=== PATIENT | female | born 1935 | race African-American/Black ===

== ENCOUNTER 2016-09-15 01:03 | Emergency (ER) | payer MEDICARE, OTHER ==
[~2016-09-15] VITALS: Ht 162.6 cm; Wt 77.1 kg
[~2016-09-15 01:03] MED LIST: ALDACTONE25 MG ORAL; ALDACTONE25 MG PO; AMLODIPINE BESYL5 MG ORAL; ASPIRIN-LOW81 MG ORAL; ATENOLOL100 MG PO; ATORVASTATIN CA10 MG ORAL; BENICAR20 MG ORAL; BUDEPRION XL300 MG ORAL; BUPROPION HCL100 MG PO; CLOPIDOGREL75 MG ORAL; CYMBALTA20 MG ORAL; DERMOTIC BOTH EARS; DEXILANT60 MG ORAL; EDARBI40 MG PO; FERROUS SULFAT325 M2 ORAL; LEVOTHYROXINE25 MCG PO; LEVOTHYROXINE50 MCG ORAL; LIDODERM700 M1 TOPIC; LIPITOR20 MG PO; LUMIGAN2.5 ML BOTH EYES; NORTRIPTYLINE H25 MG PO; OMEPRAZOLE20 MG ORAL; PREMARIN VAG CR45 GM VAGIN; RESTASIS1 EACH BOTH EYES; TENORMIN25 MG ORAL; ZANTAC150 MG ORAL; ZEMPLAR1 MC1 ORAL; ZOFRAN4 MG ORAL; [UNRECOGNIZED DRUG - OTHER] PO; [UNRECOGNIZED DRUG - REMARK]
[2016-09-15 01:40] VITALS: BP 128/87
[2016-09-15 01:46] VITALS: BP 128/87
--- NOTE | 2016-09-15 03:26 | Emergency Room Report ---
History of Present Illness General Chief Complaint: Hypertension Source: Patient, Family Member Present Illness HPI 81 YO F with history of HTN on "3 medications" came to ED because "I dont feel right and thats when my BP is high." Patient endorses compliance with meds, doesnt remember names or dosages. Denies chest pain, headache, abd pain, SOB, back pain. States her BP machine is being sent from [place], where she just moved from. Wanted to come to ED to check BP. Has appt with Dr Barbosa later this morning. BP here is 123/78. Allergies: Coded Allergies: No Known Allergies (Verified , 04/23/15) Patient History Past Medical History: HTN, CVA/TIA Past Surgical History: none Pertinent Family History: none Social History: Denies: alcohol use, drug use, smoking Now: No Immunizations: UTD Reviewed Nursing Documentation: PMH: Agreed, PSxH: Agreed Nursing Documentation-PMH Hx Cardiac Problems: Yes Hx Hypertension: Yes Hx Pacemaker: No Hx Asthma: No Hx COPD: No Hx Diabetes: No Hx Cancer: No Hx Gastrointestinal Problems: Yes Hx Dialysis: No Hx Neurological Problems: Yes Hx Cerebrovascular Accident: Yes Hx Transient Ischemic Attacks: Yes - last episode 05/05/15 Hx Seizures: No Hx Vertigo: Yes Hx Dizziness: Yes Hx Syncope: Yes Hx Headaches: Yes Hx Weakness: Yes Hx Fatigue: Yes Review of Systems All Other Systems: negative except mentioned in HPI Physical Exam Vital Signs Date Time Temp Pulse Resp B/P Pulse Ox O2 Delivery O2 Flow Rate FiO2 09/15/16 01:19 97.5 95 16 128/87 97 Room Air Sp02 EP Interpretation: reviewed, normal General Appearance: normal inspection, well appearing, no apparent distress, alert, GCS 15, non-toxic Head: normocephalic, atraumatic Eyes: bilateral eye EOMI, bilateral eye PERRL ENT: normal ENT inspection, hearing grossly normal, normal voice Neck: normal inspection, full range of motion, supple, no bony tend Respiratory: normal inspection, lungs clear, normal breath sounds, no respiratory distress, no retraction, no wheezing Cardiovascular #1: regular rate, rhythm, no edema Gastrointestinal: normal inspection, normal bowel sounds, non tender, soft, no guarding, no hernia Genitourinary: no CVA tenderness Musculoskeletal: normal inspection, back normal, normal range of motion, Ean' s Sign negative Neurologic: normal inspection, alert, oriented x3, responsive, ingredient specialist III-XII nml as tested, motor strength/tone normal, speech normal Psychiatric: normal inspection, judgement/insight normal, mood/affect normal Skin: normal inspection, normal color, no rash Medical Decision Making Diagnostic Impression: Primary Impression: Hypertension Qualified Codes: I10 - Essential (primary) hypertension ER Course 81 YO F here for BP check. it's normal. No focal neuro deficits Asymptomatic No chest pain or headache or other symptoms of end-organ damage Reassured patient Advised going to PMD appt as scheduled later today Last Vital Signs Date Time Temp Pulse Resp B/P Pulse Ox O2 Delivery O2 Flow Rate FiO2 09/15/16 01:46 97.5 16 128/87 97 Room Air 09/15/16 01:40 95 Status: improved Disposition: HOME, SELF-CARE Condition: Improved Referrals: ARNULFO VIDALES (PCP) Patient Instructions: Hypertension Additional Instructions: - Please go to your appt with Dr Barbosa today at 10am - Tell him you came to ER last night for concern of high blood pressure - Your BP was 127/87 on discharge GLENNY LAROSE M.D. Sep 15, 2016 03:26
== END 2016-09-15 01:46 | disposition home or self-care (01) ==
LOC: EMR 01:35
DX: I10 Essential (primary) hypertension (principal); R42 Dizziness and giddiness; R53.1 Weakness; R53.83 Other fatigue; Z86.73 Personal history of transient ischemic attack (TIA), and cerebral infarction without residual deficits
CPT/HCPCS: 99282

== ENCOUNTER 2016-09-17 23:01 | Emergency (ER) | payer MEDICARE ==
[~2016-09-17] VITALS: Ht 157.5 cm; Wt 68.0 kg
[2016-09-17 23:30] VITALS: BP 155/82
[2016-09-18] MEDS ORDERED: Solu-MEDROL 125mg Inj IVP ONE (00:15)
[2016-09-18 00:29] LABS: BASOPHILS % (AUTO) 1.2 % (0.0-2.0); EOSINOPHILS % (AUTO) 0.3 % (0.0-3.0); LYMPHOCYTES % (AUTO) 25.7 % (20.0-45.0); MEAN CORPUSCULAR HEMOGLOBIN 31.3 PG (27.0-31.0); MEAN CORPUSCULAR HGB CONC 32.9 G/DL (32.0-36.0); MEAN CORPUSCULAR VOLUME 95 FL (80-99); MONOCYTES % (AUTO) 8.7 % (1.0-10.0); NEUTROPHILS % (AUTO) 64.1 % (45.0-75.0); PLATELET COUNT 277 K/UL (150-450); RED BLOOD COUNT 3.33 M/UL (4.20-5.40); RED CELL DISTRIBUTION WIDTH 13.7 % (11.6-14.8); WHITE BLOOD COUNT 6.8 K/UL (4.8-10.8)
[2016-09-18 00:42] LABS: ALANINE AMINOTRANSFERASE 16 U/L (3-33); ALBUMIN/GLOBULIN RATIO 1.6 (1.0-2.7); ANION GAP 20 (5-15); ASPARTATE AMINO TRANSFERASE 27 U/L (5-40); CALCIUM 10.4 mg/dL (8.6-10.2); CARBON DIOXIDE 20 mEQ/L (20-30); CHLORIDE 90 mEQ/L (98-107); CREATININE 1.6 mg/dL (0.5-0.9); HEMOLYSIS 100; POTASSIUM 4.7 mEQ/L (3.4-4.9); SODIUM 130 mEQ/L (135-145); TOTAL PROTEIN 6.7 g/dL (6.6-8.7); TROPONIN I < 0.30 ng/mL (<=0.30)
[2016-09-18] MEDS ORDERED: LORazepam Inj 2mg/ml 1ml IV ONE (01:30)
[2016-09-18 01:44] VITALS: BP 118/53
[2016-09-18] MEDS ORDERED: RESTORIL7.5 MG ORAL (02:09)
--- NOTE | 2016-09-18 02:09 | Emergency Room Report ---
History of Present Illness General Chief Complaint: Pain Source: Patient Present Illness HPI Is an 81-year-old female with history hypertension and arthritis. She recently moved from [place] to her here. She saw new PCP. Dr. Albert stopped her trazadone. Initially she told me that it was prednisone 50mg. she said that she 's hasn't been able to sleep for last 2 days. Now with denies body pain. Denies any nausea vomiting. Denies any chest pain. Denies any cough. Also increased swelling to the joints. Allergies: Coded Allergies: No Known Allergies (Verified , 04/23/15) Patient History Past Medical History: see triage record, old chart reviewed, HTN Past Surgical History: other Pertinent Family History: none Social History: Denies: smoking Now: No Immunizations: other Reviewed Nursing Documentation: PMH: Agreed, PSxH: Agreed Nursing Documentation-PMH Hx Cardiac Problems: Yes Hx Hypertension: Yes Hx Pacemaker: No Hx Asthma: No Hx COPD: No Hx Diabetes: No Hx Cancer: No Hx Gastrointestinal Problems: Yes Hx Dialysis: No Hx Neurological Problems: Yes Hx Cerebrovascular Accident: Yes Hx Transient Ischemic Attacks: Yes - last episode 05/05/15 Hx Seizures: No Hx Vertigo: Yes Hx Dizziness: Yes Hx Syncope: Yes Hx Headaches: Yes Hx Weakness: Yes Hx Fatigue: Yes Review of Systems Eye: Denies: blurred vision, eye pain ENT: Denies: ear pain, nose congestion, throat swelling Respiratory: Denies: cough, shortness of breath Cardiovascular: Denies: chest pain, palpitations Gastrointestinal: Denies: abdominal pain, diarrhea, nausea, vomiting Musculoskeletal: Denies: back pain, joint pain Skin: Denies: rash Neurological: Denies: headache, numbness Endocrine: Denies: increased thirst, increased urine Hematologic/Lymphatic: Denies: easy bruising All Other Systems: negative except mentioned in HPI Physical Exam Vital Signs Date Time Temp Pulse Resp B/P Pulse Ox O2 Delivery O2 Flow Rate FiO2 09/17/16 23:23 97.9 72 16 164/80 97 Room Air vitals with hypertension Sp02 EP Interpretation: reviewed, normal General Appearance: well appearing, no apparent distress, alert Head: normocephalic, atraumatic Eyes: bilateral eye EOMI, bilateral eye PERRL ENT: hearing grossly normal, normal pharynx Neck: full range of motion, supple, no meningismus Respiratory: chest non-tender, lungs clear, normal breath sounds Cardiovascular #1: regular rate, rhythm, no murmur Gastrointestinal: normal bowel sounds, non tender, no mass, no organomegaly, no bruit, non-distended Musculoskeletal: back normal, gait/station normal, normal range of motion Psychiatric: mood/affect normal Skin: warm/dry Medical Decision Making Diagnostic Impression: Primary Impression: Insomnia Qualified Codes: G47.00 - Insomnia, unspecified Additional Impression: Hypertension Qualified Codes: I10 - Essential (primary) hypertension ER Course Patient presents with aches and pain secondary to insomnia. She may have underlying depression. She has a hard time falling asleep. Wake up frequently. Also it happened during the day. No suicidal thought homicidal thought. She is currently on antidepressant for this. I see no evidence of infection. Notice of ACS, PE, dissection. We'll discharge home with reassurance. She felt better after small dose of Ativan. Lab Results Impression labs unremarkable Last Vital Signs Date Time Temp Pulse Resp B/P Pulse Ox O2 Delivery O2 Flow Rate FiO2 09/18/16 01:44 98.0 63 15 118/53 99 Room Air Status: improved Disposition: HOME, SELF-CARE Condition: Stable Scripts Temazepam* (RESTORIL*) 7.5 Mg Capsule 7.5 MG ORAL BEDTIME, #20 CAP 0 Refills Prov: MYRIAM JONES M.D. 09/18/16 Additional Instructions: Followup with your DrChristianne in 2-3 days. Return if symptom worsen. MYRIAM JONES M.D. Sep 18, 2016 02:09
[2016-09-18 02:17] VITALS: BP 135/63
[2016-09-18 03:00] LABS: ERYTHROCYTE SEDIMENTATION RATE 11 MM/HR (0-42)
[2016-09-19] MEDS ORDERED: TRAZODONE HCL50 MG ORAL (20:29)
[2016-09-19] MEDS ORDERED: METOPROLOL SUCC25 MG ORAL (20:29)
== END 2016-09-18 02:18 | disposition home or self-care (01) ==
LOC: EMR 23:35
DX: G47.00 Insomnia, unspecified (principal); I10 Essential (primary) hypertension; M19.90 Unspecified osteoarthritis, unspecified site; Z87.19 Personal history of other diseases of the digestive system; Z86.73 Personal history of transient ischemic attack (TIA), and cerebral infarction without residual deficits
CPT/HCPCS: 36415; 80053; 84484; 85025; 85651; 96374; 96375; 99284; J2930

== ENCOUNTER 2016-09-19 20:03 | Inpatient (IN) | payer MEDICARE ==
[~2016-09-19] VITALS: Ht 157.5 cm; Wt 76.2 kg
[~2016-09-19 20:03] MED LIST changes: +RESTORIL7.5 MG ORAL
[2016-09-19] MEDS ORDERED: METOPROLOL SUCC25 MG ORAL (20:29)
[2016-09-19] MEDS ORDERED: TRAZODONE HCL50 MG ORAL (20:29)
[2016-09-19 22:15] LABS: APPEARANCE,URINE CLEAR; KETONES,URINE NEGATIVE (NEGATIVE); LEUKOCYTE ESTERASE ,URINE NEGATIVE (NEGATIVE); NITRITE,URINE NEGATIVE (NEGATIVE); PH,URINE 6 (4.5-8.0); PROTEIN,URINE NEGATIVE (NEGATIVE); UROBILINOGEN,URINE NORMAL MG/DL (0.0-1.0)
[2016-09-19 22:42] VITALS: BP 163/81
[2016-09-19 22:54] LABS: TROPONIN I < 0.30 ng/mL (<=0.30)
[2016-09-19 22:58] LABS: ALANINE AMINOTRANSFERASE 20 U/L (3-33); ALBUMIN/GLOBULIN RATIO 1.8 (1.0-2.7); ANION GAP 18 (5-15); ASPARTATE AMINO TRANSFERASE 33 U/L (5-40); CALCIUM 10.1 mg/dL (8.6-10.2); CARBON DIOXIDE 20 mEQ/L (20-30); CHLORIDE 91 mEQ/L (98-107); CREATININE 1.7 mg/dL (0.5-0.9); HEMOLYSIS 48; LIPASE 21 U/L (< 60); POTASSIUM 4.4 mEQ/L (3.4-4.9); SODIUM 129 mEQ/L (135-145); TOTAL PROTEIN 6.2 g/dL (6.6-8.7)
[2016-09-19 23:10] LABS: BASOPHILS % (AUTO) 0.9 % (0.0-2.0); EOSINOPHILS % (AUTO) 0.2 % (0.0-3.0); LYMPHOCYTES % (AUTO) 23.2 % (20.0-45.0); MEAN CORPUSCULAR HEMOGLOBIN 31.1 PG (27.0-31.0); MEAN CORPUSCULAR HGB CONC 32.2 G/DL (32.0-36.0); MEAN CORPUSCULAR VOLUME 97 FL (80-99); MEAN PLATELET VOLUME 6.5 FL (6.5-10.1); MONOCYTES % (AUTO) 8.4 % (1.0-10.0); NEUTROPHILS % (AUTO) 67.2 % (45.0-75.0); PLATELET COUNT 263 K/UL (150-450); RED BLOOD COUNT 3.23 M/UL (4.20-5.40); RED CELL DISTRIBUTION WIDTH 13.5 % (11.6-14.8); WHITE BLOOD COUNT 8.2 K/UL (4.8-10.8)
[2016-09-19 23:21] LABS: FREE T3 2.8 pg/mL (2.3-4.2); THYROID STIMULATING HORMONE 0.738 uIU/mL (0.300-4.500)
[2016-09-19 23:22] LABS: PROTHROMBIN TIME 10.4 SEC (9.30-11.50)
[2016-09-20] VITALS: BP 150/74
--- NOTE | 2016-09-20 00:17 | Emergency Room Report ---
History of Present Illness General Chief Complaint: Abdominal Pain Source: Patient, Family Member Present Illness HPI This patient is accompanied by her children. The patient has been seen several times here at [facility] for the same symptoms. Patient has developed bodyaches and weakness that is progressively worse over the past 5 days. She states that her muscles hurt. She states she can barely walk. She complains of ongoing abdominal pain. She states she also has a headache. She denies vomiting but has had nausea. She states that she has normal bowel movements. She denies diarrhea. She has no other complaints. Allergies: Coded Allergies: No Known Allergies (Verified , 04/23/15) Patient History Past Medical History: see triage record, HTN, [place], CAD, GERD, CVA/TIA Social History: Denies: alcohol use, drug use, smoking Last Menstrual Period: NA Now: No : 4 Reviewed Nursing Documentation: PMH: Agreed, PSxH: Agreed Nursing Documentation-PMH Hx Cardiac Problems: Yes - [place], [place] Hx Hypertension: Yes Hx Pacemaker: No Hx Asthma: No Hx COPD: No Hx Diabetes: No Hx Cancer: No Hx Gastrointestinal Problems: Yes Hx Dialysis: No Hx Neurological Problems: Yes Hx Cerebrovascular Accident: Yes Hx Transient Ischemic Attacks: Yes - last episode 05/05/15 Hx Seizures: No Hx Vertigo: Yes Hx Dizziness: Yes Hx Syncope: Yes Hx Headaches: Yes Hx Weakness: Yes Hx Fatigue: Yes Review of Systems All Other Systems: negative except mentioned in HPI Physical Exam Vital Signs Date Time Temp Pulse Resp B/P Pulse Ox O2 Delivery O2 Flow Rate FiO2 09/19/16 20:20 98.4 60 18 141/69 98 Room Air Sp02 EP Interpretation: reviewed, normal General Appearance: no apparent distress, alert, GCS 15, non-toxic Head: normocephalic, atraumatic Eyes: bilateral eye PERRL, bilateral eye normal inspection ENT: hearing grossly normal, normal pharynx, no angioedema, normal voice Neck: full range of motion, supple/symm/no masses Respiratory: chest non-tender, lungs clear, normal breath sounds, speaking full sentences Cardiovascular #1: regular rate, rhythm, no edema Gastrointestinal: normal bowel sounds, non tender, soft, non-distended, no guarding, no rebound Rectal: deferred Musculoskeletal: back normal, normal range of motion, tender - over muscles of neck, back and legs. Compartments soft. Neurologic: alert, oriented x3, responsive, motor strength/tone normal, sensory intact, speech normal Psychiatric: judgement/insight normal, memory normal, mood/affect normal, no suicidal/homicidal ideation Skin: normal color, no rash, warm/dry, well hydrated Medical Decision Making Diagnostic Impression: Primary Impression: Weakness Additional Impressions: Body aches Abdominal pain Failure to thrive ER Course This elderly female presents with failure to thrive. She is allover body aches. Possibilities to include a viral syndrome/influenza. The patient's laboratory workup showed a mild hyponatremia and a slightly elevated CK. This would not explain the patient's symptoms. There is no evidence of infection. CT of the abdomen and pelvis is unremarkable. CT of the head is unremarkable. This patient has had rapid decompensation over the past 5 days. The patient is admitted for further evaluation and treatment. Labs Test 09/19/16 21:03 09/19/16 22:00 09/19/16 23:05 Sodium Level 129 mEQ/L (135-145) Potassium Level 4.4 mEQ/L (3.4-4.9) Chloride Level 91 mEQ/L (98-107) Carbon Dioxide Level 20 mEQ/L (20-30) Anion Gap 18 (5-15) Blood Urea Nitrogen 17 mg/dL (7-23) Creatinine 1.7 mg/dL (0.5-0.9) Estimat Glomerular Filtration Rate mL/min (>60) Glucose Level 99 mg/dL (74-106) Calcium Level 10.1 mg/dL (8.6-10.2) Total Bilirubin 0.4 mg/dL (0.0-1.2) Aspartate Amino Transf (AST/SGOT) 33 U/L (5-40) Alanine Aminotransferase (ALT/SGPT) 20 U/L (3-33) Alkaline Phosphatase 49 U/L (35-104) Total Creatine Kinase 258 U/L (26-140) Troponin I < 0.30 ng/mL (<=0.30) Total Protein 6.2 g/dL (6.6-8.7) Albumin 4.0 g/dL (3.5-5.2) Globulin 2.2 g/dL Albumin/Globulin Ratio 1.8 (1.0-2.7) Lipase 21 U/L (< 60) Thyroid Stimulating Hormone (TSH) 0.738 uIU/mL (0.300-4.500) Free Thyroxine 1.52 ng/dL (0.86-1.85) Free Triiodothyronine 2.8 pg/mL (2.3-4.2) Urine Color Pale yellow Urine Appearance Clear Urine pH 6 (4.5-8.0) Urine Specific [place] 1.010 (1.005-1.035) Urine Protein Negative (NEGATIVE) Urine Glucose (UA) Negative (NEGATIVE) Urine Ketones Negative (NEGATIVE) Urine Occult Blood Negative (NEGATIVE) Urine Nitrite Negative (NEGATIVE) Urine Bilirubin Negative (NEGATIVE) Urine Urobilinogen Normal MG/DL (0.0-1.0) Urine Leukocyte Esterase Negative (NEGATIVE) White Blood Count 8.2 K/UL (4.8-10.8) Red Blood Count 3.23 M/UL (4.20-5.40) Hemoglobin 10.0 G/DL (12.0-16.0) Hematocrit 31.2 % (37.0-47.0) Mean Corpuscular Volume 97 FL (80-99) Mean Corpuscular Hemoglobin 31.1 PG (27.0-31.0) Mean Corpuscular Hemoglobin Concent 32.2 G/DL (32.0-36.0) Red Cell Distribution Width 13.5 % (11.6-14.8) Platelet Count 263 K/UL (150-450) Mean Platelet Volume 6.5 FL (6.5-10.1) Neutrophils (%) (Auto) 67.2 % (45.0-75.0) Lymphocytes (%) (Auto) 23.2 % (20.0-45.0) Monocytes (%) (Auto) 8.4 % (1.0-10.0) Eosinophils (%) (Auto) 0.2 % (0.0-3.0) Basophils (%) (Auto) 0.9 % (0.0-2.0) Prothrombin Time 10.4 SEC (9.30-11.50) Prothromb Time International Ratio 1.0 (0.9-1.1) Activated Partial Thromboplast Time 24 SEC (23-33) Chest X-Ray Diagnostic Results EP Interpretation: Yes Findings: no consolidation, no effusion, no pneumothorax, no acute cardiopulmonary disease Number of Views: 1 CT/MRI/US Diagnostic Results CT/MRI/US Diagnostic Results : Imaging Test Ordered: CT head, CT abd/pelvis Impression No acute findings. See EMR/chart for official report. Last Vital Signs Date Time Temp Pulse Resp B/P Pulse Ox O2 Delivery O2 Flow Rate FiO2 09/19/16 23:41 97.8 61 18 163/81 98 Room Air Disposition: ADMITTED INPATIENT Condition: Serious Referrals: ARNULFO VIDALES (PCP) EMILY MILSE D.O. Sep 20, 2016 00:17
[2016-09-20] MEDS: D5NS 1,000 ML IV SCH ×2 (01:15→21:10)
[2016-09-20 03:52] VITALS: BP 140/59
[2016-09-20] MEDS: Irbesartan 150mg tablet ORAL SCH (08:20)
[2016-09-20] MEDS: Aspirin EC 81mg tab ORAL SCH (08:21)
[2016-09-20] MEDS: Heparin 5000 units/ml inj SUBQ SCH ×2 (08:22→20:15)
[2016-09-20 08:34] VITALS: BP 145/59
--- NOTE | 2016-09-20 09:30 | Diagnostic Imaging Report ---
Indication: Abdominal pain x1 month Technique: Spiral acquisitions obtained through the abdomen and pelvis. No oral contrast utilized, per emergency room physician request No IV contrast utilized, per referring physician request.. Multiplanar reconstructions were generated. Total dose length product 829 mGycm. CTDIvol(s) 18 mGy Comparison: 09/06/2011 contrast study Findings: The appendix is not clearly identified, but there are no findings to suggest acute appendicitis. No evidence of diverticulosis or diverticulitis. No small bowel distention. No free or loculated intraperitoneal air or fluid is evident. There is a fusiform infrarenal abdominal aortic aneurysm, measuring 31 mm maximal diameter. This is also reported previously. No evidence of leakage or rupture. There is also ectasia of the bilateral common iliac arteries, particularly the right. Likely contrast limits assessment of the solid organs. The gallbladder is surgically absent. The liver demonstrates scattered punctate calcifications. There is ectasia of the extrahepatic bile ducts, common bile duct measuring approximately 8 mm diameter. No downstream obstructive lesion demonstrated. The pancreas is unremarkable. Calcifications are again demonstrated within the spleen. The adrenals and kidneys are unremarkable. No mesenteric or retroperitoneal mass or adenopathy. No pelvic mass or adenopathy. The uterus is absent, presumably surgically. The included lung bases demonstrate minimal dependent atelectatic changes. The heart is enlarged. The bones demonstrate marked degenerative spondylosis changes. There are anterior wedge compression fracture deformities of T9 and T10. These were not demonstrated on the prior study Impression: No definite acute process 31 mm fusiform infrarenal abdominal aortic aneurysm, also reported previously, stable. No evidence of leakage or rupture Evidence of old granulomatous disease within the liver and spleen T9 and T10 compression fracture deformities. New since 09/06/2011, acuity otherwise indeterminate although suspect not acute. Consider MRI for further correlation if this is considered clinically relevant. Ectatic extrahepatic bile ducts, probably related to age and postcholecystectomy state. Downstream obstruction not completely excludable, however. Recommend correlation with liver function tests Cardiomegaly Other findings as noted, including degenerative spondylosis, evidence of prior hysterectomy, evidence of prior cholecystectomy, dependent pulmonary parenchymal atelectasis This agrees with the preliminary interpretation provided overnight by [facility]. The CT scanner at [facility] is accredited by the [employer] and the scans are performed using protocols designed to limit radiation exposure to as low as reasonably achievable to attain images of sufficient resolution adequate for diagnostic evaluation.
[2016-09-20] MEDS ORDERED: ALPRAZolam 0.5mg tab ORAL ONE (11:30)
[2016-09-20 12:22] VITALS: BP 147/70
--- NOTE | 2016-09-20 13:34 | Diagnostic Imaging Report ---
Indication: Chest pain Technique: One view of the chest Comparison: 04/23/2015 Findings: Lungs and pleural spaces are clear. Heart size is normal. Aorta is tortuous and calcified. There is no significant interim change. There are severe degenerative changes of both shoulders again noted Impression: No acute process
--- NOTE | 2016-09-20 13:35 | Diagnostic Imaging Report ---
Indication: PAIN Technique: spiral acquisitions obtained through the brain. Angled axial and coronal 5 x 5 mm slices were reconstructed. No IV contrast utilized. Radiation dose was minimized using automated exposure control Total dose length product 1300 mGycm. CTDIvol(s) 70 mGy Comparison: 04/23/2015 FINDINGS: No acute hemorrhage or edema. No mass effect or midline shift. There is age-related enlargement of the ventricles and extra axial CSF spaces. There is periventricular deep white matter ischemic change. There is encephalomalacia of the posterior right frontal lobe. Normal hampton-white differentiation. Visualized orbits are unremarkable. Visualized sinuses are unremarkable. Intact calvarium. Findings are unchanged IMPRESSION: Chronic and age-related changes. Negative for acute intracranial bleed or mass effect Old right high frontal infarct again demonstrated This agrees with the preliminary interpretation provided overnight by [facility]. The CT scanner at [facility] is accredited by the [employer] and the scans are performed using protocols designed to limit radiation exposure to as low as reasonably achievable to attain images of sufficient resolution adequate for diagnostic evaluation
--- NOTE | 2016-09-20 14:25 | GI Initial Consult Note ---
Soo Jones NChristiannePChristianne 09/20/16 1425: History of Present Illness General Date patient seen: Sep 20, 2016 Time patient seen: 12:00 Reason for Hospitalization: Abdominal Pain Referring physician: ARNULFO WHARTON Reason for Consultation: ABDOMINAL PAIN x 5 days Present Illness HPI This patient is accompanied by her children. The patient has been seen several times here at [facility] for the same symptoms. Patient has developed bodyaches and weakness that is progressively worse over the past 5 days. She states that her muscles hurt. She states she can barely walk. She complains of ongoing abdominal pain. She states she also has a headache. She denies vomiting but has had nausea. She states that she has normal bowel movements. She denies diarrhea. She has no other complaints. GI CONSULT: HPI as noted above. Pt seen on floor awake, A&Ox2 NAD. According to the patient, she suffers from anxiety and states her abdominal suddenly does not hurt anymore. ROS limited, patient presents with anemia of chronic disease. APCT, LFTs, UA unremarkable. Unknown history of any endoscopic procedures. Procedure: CT Abdomen Pelvis WO Contrast Indication: Abdominal pain x1 month Impression: No definite acute process 31 mm fusiform infrarenal abdominal aortic aneurysm, also reported previously, stable. No evidence of leakage or rupture Evidence of old granulomatous disease within the liver and spleen T9 and T10 compression fracture deformities. New since 09/06/2011, acuity otherwise indeterminate although suspect not acute. Consider MRI for further correlation if this is considered clinically relevant. Ectatic extrahepatic bile ducts, probably related to age and postcholecystectomy state. Downstream obstruction not completely excludable, however. Recommend correlation with liver function tests Cardiomegaly Other findings as noted, including degenerative spondylosis, evidence of prior hysterectomy, evidence of prior cholecystectomy, dependent pulmonary parenchymal atelectasis Home Meds Active Scripts Temazepam* (RESTORIL*) 7.5 Mg Capsule, 7.5 MG ORAL BEDTIME, #20 CAP 0 Refills Prov:MYRIAM JONES M.D. 09/18/16 Reported Medications Metoprolol Succinate* (METOPROLOL SUCCINATE*) 25 Mg Tab.er.24h, ORAL DAILY, TAB 09/19/16 Trazodone Hcl* (DESYREL*) 50 Mg Tablet, ORAL BEDTIME, TAB 09/19/16 Atorvastatin Calcium* (LIPITOR*) 10 Mg Tablet, 10 MG ORAL BEDTIME, TAB 06/22/15 Dexlansoprazole (Dexilant) 60 Mg Kaushal., 60 MG ORAL DAILY, CAP 04/24/15 Olmesartan Medoxomil (BENICAR) 20 Mg Tablet, 20 MG ORAL DAILY, TAB 04/24/15 Spironolactone (ALDACTONE) 25 Mg Tablet, 25 MG ORAL DAILY, TAB 04/24/15 Clopidogrel* (CLOPIDOGREL*) 75 Mg Tablet, 75 MG ORAL DAILY, TAB 04/24/15 Lidocaine (Lidoderm) 700 Mg Adh..patch, 1 PATCH TOPIC, #7 PATCH 0 Refills Patch(es) may remain in place for up to 12 hours in any 24-hour period. 04/24/15 Cyclosporine (RESTASIS) 1 Each Droperette, 1 DROP BOTH EYES EVERY 12 HOURS, #1 EA 0 Refills 04/24/15 Nortriptyline HCl (Nortriptyline HCl) 25 Mg Cap, 25 MG PO BEDTIME, CAP 04/24/15 Bimatoprost (LUMIGAN) 2.5 Ml Drops, 1 DROP BOTH EYES DAILY, #2.5 ML 0 Refills 04/24/15 Duloxetine (Cymbalta) 20 Mg Cap, 20 MG ORAL DAILY, CAP 04/24/15 Aspirin (Aspirin EC) 81 Mg Tabec, 81 MG ORAL DAILY, TAB 02/11/13 Levothyroxine Sodium* (LEVOTHYROXINE SODIUM*) 50 Mcg Tablet, 50 MCG ORAL DAILY Take in the morning on an empty stomach, at least 30 minutes before food. 02/11/13 Ondansetron (Zofran) 4 Mg Tab, 4 MG ORAL Q6HR Y for Nausea & Vomiting, TAB 05/07/12 Med list reviewed/reconciled: Yes Allergies: Coded Allergies: No Known Allergies (Verified , 04/23/15) Patient History Limited by: medical condition History Provided By: Medical Record PMH Narrative Past Medical History: see triage record, HTN, [place], CAD, GERD, CVA/TIA Social History: Denies: alcohol use, drug use, smoking Last Menstrual Period: NA Now: No : 4 Reviewed Nursing Documentation: PMH: Agreed, PSxH: Agreed Nursing Documentation-PMH Hx Cardiac Problems: Yes - STENT, [place] Hx Hypertension: Yes Hx Pacemaker: No Hx Asthma: No Hx COPD: No Hx Diabetes: No Hx Cancer: No Hx Gastrointestinal Problems: Yes Hx Dialysis: No Hx Neurological Problems: Yes Hx Cerebrovascular Accident: Yes Hx Transient Ischemic Attacks: Yes - last episode 05/05/15 Hx Seizures: No Hx Vertigo: Yes Hx Dizziness: Yes Hx Syncope: Yes Hx Headaches: Yes Hx Weakness: Yes Hx Fatigue: Yes Review of Systems All Other Systems: negative except mentioned in HPI Physical Exam Vital Signs Date Time Temp Pulse Resp B/P Pulse Ox O2 Delivery O2 Flow Rate FiO2 09/19/16 20:20 98.4 60 18 141/69 98 Room Air Sp02 EP Interpretation: reviewed Labs Laboratory Tests Test 09/19/16 21:03 09/19/16 22:00 09/19/16 23:05 Sodium Level 129 mEQ/L (135-145) L Potassium Level 4.4 mEQ/L (3.4-4.9) Chloride Level 91 mEQ/L (98-107) L Carbon Dioxide Level 20 mEQ/L (20-30) Anion Gap 18 (5-15) H Blood Urea Nitrogen 17 mg/dL (7-23) Creatinine 1.7 mg/dL (0.5-0.9) H Estimat Glomerular Filtration Rate mL/min (>60) Glucose Level 99 mg/dL (74-106) Calcium Level 10.1 mg/dL (8.6-10.2) Total Bilirubin 0.4 mg/dL (0.0-1.2) Aspartate Amino Transf (AST/SGOT) 33 U/L (5-40) Alanine Aminotransferase (ALT/SGPT) 20 U/L (3-33) Alkaline Phosphatase 49 U/L (35-104) Total Creatine Kinase 258 U/L (26-140) H Troponin I < 0.30 ng/mL (<=0.30) Total Protein 6.2 g/dL (6.6-8.7) L Albumin 4.0 g/dL (3.5-5.2) Globulin 2.2 g/dL Albumin/Globulin Ratio 1.8 (1.0-2.7) Lipase 21 U/L (< 60) Thyroid Stimulating Hormone (TSH) 0.738 uIU/mL (0.300-4.500) Free Thyroxine 1.52 ng/dL (0.86-1.85) Free Triiodothyronine 2.8 pg/mL (2.3-4.2) Urine Color Pale yellow Urine Appearance Clear Urine pH 6 (4.5-8.0) Urine Specific [place] 1.010 (1.005-1.035) Urine Protein Negative (NEGATIVE) Urine Glucose (UA) Negative (NEGATIVE) Urine Ketones Negative (NEGATIVE) Urine Occult Blood Negative (NEGATIVE) Urine Nitrite Negative (NEGATIVE) Urine Bilirubin Negative (NEGATIVE) Urine Urobilinogen Normal MG/DL (0.0-1.0) Urine Leukocyte Esterase Negative (NEGATIVE) White Blood Count 8.2 K/UL (4.8-10.8) Red Blood Count 3.23 M/UL (4.20-5.40) L Hemoglobin 10.0 G/DL (12.0-16.0) L Hematocrit 31.2 % (37.0-47.0) L Mean Corpuscular Volume 97 FL (80-99) Mean Corpuscular Hemoglobin 31.1 PG (27.0-31.0) H Mean Corpuscular Hemoglobin Concent 32.2 G/DL (32.0-36.0) Red Cell Distribution Width 13.5 % (11.6-14.8) Platelet Count 263 K/UL (150-450) Mean Platelet Volume 6.5 FL (6.5-10.1) Neutrophils (%) (Auto) 67.2 % (45.0-75.0) Lymphocytes (%) (Auto) 23.2 % (20.0-45.0) Monocytes (%) (Auto) 8.4 % (1.0-10.0) Eosinophils (%) (Auto) 0.2 % (0.0-3.0) Basophils (%) (Auto) 0.9 % (0.0-2.0) Prothrombin Time 10.4 SEC (9.30-11.50) Prothromb Time International Ratio 1.0 (0.9-1.1) Activated Partial Thromboplast Time 24 SEC (23-33) General Appearance: well appearing, no apparent distress, alert Head: normocephalic EENT: normal ENT inspection Neck: full range of motion, supple Respiratory: normal breath sounds, no respiratory distress Cardiovascular: normal rate Gastrointestinal: normal inspection, non tender, soft, normal bowel sounds Rectal: deferred Musculoskeletal: normal inspection Neurologic: normal inspection, alert Psychiatric: normal inspection, judgement/insight normal, memory normal Skin: normal inspection, normal color, no rash, warm/dry Lymphatic: normal inspection, no adenopathy Current Medications Current Medications Medications (Trade) Dose Ordered Sig/Laura Route PRN Reason Start Time Stop Time Status Last Admin Dose Admin Acetaminophen (Tylenol) 650 mg Q6H PRN ORAL Mild Pain/Temp > 100.5 09/20/16 11:15 10/20/16 11:14 Aspirin (Ecotrin) 81 mg DAILY ORAL 09/20/16 09:00 10/20/16 08:59 09/20/16 08:21 Clopidogrel Bisulfate (Plavix) 75 mg DAILY ORAL 09/20/16 09:00 10/20/16 08:59 09/20/16 08:21 Dextrose/Sodium Chloride (D5ns) 1,000 ml @ 50 mls/hr Q20H IV 09/20/16 01:15 10/20/16 01:14 09/20/16 01:15 Duloxetine HCl (Cymbalta) 20 mg DAILY ORAL 09/20/16 09:00 10/20/16 08:59 09/20/16 08:23 Heparin Sodium (Porcine) 5000 units 5,000 units EVERY 12 HOURS SUBQ 09/20/16 09:00 10/20/16 08:59 09/20/16 08:22 Irbesartan (Avapro) 150 mg DAILY ORAL 09/20/16 09:00 10/20/16 08:59 09/20/16 08:20 Levothyroxine Sodium (Synthroid) 50 mcg ACBREAKFAST ORAL 09/20/16 06:30 10/20/16 06:29 09/20/16 06:18 Metoprolol Succinate (Toprol XL) 25 mg BEDTIME ORAL 09/20/16 21:00 10/20/16 20:59 Ondansetron HCl (Zofran) 4 mg Q6H PRN ORAL Nausea & Vomiting 09/20/16 01:30 10/20/16 01:29 Pantoprazole (Protonix) 40 mg DAILY ORAL 09/20/16 09:00 10/20/16 08:59 09/20/16 08:20 GI: Plan Problems: (1) Anemia (2) Failure to thrive (3) Abdominal pain (4) Abdominal gas pain Plan APCT unremarkable chronic anemia 2/2 kidney disease will consider GI procedures symptomatic treatment anemia work up OB stool ordered monitor H&H, transfuse prn ppi pain mgmt fu labs Discussed with Dr. White. Thank you for referring this patient, we will follow. RAMIREZ WHITE 09/21/16 0920: History of Present Illness General Reason for Hospitalization: Abdominal Pain Present Illness Home Meds Active Scripts Temazepam* (RESTORIL*) 7.5 Mg Capsule, 7.5 MG ORAL BEDTIME, #20 CAP 0 Refills Prov:MYRIAM JONES M.D. 09/18/16 Reported Medications Metoprolol Succinate* (METOPROLOL SUCCINATE*) 25 Mg Tab.er.24h, ORAL DAILY, TAB 09/19/16 Trazodone Hcl* (DESYREL*) 50 Mg Tablet, ORAL BEDTIME, TAB 09/19/16 Atorvastatin Calcium* (LIPITOR*) 10 Mg Tablet, 10 MG ORAL BEDTIME, TAB 06/22/15 Dexlansoprazole (Dexilant) 60 Mg Cap., 60 MG ORAL DAILY, CAP 04/24/15 Olmesartan Medoxomil (BENICAR) 20 Mg Tablet, 20 MG ORAL DAILY, TAB 04/24/15 Spironolactone (ALDACTONE) 25 Mg Tablet, 25 MG ORAL DAILY, TAB 04/24/15 Clopidogrel* (CLOPIDOGREL*) 75 Mg Tablet, 75 MG ORAL DAILY, TAB 04/24/15 Lidocaine (Lidoderm) 700 Mg Adh..patch, 1 PATCH TOPIC, #7 PATCH 0 Refills Patch(es) may remain in place for up to 12 hours in any 24-hour period. 04/24/15 Cyclosporine (RESTASIS) 1 Each Droperette, 1 DROP BOTH EYES EVERY 12 HOURS, #1 EA 0 Refills 04/24/15 Nortriptyline HCl (Nortriptyline HCl) 25 Mg Cap, 25 MG PO BEDTIME, CAP 04/24/15 Bimatoprost (LUMIGAN) 2.5 Ml Drops, 1 DROP BOTH EYES DAILY, #2.5 ML 0 Refills 04/24/15 Duloxetine (Cymbalta) 20 Mg Cap, 20 MG ORAL DAILY, CAP 04/24/15 Aspirin (Aspirin EC) 81 Mg Tabec, 81 MG ORAL DAILY, TAB 02/11/13 Levothyroxine Sodium* (LEVOTHYROXINE SODIUM*) 50 Mcg Tablet, 50 MCG ORAL DAILY Take in the morning on an empty stomach, at least 30 minutes before food. 02/11/13 Ondansetron (Zofran) 4 Mg Tab, 4 MG ORAL Q6HR Y for Nausea & Vomiting, TAB 05/07/12 Allergies: Coded Allergies: No Known Allergies (Verified , 04/23/15) Patient History Social History Narrative The patient was seen and examined at bedside and all new and available data was reviewed in the patients chart. I agree with the above findings, impression and plan. (Patient seen earlier today. Signature stamp does not reflect patient encounter time.). -Henna Ziegler MDh Milton Bull Sep 20, 2016 14:25 RAMIREZ WHITE Sep 21, 2016 12:05
[2016-09-20 15:53] VITALS: BP 122/58
--- NOTE | 2016-09-20 17:19 | Consultation ---
Consult Note Consult Note NEUROLOGY CONSULTATION: Full note dictated #[id number] 81 y/o, RH, BF with PH of HTN, DL, CAD s/p stent, stroke with left paresis, and arthritis. Was in [place] a few months ago. While there she would have days where she would feel tired, have generalized body aches and feel unwell. She then moved back to [place] about a month ago and 3 weeks ago started to have the same symptoms. ON EXAM: Problems with orientation, recent/remote memory, VS function, HCF, language. Decreased shoulder movements due to pain. Mild left paresis. Globally diminished DTRs. IMPRESSION: Generalized body pain, malaise, feeling of being ill. REC: W/U for malaise, muscle pain and cognitive decline. Consider rheumatologic w/u. Keep active. Martell Mojica M.D., M.S.P.H. MARTELL MOJICA Sep 20, 2016 17:19
--- NOTE | 2016-09-20 18:41 | Cardiology Progress Note ---
Assessment/Plan Assessment/Plan toxic metablic encephalopathy abd pain nausea chronic chhough hyponatermia ? 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 hih dose of lipitor rgiven in [place] which i recently decreased will check sed rate adn crp will have gi evlaution pulm and nruo input psych to see dc aron pro (just started ) sara pxananx untl see by psych full note dicateted Objective Last 24 Hour Vital Signs Date Time Temp Pulse Resp B/P Pulse Ox O2 Delivery O2 Flow Rate FiO2 09/20/16 15:53 97.0 62 18 122/58 100 Room Air 09/20/16 12:22 97.4 54 18 147/70 100 Room Air 09/20/16 08:34 97.0 60 18 145/59 97 Room Air 09/20/16 08:20 140/59 09/20/16 03:52 97.3 65 18 140/59 96 Room Air 09/20/16 02:57 97.3 09/20/16 00:00 97.3 64 18 150/74 96 Room Air 09/19/16 23:41 97.8 61 18 163/81 98 Room Air 09/19/16 22:42 97.8 61 18 163/81 98 Room Air 09/19/16 20:20 98.4 60 18 141/69 98 Room Air Intake and Output 09/19/16 09/20/16 19:00 07:00 Intake Total 450 ml Balance 450 ml Intake Oral 200 ml IV Total 250 ml # Voids 3 Laboratory Tests Test 09/19/16 21:03 09/19/16 22:00 09/19/16 23:05 Sodium Level 129 mEQ/L (135-145) L Potassium Level 4.4 mEQ/L (3.4-4.9) Chloride Level 91 mEQ/L (98-107) L Carbon Dioxide Level 20 mEQ/L (20-30) Anion Gap 18 (5-15) H Blood Urea Nitrogen 17 mg/dL (7-23) Creatinine 1.7 mg/dL (0.5-0.9) H Estimat Glomerular Filtration Rate mL/min (>60) Glucose Level 99 mg/dL (74-106) Calcium Level 10.1 mg/dL (8.6-10.2) Total Bilirubin 0.4 mg/dL (0.0-1.2) Aspartate Amino Transf (AST/SGOT) 33 U/L (5-40) Alanine Aminotransferase (ALT/SGPT) 20 U/L (3-33) Alkaline Phosphatase 49 U/L (35-104) Total Creatine Kinase 258 U/L (26-140) H Troponin I < 0.30 ng/mL (<=0.30) Total Protein 6.2 g/dL (6.6-8.7) L Albumin 4.0 g/dL (3.5-5.2) Globulin 2.2 g/dL Albumin/Globulin Ratio 1.8 (1.0-2.7) Lipase 21 U/L (< 60) Thyroid Stimulating Hormone (TSH) 0.738 uIU/mL (0.300-4.500) Free Thyroxine 1.52 ng/dL (0.86-1.85) Free Triiodothyronine 2.8 pg/mL (2.3-4.2) Urine Color Pale yellow Urine Appearance Clear Urine pH 6 (4.5-8.0) Urine Specific [place] 1.010 (1.005-1.035) Urine Protein Negative (NEGATIVE) Urine Glucose (UA) Negative (NEGATIVE) Urine Ketones Negative (NEGATIVE) Urine Occult Blood Negative (NEGATIVE) Urine Nitrite Negative (NEGATIVE) Urine Bilirubin Negative (NEGATIVE) Urine Urobilinogen Normal MG/DL (0.0-1.0) Urine Leukocyte Esterase Negative (NEGATIVE) White Blood Count 8.2 K/UL (4.8-10.8) Red Blood Count 3.23 M/UL (4.20-5.40) L Hemoglobin 10.0 G/DL (12.0-16.0) L Hematocrit 31.2 % (37.0-47.0) L Mean Corpuscular Volume 97 FL (80-99) Mean Corpuscular Hemoglobin 31.1 PG (27.0-31.0) H Mean Corpuscular Hemoglobin Concent 32.2 G/DL (32.0-36.0) Red Cell Distribution Width 13.5 % (11.6-14.8) Platelet Count 263 K/UL (150-450) Mean Platelet Volume 6.5 FL (6.5-10.1) Neutrophils (%) (Auto) 67.2 % (45.0-75.0) Lymphocytes (%) (Auto) 23.2 % (20.0-45.0) Monocytes (%) (Auto) 8.4 % (1.0-10.0) Eosinophils (%) (Auto) 0.2 % (0.0-3.0) Basophils (%) (Auto) 0.9 % (0.0-2.0) Prothrombin Time 10.4 SEC (9.30-11.50) Prothromb Time International Ratio 1.0 (0.9-1.1) Activated Partial Thromboplast Time 24 SEC (23-33) Microbiology Date/Time Source Procedure Growth Status 09/19/16 23:18 Nasal Nares Influenza Types A,B Antigen (MARIA LUISA) - Final Complete ARNULFO VIDALES Sep 20, 2016 18:41
[2016-09-20 20:00] VITALS: BP 139/62
--- NOTE | 2016-09-20 22:09 | Consultation ---
DATE OF CONSULTATION: 09/20/2016 NEUROLOGY CONSULTATION CONSULTING PHYSICIAN: Markus Mojica M.D. REQUESTING PHYSICIAN: Olayinka Albert M.D. HISTORY: Ms. Gayatri Urbano is an 81-year-old, right-handed, black lady, who does have past history of hypertension, dyslipidemia, coronary artery disease - status post stent placement, a stroke a few years ago associated with left-sided weakness, and arthritis involving multiple joints especially both shoulders. She was living in [place] until a few months ago and while she was there, she would have days and weeks where she would feel tired, had generalized body aches and pains, and would feel unwell. She was worked up for the problem there and no specific etiology was discovered. She then moved back to [place] about a month ago and then 3 weeks ago, she started to have similar symptoms and as a result of that was hospitalized yesterday. At this point in time, she complains of a feeling of malaise, has body pain involving her entire body, has had headaches when she has the body pain, but she denies any specific weakness, numbness, problems with memory, or problems with cognitive function. PAST MEDICAL HISTORY: Significant for high blood pressure, dyslipidemia, coronary artery disease - status post stent placement, stroke with left paresis a few years ago, and arthritis. FAMILY HISTORY: Two of her sisters had breast cancer. One of her sisters had lung cancer. PERSONAL HISTORY: Home: She lives with her daughter and grandchildren. 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 Habits: She smoked for a few years numerous years ago. She denies the use of alcohol or illicit drugs. PRESENT MEDICATIONS: Include metoprolol, Tylenol, heparin for DVT prophylaxis, aspirin, Plavix, Cymbalta, Avapro, Protonix, Synthroid, and Zofran. PHYSICAL EXAMINATION: GENERAL: She is a well-developed, well-nourished, slightly obese, black lady lying in bed in no acute distress. VITAL SIGNS: Pulse 62 per minute, blood pressure 122/58 mmHg, respirations 18 per minute, and temperature 97 degrees Fahrenheit. HEAD: Normocephalic and atraumatic. EENT: Examination benign. NECK: No neck rigidity was observed. NEUROLOGICAL EXAMINATION: MENTAL STATUS EXAMINATION: She was alert and awake. She was oriented to person, place, and time except for the exact date. She was able to recall 3/3 words immediately, but could only remember 2/3 words in 1 minute and 3 minutes even on the second trial. She was able to remember presidents Trump and Obama, but could not remember presidents prior to that. Her mathematical skills were impaired. Her visuospatial function was also impaired. SPEECH: She had no dysarthria. LANGUAGE: She had anomia for low-frequency words. CRANIAL NERVE EXAMINATION: II: The visual yusuf were intact to confrontation testing. III, IV & : External ocular movements were full and the pupils 3 mm in diameter, equal, round, regular, and reactive to light. V: She had normal facial sensations and the temporales, masseters, and pterygoids functioned normally. VII: She had normal facial expressions and no facial asymmetry. VIII: She was able to hear well bilaterally and had no nystagmus. IX: The palate moved symmetrically on phonation. X: She had no hoarseness of voice. XI: The sternocleidomastoids and trapezii functioned normally. XII: The tongue was in the midline without any fasciculations or atrophy. MOTOR SYSTEM: The tone was normal in all four extremities. Examination of muscle mass revealed no focal wasting. Examination of power revealed grade 5/5 power in all muscle groups tested except for both shoulders where the motion was limited by pain. She also had grade 5-/5 power in the left finger extensors and iliopsoas. SENSORY EXAMINATION: She had intact sensations to pinprick, light touch, and graphesthesia. COORDINATION: She performed well on [id number] and [id number] testing. REFLEXES: Trace+ and bilaterally symmetrical at the biceps, triceps, brachioradialis, and knees. 0 at both ankles. The plantar responses were flexor bilaterally. STANCE: She stood up with support. GAIT: She walked with support with mildly left paretic gait. DIAGNOSTIC IMPRESSION: 1. Ms. Gayatri Urbano is an 81-year-old, right-handed, black lady, who does have a past history of hypertension, dyslipidemia, hypothyroidism, coronary artery disease - status post percutaneous intervention and stent placement, stroke associated with left hemiparesis, and arthritis involving multiple joints, who a few months ago started to have periods where she felt tired but had generalized body aches and would feel unwell. This was worked up when she was in [place] with no definite diagnosis. She then moved back to [place] and felt well for some time, but then 3 weeks ago, she started to have the same symptoms. 2. On neurological examination, at this time, she does have mild problems with orientation, recent and remote memory, visuospatial function, higher cognitive function and language. She also has decreased shoulder movements due to pain and arthritis involving the joints, a mild left paresis involving the face and upper and lower extremities, and globally diminished deep tendon reflexes. She walks with mildly left paretic gait. 3. Laboratory data obtained thus far revealed that she is anemic with hemoglobin of 10.0. The chemistry panel reveals a creatinine elevated to 1.7. The CK is elevated to 258. Her total protein is down at 6.2. Her TSH, T3, and T4 are within normal range. Her urinalysis is benign. 4. At this point in time, it is unclear as to what is causing the patient's generalized body aches and pains, malaise, and feeling of being ill. It is unclear if the problem that she has represents a rheumatological problem or myopathic problem. She also is demonstrating signs of cognitive dysfunction. RECOMMENDATIONS: 1. Agree with management thus far. 2. The patient should be worked up thoroughly for treatable causes of malaise, muscle pain, and cognitive decline. In addition to the laboratory tests already done, a B12 level, folate level, vitamin D level, RPR, glycohemoglobin, and Westergren sedimentation rate should be obtained. 3. It may be worth getting a rheumatological evaluation to determine if she has connective tissue disorder that could be causing her symptoms. 4. The patient was encouraged to stay as active as possible. 5. Depending on the results of the above-mentioned tests, further recommendations will be given. Thank you for entrusting me with the care of Ms. Urbano. I shall follow her with you. Markus Mojica M.D., M.S.P.H. DR: Phil JOB#: [id number] MTDD
--- NOTE | 2016-09-20 22:39 | History and Physical Report ---
DATE OF ADMISSION: 09/19/2016 CARDIOLOGY CONSULTATION REASON FOR ADMISSION: Altered mentation and generalized weakness. HISTORY OF PRESENT ILLNESS: This is an elderly female, who is known to me prior evaluation hospitalization and she had moved to [place] for number of months and she is short of back in my office approximately 2 to 3 weeks ago and she presents because of symptoms that have been difficult to apparently diagnose. She had several hospitalizations in [place] that they could not figure out what is the cause of her symptoms and she has since been out here over the past few weeks, she has had several emergency room visits and office visits in a short period of time because of her symptoms. Most recently, I saw her in the office on 09/18/2016 and we have made some adjustments in her medications and I add some Xanax to see if the anxiety and treatment would be helpful. Nevertheless, she presents with generalized attacks that she calls for about 20 to 30 minutes. She feels very exhausted, weak, tired and unable to do much and they resolve and they occur several times a day and she had significant neck pains yesterday and that caused her to come to the emergency room in addition to the abdominal pain and nausea due to these attacks. She finally presented to the emergency room because this was a number of ER visits and other evaluations and the patient is now being admitted for those issues. PAST MEDICAL HISTORY: Positive for history of coronary artery disease. She has had a history of hypertension, chronic renal insufficiency, peripheral vascular disease, hyperlipidemia, neuropathy, B12 deficiency, cholelithiasis, degenerate joint disease, osteoporosis, glaucoma, anxiety, gastrointestinal bleed in 2008, coronary disease with history of left anterior descending artery stent with 30% to 40% left main, 0% to 40% circumflex and 40% RCA in [facility] and she has had laparoscopic cholecystectomy, bilateral salpingo-oophorectomy and she also has abdominal aortic aneurysm of approximately 3.1 cm and history of fibromyalgia syndrome as well as systemic hypertension, and hyperlipidemia as well. ALLERGIES: She has no known drug allergies. SOCIAL HISTORY: She is , retired from the [employer]. The patient has occasional cigarettes in the past, none in many years. Alcohol socially in the past as well. REVIEW OF SYSTEMS: Gastrointestinal: She has had episodes of nausea during these attacks. No vomiting. No diarrhea. No bloody stools. Genitourinary: Negative. Pulmonary: Positive for chronic cough. Constitutional: No fevers or chills but she feels extremely fatigued and tired and weak. Neurological: She had had generalized weakness to the point that she is unable to walk at times. PHYSICAL EXAMINATION: GENERAL: Shows to be an elderly female in no apparent respiratory distress at the present time. NECK: Supple. No jugular venous distention. No abdominojugular reflux noted. LUNGS: Clear to auscultation and percussion. CARDIAC: S1 is normal. S2 is normal. Regular rate and rhythm. No heaves, thrills, or gallops noted. ABDOMEN: Soft and nontender. Positive bowel sounds. EXTREMITIES: No clubbing, cyanosis, or edema. LABORATORY AND DIAGNOSTIC DATA: The patient has had a CT scan performed last night. The CT scan of abdomen and pelvis shows . ASSESSMENT: 1. Toxic metabolic encephalopathy. 2. Generalized weakness. 3. History of fibromyalgia. 4. Abdominal pain with intermittent episodes of nausea. 5. Hypertension. 6. Probable anxiety/depression. 7. History of coronary artery disease. Olayinka Albert M.D. DR: ALEIDA JOB#: [id number] CC:
[2016-09-21] VITALS: BP 156/72
[2016-09-21] MEDS: ALPRAZolam 0.5mg tab ORAL SCH ×2 (00:38→20:03)
[2016-09-21 04:00] VITALS: BP 158/92
[2016-09-21 06:28] LABS: BASOPHILS % (AUTO) 1.3 % (0.0-2.0); EOSINOPHILS % (AUTO) 0.7 % (0.0-3.0); MEAN CORPUSCULAR HEMOGLOBIN 32.5 PG (27.0-31.0); MEAN CORPUSCULAR HGB CONC 33.3 G/DL (32.0-36.0); MEAN CORPUSCULAR VOLUME 98 FL (80-99); MEAN PLATELET VOLUME 6.5 FL (6.5-10.1); MONOCYTES % (AUTO) 9.8 % (1.0-10.0); NEUTROPHILS % (AUTO) 61.2 % (45.0-75.0); PLATELET COUNT 274 K/UL (150-450); RED BLOOD COUNT 3.13 M/UL (4.20-5.40); RED CELL DISTRIBUTION WIDTH 13.5 % (11.6-14.8); WHITE BLOOD COUNT 6.4 K/UL (4.8-10.8)
[2016-09-21 06:56] LABS: HEMOGLOBIN A1C 5.9 % (< 6.0)
[2016-09-21 07:24] LABS: ANION GAP 16 (5-15); CALCIUM 9.7 mg/dL (8.6-10.2); CARBON DIOXIDE 23 mEQ/L (20-30); CHLORIDE 95 mEQ/L (98-107); CREATININE 1.4 mg/dL (0.5-0.9); HEMOLYSIS 3; MAGNESIUM 1.6 mg/dL (1.7-2.5); PHOSPHORUS 2.9 mg/dL (2.5-4.8); POTASSIUM 3.4 mEQ/L (3.4-4.9); SODIUM 134 mEQ/L (135-145)
[2016-09-21 08:17] VITALS: BP 133/60
[2016-09-21] MEDS: Aspirin EC 81mg tab ORAL SCH (08:53)
[2016-09-21] MEDS: Irbesartan 150mg tablet ORAL SCH (08:53)
[2016-09-21] MEDS: Heparin 5000 units/ml inj SUBQ SCH ×2 (09:08→20:06)
[2016-09-21] MEDS ORDERED: D5NS 1000ml IV ONE (10:56)
--- NOTE | 2016-09-21 11:21 | GI Progress Note ---
Assessment/Plan Status: stable Status Narrative Discussed with Dr. Champion. Assessment/Plan APCT unremarkable chronic anemia 2/2 kidney disease will consider GI procedures symptomatic treatment OB stool uncollected monitor H&H, transfuse prn ppi pain mgmt fu labs The patient was seen and examined at bedside and all new and available data was reviewed in the patients chart. I agree with the above findings, impression and plan. (Patient seen earlier today. Signature stamp does not reflect patient encounter time.). -Vishal Champion MD Objective Last 24 Hour Vital Signs Date Time Temp Pulse Resp B/P Pulse Ox O2 Delivery O2 Flow Rate FiO2 09/21/16 08:53 133/60 09/21/16 08:17 97.3 79 20 133/60 98 Room Air 09/21/16 04:00 76 70 93 09/21/16 04:00 97.7 76 20 158/92 98 Room Air 09/21/16 00:00 97.5 67 20 156/72 97 Room Air 09/20/16 20:13 62 122/58 09/20/16 20:00 97.7 65 20 139/62 96 Room Air 09/20/16 15:53 97.0 62 18 122/58 100 Room Air 09/20/16 12:22 97.4 54 18 147/70 100 Room Air Intake and Output 09/20/16 09/21/16 19:00 07:00 Intake Total 1080 ml 700 ml Balance 1080 ml 700 ml Intake Oral 480 ml 250 ml IV Total 600 ml 450 ml # Voids 4 5 Laboratory Tests Test 09/21/16 05:00 White Blood Count 6.4 K/UL (4.8-10.8) Red Blood Count 3.13 M/UL (4.20-5.40) L Hemoglobin 10.2 G/DL (12.0-16.0) L Hematocrit 30.6 % (37.0-47.0) L Mean Corpuscular Volume 98 FL (80-99) Mean Corpuscular Hemoglobin 32.5 PG (27.0-31.0) H Mean Corpuscular Hemoglobin Concent 33.3 G/DL (32.0-36.0) Red Cell Distribution Width 13.5 % (11.6-14.8) Platelet Count 274 K/UL (150-450) Mean Platelet Volume 6.5 FL (6.5-10.1) Neutrophils (%) (Auto) 61.2 % (45.0-75.0) Lymphocytes (%) (Auto) 27.0 % (20.0-45.0) Monocytes (%) (Auto) 9.8 % (1.0-10.0) Eosinophils (%) (Auto) 0.7 % (0.0-3.0) Basophils (%) (Auto) 1.3 % (0.0-2.0) Erythrocyte Sedimentation Rate 2 MM/HR (0-42) Sodium Level 134 mEQ/L (135-145) L Potassium Level 3.4 mEQ/L (3.4-4.9) Chloride Level 95 mEQ/L (98-107) L Carbon Dioxide Level 23 mEQ/L (20-30) Anion Gap 16 (5-15) H Blood Urea Nitrogen 13 mg/dL (7-23) Creatinine 1.4 mg/dL (0.5-0.9) H Estimat Glomerular Filtration Rate mL/min (>60) Glucose Level 138 mg/dL (74-106) H Hemoglobin A1c 5.9 % (< 6.0) Calcium Level 9.7 mg/dL (8.6-10.2) Phosphorus Level 2.9 mg/dL (2.5-4.8) Magnesium Level 1.6 mg/dL (1.7-2.5) L Iron Level 59 ug/dL (37-145) Total Iron Binding Capacity 218 ug/dL (250-400) L Percent Iron Saturation 27 % (15-50) Unsaturated Iron Binding 159 ug/dL (112-346) C-Reactive Protein, Quantitative < 0.3 mg/dL (< 0.5) Total Protein (PEP) Pending Albumin (PEP) Pending Globulin (PEP) Pending Albumin/Globulin Ratio Pending Xplbg-7-Kjekrusoj Pending Fkpzv-4-Aiywmaxrc Pending Beta Globulins Pending Beta Gamma Globulin Pending PEP Abnormal Protein Bands Pending Protein Electrophoresis Interpret Pending Lipase 33 U/L (< 60) Aldolase Pending Carcinoembryonic Antigen 4.6 ng/mL H CA 19-9 Antigen 16.30 U/mL (< 37) Vitamin B12 Level 612 pg/mL (211-946) Vitamin D 25-Hydroxy Pending 25-Hydroxy Vitamin D2 Pending 25-Hydroxy Vitamin D3 Pending Folate Pending Rapid Plasma Reagin Pending Height (Feet): 5 Height (Inches): 3.00 Weight (Pounds): 169 General Appearance: no apparent distress, alert Cardiovascular: normal rate Abdominal Exam: normal bowel sounds, non tender, soft Soo Doyle N.Yuliya Sep 21, 2016 11:21 VISHAL CHAMPION Sep 21, 2016 12:06
[2016-09-21 12:02] VITALS: BP 130/79
[2016-09-21] MEDS ORDERED: Magnesium Citrate Liq Btl ORAL ONE (15:15)
[2016-09-21 16:00] VITALS: BP 140/75
[2016-09-21] MEDS: D5NS 1,000 ML IV SCH (17:15)
[2016-09-21] MEDS: Magnesium Oxide 400mg tab ORAL SCH (17:39)
[2016-09-21] MEDS ORDERED: Milk of Magnesia 30ml Ud ORAL PRN (17:45)
--- NOTE | 2016-09-21 19:38 | Cardiology Progress Note ---
Assessment/Plan Assessment/Plan toxic metablic encephalopathy abd pain nausea chronic chhough hyponatermia ? 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 high dose of lipitor given in [place] which i recently decreased will check sed rate adn crp will have gi evaluation pulm, neuro input psych to see dc lexapro (just started ) keep xananx until see by psych full note dicateted Objective Last 24 Hour Vital Signs Date Time Temp Pulse Resp B/P Pulse Ox O2 Delivery O2 Flow Rate FiO2 09/21/16 16:00 97.2 89 20 140/75 97 09/21/16 12:02 97.0 83 18 130/79 98 Room Air 09/21/16 09:30 79 84 77 09/21/16 08:53 133/60 09/21/16 08:17 97.3 79 20 133/60 98 Room Air 09/21/16 04:00 76 70 93 09/21/16 04:00 97.7 76 20 158/92 98 Room Air 09/21/16 00:00 97.5 67 20 156/72 97 Room Air 09/20/16 20:13 62 122/58 09/20/16 20:00 97.7 65 20 139/62 96 Room Air Intake and Output 09/20/16 09/21/16 19:00 07:00 Intake Total 1080 ml 750 ml Balance 1080 ml 750 ml Intake Oral 480 ml 250 ml IV Total 600 ml 500 ml # Voids 4 5 Laboratory Tests Test 09/21/16 05:00 White Blood Count 6.4 K/UL (4.8-10.8) Red Blood Count 3.13 M/UL (4.20-5.40) L Hemoglobin 10.2 G/DL (12.0-16.0) L Hematocrit 30.6 % (37.0-47.0) L Mean Corpuscular Volume 98 FL (80-99) Mean Corpuscular Hemoglobin 32.5 PG (27.0-31.0) H Mean Corpuscular Hemoglobin Concent 33.3 G/DL (32.0-36.0) Red Cell Distribution Width 13.5 % (11.6-14.8) Platelet Count 274 K/UL (150-450) Mean Platelet Volume 6.5 FL (6.5-10.1) Neutrophils (%) (Auto) 61.2 % (45.0-75.0) Lymphocytes (%) (Auto) 27.0 % (20.0-45.0) Monocytes (%) (Auto) 9.8 % (1.0-10.0) Eosinophils (%) (Auto) 0.7 % (0.0-3.0) Basophils (%) (Auto) 1.3 % (0.0-2.0) Erythrocyte Sedimentation Rate 2 MM/HR (0-42) Sodium Level 134 mEQ/L (135-145) L Potassium Level 3.4 mEQ/L (3.4-4.9) Chloride Level 95 mEQ/L (98-107) L Carbon Dioxide Level 23 mEQ/L (20-30) Anion Gap 16 (5-15) H Blood Urea Nitrogen 13 mg/dL (7-23) Creatinine 1.4 mg/dL (0.5-0.9) H Estimat Glomerular Filtration Rate mL/min (>60) Glucose Level 138 mg/dL (74-106) H Hemoglobin A1c 5.9 % (< 6.0) Calcium Level 9.7 mg/dL (8.6-10.2) Phosphorus Level 2.9 mg/dL (2.5-4.8) Magnesium Level 1.6 mg/dL (1.7-2.5) L Iron Level 59 ug/dL (37-145) Total Iron Binding Capacity 218 ug/dL (250-400) L Percent Iron Saturation 27 % (15-50) Unsaturated Iron Binding 159 ug/dL (112-346) C-Reactive Protein, Quantitative < 0.3 mg/dL (< 0.5) Total Protein (PEP) Pending Albumin (PEP) Pending Globulin (PEP) Pending Albumin/Globulin Ratio Pending Opbkb-4-Woeeojqdl Pending Tmtcg-5-Dwlqugvya Pending Beta Globulins Pending Beta Gamma Globulin Pending PEP Abnormal Protein Bands Pending Protein Electrophoresis Interpret Pending Lipase 33 U/L (< 60) Aldolase Pending Carcinoembryonic Antigen 4.6 ng/mL H CA 19-9 Antigen 16.30 U/mL (< 37) Vitamin B12 Level 612 pg/mL (211-946) Vitamin D 25-Hydroxy Pending 25-Hydroxy Vitamin D2 Pending 25-Hydroxy Vitamin D3 Pending Folate Pending Rapid Plasma Reagin Pending Microbiology Date/Time Source Procedure Growth Status 09/19/16 23:18 Nasal Nares Influenza Types A,B Antigen (MARIA LUISA) - Final Complete ARNULFO VIDALES Sep 21, 2016 19:38
[2016-09-21] MEDS ORDERED: Fleet's Enema 133ml RECTAL ONE (19:45)
[2016-09-21 20:00] VITALS: BP 167/86
[2016-09-21] MEDS ORDERED: Fleet's Enema 133ml RECTAL PRN (20:00)
[2016-09-21] MEDS: TraZODone 50mg tab ORAL PRN (22:06)
--- NOTE | 2016-09-21 22:44 | Neurology Progress Note ---
Interim History Interim History Interim History Ms. Urbano feels a little better. The mind is clearer. The fatigue is minimally better. The generalized body pain is also better. She was able to walk better today with her grandson. She denies any new neurologic symptoms. Review of Systems Neuro Review of Systems Benign. Objective Physical Exam Last Vital Signs Date Time Temp Pulse Resp B/P Pulse Ox O2 Delivery O2 Flow Rate FiO2 09/21/16 20:03 89 140/75 09/21/16 20:00 98.4 22 96 Room Air Laboratory Tests Test 09/21/16 05:00 White Blood Count 6.4 K/UL (4.8-10.8) Red Blood Count 3.13 M/UL (4.20-5.40) L Hemoglobin 10.2 G/DL (12.0-16.0) L Hematocrit 30.6 % (37.0-47.0) L Mean Corpuscular Volume 98 FL (80-99) Mean Corpuscular Hemoglobin 32.5 PG (27.0-31.0) H Mean Corpuscular Hemoglobin Concent 33.3 G/DL (32.0-36.0) Red Cell Distribution Width 13.5 % (11.6-14.8) Platelet Count 274 K/UL (150-450) Mean Platelet Volume 6.5 FL (6.5-10.1) Neutrophils (%) (Auto) 61.2 % (45.0-75.0) Lymphocytes (%) (Auto) 27.0 % (20.0-45.0) Monocytes (%) (Auto) 9.8 % (1.0-10.0) Eosinophils (%) (Auto) 0.7 % (0.0-3.0) Basophils (%) (Auto) 1.3 % (0.0-2.0) Erythrocyte Sedimentation Rate 2 MM/HR (0-42) Sodium Level 134 mEQ/L (135-145) L Potassium Level 3.4 mEQ/L (3.4-4.9) Chloride Level 95 mEQ/L (98-107) L Carbon Dioxide Level 23 mEQ/L (20-30) Anion Gap 16 (5-15) H Blood Urea Nitrogen 13 mg/dL (7-23) Creatinine 1.4 mg/dL (0.5-0.9) H Estimat Glomerular Filtration Rate mL/min (>60) Glucose Level 138 mg/dL (74-106) H Hemoglobin A1c 5.9 % (< 6.0) Calcium Level 9.7 mg/dL (8.6-10.2) Phosphorus Level 2.9 mg/dL (2.5-4.8) Magnesium Level 1.6 mg/dL (1.7-2.5) L Iron Level 59 ug/dL (37-145) Total Iron Binding Capacity 218 ug/dL (250-400) L Percent Iron Saturation 27 % (15-50) Unsaturated Iron Binding 159 ug/dL (112-346) C-Reactive Protein, Quantitative < 0.3 mg/dL (< 0.5) Total Protein (PEP) Pending Albumin (PEP) Pending Globulin (PEP) Pending Albumin/Globulin Ratio Pending Wavql-2-Lwxjdfdyo Pending Hrgob-0-Ggierlsse Pending Beta Globulins Pending Beta Gamma Globulin Pending PEP Abnormal Protein Bands Pending Protein Electrophoresis Interpret Pending Lipase 33 U/L (< 60) Aldolase Pending Carcinoembryonic Antigen 4.6 ng/mL H CA 19-9 Antigen 16.30 U/mL (< 37) Vitamin B12 Level 612 pg/mL (211-946) Vitamin D 25-Hydroxy Pending 25-Hydroxy Vitamin D2 Pending 25-Hydroxy Vitamin D3 Pending Folate Pending Rapid Plasma Reagin Pending Neurologic Exam Objective PHYSICAL EXAMINATION: GENERAL: She is a well-developed, well-nourished, slightly obese, black lady lying in bed in no acute distress. HEAD: Normocephalic and atraumatic. EENT: Examination benign. NECK: No neck rigidity was observed. NEUROLOGICAL EXAMINATION: MENTAL STATUS EXAMINATION: She was alert and awake. She was oriented to person, place, and time except for the exact date. She was able to recall 3/3 words immediately, but could only remember 2/3 words in 1 minute and 3 minutes even on the second trial. She was able to remember presidents Trump and Obama, but could not remember presidents prior to that. Her mathematical skills were impaired. Her visuospatial function was also impaired. SPEECH: She had no dysarthria. LANGUAGE: She had anomia for low-frequency words. CRANIAL NERVE EXAMINATION: II: The visual yusuf were intact to confrontation testing. III, IV & : External ocular movements were full and the pupils 3 mm in diameter, equal, round, regular, and reactive to light. V: She had normal facial sensations and the temporales, masseters, and pterygoids functioned normally. VII: She had normal facial expressions and no facial asymmetry. VIII: She was able to hear well bilaterally and had no nystagmus. IX: The palate moved symmetrically on phonation. X: She had no hoarseness of voice. XI: The sternocleidomastoids and trapezii functioned normally. XII: The tongue was in the midline without any fasciculations or atrophy. MOTOR SYSTEM: The tone was normal in all four extremities. Examination of muscle mass revealed no focal wasting. Examination of power revealed grade 5/5 power in all muscle groups tested except for both shoulders where the motion was limited by pain. She also had grade 5-/5 power in the left finger extensors and iliopsoas. SENSORY EXAMINATION: She had intact sensations to pinprick, light touch, and graphesthesia. COORDINATION: She performed well on [id number] and [id number] testing. REFLEXES: Trace+ and bilaterally symmetrical at the biceps, triceps, brachioradialis, and knees. 0 at both ankles. The plantar responses were flexor bilaterally. STANCE: She stood up with support. GAIT: She walked with support with mildly left paretic gait. Impression/Recommendations Diagnostic Impression 1. Ms. Gayatri Urbano is an 81-year-old, right-handed, black lady, who does have a past history of hypertension, dyslipidemia, hypothyroidism, coronary artery disease - status post percutaneous intervention and stent placement, stroke associated with left hemiparesis, and arthritis involving multiple joints, who a few months ago started to have periods where she felt tired but had generalized body aches and would feel unwell. This was worked up when she was in [place] with no definite diagnosis. She then moved back to [place] and felt well for some time, but then 3 weeks ago, she started to have the same symptoms. 2. She feels better today with less malaise and less body pain. 3. On neurological examination, at this time, she does have mild problems with orientation, recent and remote memory, visuospatial function, higher cognitive function and language. She also has decreased shoulder movements due to pain and arthritis involving the joints, a mild left paresis involving the face and upper and lower extremities, and globally diminished deep tendon reflexes. She walks with mildly left paretic gait. 4. Laboratory data on my initial evaluation revealed that she was anemic with hemoglobin of 10.0. The chemistry panel revealed a creatinine elevated to 1.7. The CK was elevated to 258. Her total protein was down at 6.2. Her TSH, T3, and T4 were within normal range. Her urinalysis was benign. 5 At this point in time, it is unclear as to what is causing the patient's generalized body aches and pains, malaise, and feeling of being ill. It is unclear if the problem that she has represents a rheumatological problem or myopathic problem. She also is demonstrating signs of cognitive dysfunction. Recommendations 1. Continue present management. 2. Await complete work up for treatable causes of malaise, muscle pain, and cognitive decline. 3. It may be worth getting a rheumatological evaluation to determine if she has connective tissue disorder that could be causing her symptoms. 4. The patient was encouraged to stay as active as possible. Martell Mojica M.D., M.S.P.MARTELL PHOENIX Sep 21, 2016 22:44
--- NOTE | 2016-09-21 22:50 | Consultation ---
History of Present Illness General Date patient seen: Sep 21, 2016 Chief Complaint: Dyspnea Referring physician: ARNULFO WHARTON Reason for Consultation: Dyspnea Present Illness HPI 81 yo female with pmhx HTN, MA, CAD, GERD, CVA/TIA presenting to [facility] with c/o difficulty breathing and generalized weakness. Patient is unable to give any history but she is accomanied by family, the patient also appears very debilitated by a myraid of chronic illness. The patient is being given supplemental O2 and breathing treatments. Preliminary CXR is negative for aucte infiltrate or effusion, but the patient is noted being extremely hypovolemic and infiltrates may not be readily apparent in this context. Allergies: Coded Allergies: No Known Allergies (Verified , 04/23/15) Medication History Scheduled Aspirin (Aspirin EC), 81 MG ORAL DAILY, (Reported) Atorvastatin Calcium* (Lipitor*), 10 MG ORAL BEDTIME, (Reported) Bimatoprost (Lumigan), 1 DROP BOTH EYES DAILY, (Reported) Clopidogrel* (Clopidogrel*), 75 MG ORAL DAILY, (Reported) Cyclosporine (Restasis), 1 DROP BOTH EYES EVERY 12 HOURS, (Reported) Dexlansoprazole (Dexilant), 60 MG ORAL DAILY, (Reported) Duloxetine (Cymbalta), 20 MG ORAL DAILY, (Reported) Levothyroxine Sodium* (Levothyroxine Sodium*), 50 MCG ORAL DAILY, (Reported) Memantine Hcl* (Namenda*), 5 MG ORAL BID Metoprolol Succinate* (Metoprolol Succinate*), Unknown Dose ORAL DAILY, ( Reported) Nortriptyline HCl (Nortriptyline HCl), 25 MG PO BEDTIME, (Reported) Olmesartan Medoxomil (Benicar), 20 MG ORAL DAILY, (Reported) Sertraline Hcl* (Zoloft*), 50 MG ORAL DAILY Spironolactone (Aldactone), 25 MG ORAL DAILY, (Reported) Temazepam* (Restoril*), 7.5 MG ORAL BEDTIME Trazodone Hcl* (Desyrel*), Unknown Dose ORAL BEDTIME, (Reported) Scheduled PRN Alprazolam* (Xanax*), 0.5 MG ORAL BEDTIME PRN Ondansetron (Zofran), 4 MG ORAL Q6HR PRN for Nausea & Vomiting, (Reported) Miscellaneous Medications Lidocaine (Lidoderm), 1 PATCH TOPIC, (Reported) Patient History Healthcare decision maker Resuscitation status Full Code Advanced Directive on File No Past Medical/Surgical History Past Medical/Surgical History: (1) Arterial ischemic stroke, MCA (middle cerebral artery), right, acute (2) Hypertension (3) Abdominal gas pain (4) Hypertension (5) Anemia (6) CVA (cerebral infarction) (7) Pedal edema (8) Hypertension Review of Systems Constitutional: Reports: fever, malaise, weakness Respiratory: Reports: cough, shortness of breath, sputum, wheezing Physical Exam General Appearance: no apparent distress Lines, tubes and drains: peripheral HEENT: normocephalic, atraumatic, PERRL Neck: non-tender, normal alignment, supple, normal inspection Respiratory/Chest: chest wall non-tender, lungs clear, normal breath sounds Breasts: no masses Cardiovascular/Chest: normal peripheral pulses, normal rate, regular rhythm, no JVD Abdomen: normal bowel sounds, non tender, soft, no organomegaly Genitourinary/Rectal: normal genital exam, normal rectal exam Extremities: normal range of motion, non-tender, normal inspection Skin Exam: normal pigmentation Neurologic: responsive, abnormal CN, motor weakness, disoriented, aphasia Last 24 Hour Vital Signs Date Time Temp Pulse Resp B/P Pulse Ox O2 Delivery O2 Flow Rate FiO2 09/21/16 20:03 89 140/75 09/21/16 20:00 98.4 76 22 167/86 96 Room Air 09/21/16 17:00 79 80 77 09/21/16 16:00 97.2 89 20 140/75 97 09/21/16 12:02 97.0 83 18 130/79 98 Room Air 09/21/16 09:30 79 84 77 09/21/16 08:53 133/60 09/21/16 08:17 97.3 79 20 133/60 98 Room Air 09/21/16 04:00 76 70 93 09/21/16 04:00 97.7 76 20 158/92 98 Room Air 09/21/16 00:00 97.5 67 20 156/72 97 Room Air Intake and Output 09/20/16 09/21/16 19:00 07:00 Intake Total 1080 ml 750 ml Balance 1080 ml 750 ml Intake Oral 480 ml 250 ml IV Total 600 ml 500 ml # Voids 4 5 Laboratory Tests Test 09/21/16 05:00 White Blood Count 6.4 K/UL (4.8-10.8) Red Blood Count 3.13 M/UL (4.20-5.40) L Hemoglobin 10.2 G/DL (12.0-16.0) L Hematocrit 30.6 % (37.0-47.0) L Mean Corpuscular Volume 98 FL (80-99) Mean Corpuscular Hemoglobin 32.5 PG (27.0-31.0) H Mean Corpuscular Hemoglobin Concent 33.3 G/DL (32.0-36.0) Red Cell Distribution Width 13.5 % (11.6-14.8) Platelet Count 274 K/UL (150-450) Mean Platelet Volume 6.5 FL (6.5-10.1) Neutrophils (%) (Auto) 61.2 % (45.0-75.0) Lymphocytes (%) (Auto) 27.0 % (20.0-45.0) Monocytes (%) (Auto) 9.8 % (1.0-10.0) Eosinophils (%) (Auto) 0.7 % (0.0-3.0) Basophils (%) (Auto) 1.3 % (0.0-2.0) Erythrocyte Sedimentation Rate 2 MM/HR (0-42) Sodium Level 134 mEQ/L (135-145) L Potassium Level 3.4 mEQ/L (3.4-4.9) Chloride Level 95 mEQ/L (98-107) L Carbon Dioxide Level 23 mEQ/L (20-30) Anion Gap 16 (5-15) H Blood Urea Nitrogen 13 mg/dL (7-23) Creatinine 1.4 mg/dL (0.5-0.9) H Estimat Glomerular Filtration Rate mL/min (>60) Glucose Level 138 mg/dL (74-106) H Hemoglobin A1c 5.9 % (< 6.0) Calcium Level 9.7 mg/dL (8.6-10.2) Phosphorus Level 2.9 mg/dL (2.5-4.8) Magnesium Level 1.6 mg/dL (1.7-2.5) L Iron Level 59 ug/dL (37-145) Total Iron Binding Capacity 218 ug/dL (250-400) L Percent Iron Saturation 27 % (15-50) Unsaturated Iron Binding 159 ug/dL (112-346) C-Reactive Protein, Quantitative < 0.3 mg/dL (< 0.5) Total Protein (PEP) Pending Albumin (PEP) Pending Globulin (PEP) Pending Albumin/Globulin Ratio Pending [id number] Pending [id number] Pending Beta Globulins Pending Beta Gamma Globulin Pending PEP Abnormal Protein Bands Pending Protein Electrophoresis Interpret Pending Lipase 33 U/L (< 60) Aldolase Pending Carcinoembryonic Antigen 4.6 ng/mL H CA 19-9 Antigen 16.30 U/mL (< 37) Vitamin B12 Level 612 pg/mL (211-946) Vitamin D 25-Hydroxy Pending 25-Hydroxy Vitamin D2 Pending 25-Hydroxy Vitamin D3 Pending Folate Pending Rapid Plasma Reagin Pending Height (Feet): 5 Height (Inches): 3.00 Weight (Pounds): 169 Medications Current Medications Medications (Trade) Dose Ordered Sig/Laura Route PRN Reason Start Time Stop Time Status Last Admin Dose Admin Acetaminophen (Tylenol) 650 mg Q6H PRN ORAL Mild Pain/Temp > 100.5 09/20/16 11:15 10/20/16 11:14 09/20/16 21:10 Alprazolam (Xanax) 0.5 mg BEDTIME ORAL 09/21/16 00:15 09/28/16 00:14 09/21/16 20:03 Aspirin (Ecotrin) 81 mg DAILY ORAL 09/20/16 09:00 10/20/16 08:59 09/21/16 08:53 Clopidogrel Bisulfate (Plavix) 75 mg DAILY ORAL 09/20/16 09:00 10/20/16 08:59 09/21/16 08:53 Dextrose/Sodium Chloride (D5ns) 1,000 ml @ 50 mls/hr Q20H IV 09/20/16 01:15 10/20/16 01:14 09/20/16 21:10 Diphenhydramine HCl (Benadryl) 25 mg Q6H PRN ORAL Itching 09/21/16 17:45 10/21/16 17:44 Heparin Sodium (Porcine) 5000 units 5,000 units EVERY 12 HOURS SUBQ 09/20/16 09:00 10/20/16 08:59 09/21/16 20:06 Irbesartan (Avapro) 150 mg DAILY ORAL 09/20/16 09:00 10/20/16 08:59 09/21/16 08:53 Levothyroxine Sodium (Synthroid) 50 mcg ACBREAKFAST ORAL 09/20/16 06:30 10/20/16 06:29 09/21/16 05:53 Magnesium Hydroxide (Mom) 30 ml TIDPRN PRN ORAL Constipation 09/21/16 17:45 10/21/16 17:44 09/21/16 17:39 Magnesium Oxide (Mag-Ox 400mg) 400 mg BID ORAL 09/21/16 18:00 09/24/16 17:59 09/21/16 17:39 Metoprolol Succinate (Toprol XL) 25 mg BEDTIME ORAL 09/20/16 21:00 10/20/16 20:59 09/21/16 20:03 Ondansetron HCl (Zofran) 4 mg Q6H PRN ORAL Nausea & Vomiting 09/20/16 01:30 10/20/16 01:29 09/21/16 13:44 Pantoprazole (Protonix) 40 mg DAILY ORAL 09/20/16 09:00 10/20/16 08:59 09/21/16 08:53 Sodium Phosphate (Fleet's Sodium Phosl Enema) 133 ml DAILY PRN RECTAL Constipation 09/21/16 20:00 10/21/16 19:59 09/21/16 21:44 Trazodone HCl (Desyrel) 50 mg BEDTIME PRN ORAL insomnia 09/21/16 19:45 10/21/16 19:44 Assessment/Plan Problem List: (1) Anemia ICD Codes: D64.9 - Anemia, unspecified SNOMED: 933998441 Qualifiers: Qualified Codes: D50.9 - Iron deficiency anemia, unspecified (2) Abdominal pain ICD Codes: R10.9 - Unspecified abdominal pain SNOMED: 79386072 Qualifiers: Qualified Codes: R10.84 - Generalized abdominal pain (3) CVA (cerebral infarction) ICD Codes: I63.9 - Cerebral infarction, unspecified SNOMED: 829278026 (4) Hypertension ICD Codes: I10 - Essential (primary) hypertension SNOMED: 30298873 Qualifiers: Qualified Codes: I10 - Essential (primary) hypertension (5) Pedal edema (6) Failure to thrive SNOMED: 78717347 (7) Weakness ICD Codes: R53.1 - Weakness SNOMED: 70615128 Status: stable, progressing Assessment/Plan Empiric Antbx Antitussives Breathing Tx as needed for SOB Aspiration precautions O2 supplemental titrate FIO2 up maintain O2 above 92% Sputum [employer] Repeat CXR if symptoms worsen NANO WU Sep 21, 2016 22:50
[2016-09-22] VITALS: BP 135/64
[2016-09-22 03:21] LABS: APPEARANCE,URINE CLEAR; KETONES,URINE NEGATIVE (NEGATIVE); LEUKOCYTE ESTERASE ,URINE NEGATIVE (NEGATIVE); NITRITE,URINE NEGATIVE (NEGATIVE); PH,URINE 7 (4.5-8.0); PROTEIN,URINE NEGATIVE (NEGATIVE); UROBILINOGEN,URINE NORMAL MG/DL (0.0-1.0)
[2016-09-22 03:42] VITALS: BP 154/77
[2016-09-22 04:17] LABS: BACTERIA,URINE OCCASIONAL /HPF; RBC,URINE 0-2 /HPF (0 - 2); SQUAMOUS EPITHELIAL CELL,UR OCCASIONAL /LPF (NONE/OCC); WBC,URINE 0-2 /HPF (0 - 2)
[2016-09-22] MEDS: D5NS 1,000 ML IV SCH (04:30)
[2016-09-22 06:48] LABS: MEAN CORPUSCULAR HEMOGLOBIN 30.5 PG (27.0-31.0); MEAN CORPUSCULAR HGB CONC 32.2 G/DL (32.0-36.0); MEAN CORPUSCULAR VOLUME 95 FL (80-99); MEAN PLATELET VOLUME 6.7 FL (6.5-10.1); PLATELET COUNT 294 K/UL (150-450); RED BLOOD COUNT 3.27 M/UL (4.20-5.40); RED CELL DISTRIBUTION WIDTH 13.5 % (11.6-14.8); WHITE BLOOD COUNT 6.2 K/UL (4.8-10.8)
[2016-09-22 07:08] LABS: PROTHROMBIN TIME 10.1 SEC (9.30-11.50)
[2016-09-22 07:24] LABS: ALANINE AMINOTRANSFERASE 18 U/L (3-33); ALBUMIN/GLOBULIN RATIO 1.7 (1.0-2.7); ANION GAP 14 (5-15); ASPARTATE AMINO TRANSFERASE 20 U/L (5-40); CALCIUM 9.5 mg/dL (8.6-10.2); CARBON DIOXIDE 27 mEQ/L (20-30); CHLORIDE 96 mEQ/L (98-107); CREATININE 1.3 mg/dL (0.5-0.9); HEMOLYSIS 7; MAGNESIUM 2.2 mg/dL (1.7-2.5); POTASSIUM 3.9 mEQ/L (3.4-4.9); SODIUM 137 mEQ/L (135-145); TOTAL PROTEIN 5.8 g/dL (6.6-8.7)
[2016-09-22 07:25] LABS: FREE T3 2.5 pg/mL (2.3-4.2); LACTATE DEHYDROGENASE 251 U/L (135-230); THYROID STIMULATING HORMONE 0.674 uIU/mL (0.300-4.500); URIC ACID 6.1 mg/dL (3.0-7.5)
[2016-09-22 08:13] VITALS: BP 143/56
[2016-09-22] MEDS: Aspirin EC 81mg tab ORAL SCH (08:31)
[2016-09-22] MEDS: Irbesartan 150mg tablet ORAL SCH (08:31)
[2016-09-22] MEDS: Heparin 5000 units/ml inj SUBQ SCH ×2 (08:32→20:19)
[2016-09-22] MEDS: Magnesium Oxide 400mg tab ORAL SCH ×2 (08:34→17:42)
[2016-09-22 09:09] LABS: BAND NEUTROPHILS % (MANUAL) 0 % (0-8); BASOPHILS % (MANUAL) 0 % (0-2); EOSINOPHILS % (MANUAL) 0 % (0-3); HYPOCHROMASIA 1+; LYMPHOCYTES % (MANUAL) 29 % (20-45); NEUTROPHILS % (MANUAL) 67 % (45-75); PLATELET ESTIMATE ADEQUATE; PLATELET MORPHOLOGY NORMAL; TOTAL CELLS COUNTED 100
[2016-09-22 09:19] LABS: PATH BLOOD SMEAR/OMC SENT TO PATHOLOGIST
--- NOTE | 2016-09-22 10:51 | Pulmonology Progress Note ---
Assessment/Plan Assessment/Plan ASSESSMENT generalized weakness dehydration chronic cough abdominal pain anemia of chronic disease hyponatremia -resolved ATN on CRI - improved hypothyroidism fibromyalgia ? myopathy PLAN OF CARE MS floor gentle IVF creat down to 1.3 renal US pending likely ATN 2 to dehydration Na up to normal, likely depletional CXR negative for any acute cardiopulmonary disease no wheezing, no hemoptysis O2 HHN prn antitussive prn try Tessalon pearls confine ASA, Plavix BP management with ARB and BB neuro follows CT head no acute intracranial pathology but evidence of old R frontal CVA DVT, GI prophylaxis GI follows pain management CT A/P noted elevated CEA , normal Ca 19-9 , stable LFT, lipase consider GI procedure - per GI discretion monitor HH, transfuse prn stool OB pending, adermia workup with stable iron, B 12 and folate SPEP pending thyroid panel stable, continue current dose of levothyroxine PT/OT case discussed and evaluated by supervising physician Subjective Allergies: Coded Allergies: No Known Allergies (Verified , 04/23/15) Subjective anemic, no SOB, no chest pain + cough, dry, non productive, no wheezing, no hemoptysis on RA sat stable, no signs of respiratory distress Objective Last 24 Hour Vital Signs Date Time Temp Pulse Resp B/P Pulse Ox O2 Delivery O2 Flow Rate FiO2 09/22/16 08:31 143/56 09/22/16 08:13 97.5 63 20 143/56 99 Room Air 09/22/16 03:42 98.0 73 18 154/77 96 Room Air 09/22/16 01:00 74 70 76 09/22/16 00:00 98.1 74 18 135/64 98 Room Air 09/21/16 20:03 89 140/75 09/21/16 20:00 98.4 76 22 167/86 96 Room Air 09/21/16 17:00 79 80 77 09/21/16 16:00 97.2 89 20 140/75 97 09/21/16 12:02 97.0 83 18 130/79 98 Room Air Intake and Output 09/21/16 09/22/16 19:00 07:00 Intake Total 442 ml 1230 ml Output Total 600 ml Balance 442 ml 630 ml Intake Oral 242 ml 780 ml IV Total 200 ml 450 ml Output Urine Total 600 ml # Voids 1 8 General Appearance: no acute distress, other - awake, alert, oriented AA female in NAD HEENT: normocephalic, atraumatic, anicteric, mucous membranes moist Respiratory/Chest: lungs clear, no respiratory distress, no accessory muscle use Cardiovascular: normal peripheral pulses, normal rate, regular rhythm, no JVD Abdomen: normal bowel sounds, soft, non tender, non distended Genitourinary: normal external genitalia Extremities: no edema, pedal pulses normal Neurologic/Psychiatric: alert, responsive Musculoskeletal: atrophy - BLE Microbiology Date/Time Source Procedure Growth Status 09/19/16 23:18 Nasal Nares Influenza Types A,B Antigen (MARIA LUISA) - Final Complete Laboratory Tests 09/21/16 22:00: Stool Occult Blood Negative 09/22/16 02:45: Urine Color Yellow, Urine Appearance Clear, Urine pH 7, Urine Specific [place] 1.005, Urine Protein Negative, Urine Glucose (UA) Negative, Urine Ketones Negative, Urine Occult Blood Negative, Urine Nitrite Negative, Urine Bilirubin Negative, Urine Urobilinogen Normal, Urine Leukocyte Esterase Negative, Urine RBC 0-2, Urine WBC 0-2, Urine Squamous Epithelial Cells Occasional, Urine Bacteria Occasional, Urine Eosinophils None seen, Urine Osmolality [Pending], Urine Random Sodium 116, Urine Random Chloride 105, Urine Potassium Timed 11 09/22/16 05:40: White Blood Count 6.2, Red Blood Count 3.27L, Hemoglobin 10.0L, Hematocrit 30.9L , Mean Corpuscular Volume 95, Mean Corpuscular Hemoglobin 30.5, Mean Corpuscular Hemoglobin Concent 32.2, Red Cell Distribution Width 13.5, Platelet Count 294, Mean Platelet Volume 6.7, Neutrophils (%) (Auto) , Lymphocytes (%) ( Auto) , Monocytes (%) (Auto) , Eosinophils (%) (Auto) , Basophils (%) (Auto) , Differential Total Cells Counted 100, Neutrophils % (Manual) 67, Lymphocytes % ( Manual) 29, Monocytes % (Manual) 4, Eosinophils % (Manual) 0, Basophils % ( Manual) 0, Band Neutrophils 0, Platelet Estimate Adequate, Platelet Morphology Normal, Hypochromasia 1+, Erythrocyte Sedimentation Rate 10, Reticulocyte Count [Pending], Prothrombin Time 10.1, Prothromb Time International Ratio 1.0, Activated Partial Thromboplast Time 28, Sodium Level 137, Potassium Level 3.9, Chloride Level 96L, Carbon Dioxide Level 27, Anion Gap 14, Blood Urea Nitrogen 11, Creatinine 1.3H, Estimat Glomerular Filtration Rate , Glucose Level 115H, Plasma/Serum Osmolality [Pending], Uric Acid 6.1, Calcium Level 9.5, Magnesium Level 2.2, Total Bilirubin 0.5, Aspartate Amino Transf (AST/SGOT) 20, Alanine Aminotransferase (ALT/SGPT) 18, Alkaline Phosphatase 50, Lactate Dehydrogenase 251H, Total Creatine Kinase 90, Total Protein 5.8L, Albumin 3.7, Globulin 2.1, Albumin/Globulin Ratio 1.7, Thyroid Stimulating Hormone (TSH) 0.674, Free Thyroxine 1.52, Free Triiodothyronine 2.5, Cortisol [Pending] Current Medications Medications (Trade) Dose Ordered Sig/Laura Route PRN Reason Start Time Stop Time Status Last Admin Dose Admin Acetaminophen (Tylenol) 650 mg Q6H PRN ORAL Mild Pain/Temp > 100.5 09/20/16 11:15 10/20/16 11:14 09/20/16 21:10 Alprazolam (Xanax) 0.5 mg BEDTIME ORAL 09/21/16 00:15 09/28/16 00:14 09/21/16 20:03 Aspirin (Ecotrin) 81 mg DAILY ORAL 09/20/16 09:00 10/20/16 08:59 09/22/16 08:31 Clopidogrel Bisulfate (Plavix) 75 mg DAILY ORAL 09/20/16 09:00 10/20/16 08:59 09/22/16 08:30 Dextrose/Sodium Chloride (D5ns) 1,000 ml @ 50 mls/hr Q20H IV 09/20/16 01:15 10/20/16 01:14 09/22/16 04:30 Diphenhydramine HCl (Benadryl) 25 mg Q6H PRN ORAL Itching 09/21/16 17:45 10/21/16 17:44 Heparin Sodium (Porcine) 5000 units 5,000 units EVERY 12 HOURS SUBQ 09/20/16 09:00 10/20/16 08:59 09/22/16 08:32 Irbesartan (Avapro) 150 mg DAILY ORAL 09/20/16 09:00 10/20/16 08:59 09/22/16 08:31 Levothyroxine Sodium (Synthroid) 50 mcg ACBREAKFAST ORAL 09/20/16 06:30 10/20/16 06:29 09/22/16 05:46 Magnesium Hydroxide (Mom) 30 ml TIDPRN PRN ORAL Constipation 09/21/16 17:45 10/21/16 17:44 09/21/16 17:39 Magnesium Oxide (Mag-Ox 400mg) 400 mg BID ORAL 09/21/16 18:00 09/24/16 17:59 09/22/16 08:34 Memantine (Namenda) 5 mg BID ORAL 09/22/16 18:00 10/22/16 17:59 Metoprolol Succinate (Toprol XL) 25 mg BEDTIME ORAL 09/20/16 21:00 10/20/16 20:59 09/21/16 20:03 Ondansetron HCl (Zofran) 4 mg Q6H PRN ORAL Nausea & Vomiting 09/20/16 01:30 10/20/16 01:29 09/21/16 13:44 Pantoprazole (Protonix) 40 mg DAILY ORAL 09/20/16 09:00 10/20/16 08:59 09/22/16 08:31 Sertraline HCl (Zoloft) 50 mg DAILY ORAL 09/23/16 09:00 10/23/16 08:59 Sodium Phosphate (Fleet's Sodium Phosl Enema) 133 ml DAILY PRN RECTAL Constipation 09/21/16 20:00 10/21/16 19:59 09/21/16 21:44 Trazodone HCl (Desyrel) 50 mg BEDTIME PRN ORAL insomnia 09/21/16 19:45 10/21/16 19:44 Ben Elenanaun)Patricia NP Sep 22, 2016 10:51
[2016-09-22 11:03] LABS: RETICULOCYTE COUNT 0.9 % (0.0-2.0)
--- NOTE | 2016-09-22 11:04 | GI Progress Note ---
Assessment/Plan Problems: (1) Failure to thrive SNOMED: 20681006 (2) Anemia ICD Codes: D64.9 - Anemia, unspecified SNOMED: 828962387 (3) Abdominal pain ICD Codes: R10.9 - Unspecified abdominal pain SNOMED: 30289648 (4) Weakness ICD Codes: R53.1 - Weakness SNOMED: 35819062 Status: stable, unchanged Status Narrative Discussed with Dr. Champion. Assessment/Plan ok DC per GI standpoint APCT unremarkable chronic anemia 2/2 kidney disease outpatient GI procedures OB stool negative symptomatic treatment OB stool uncollected stable H&H, transfuse prn ppi pain mgmt PT eval fu labs The patient was seen and examined at bedside and all new and available data was reviewed in the patients chart. I agree with the above findings, impression and plan. (Patient seen earlier today. Signature stamp does not reflect patient encounter time.). -Vishal Champion MD Subjective Gastrointestinal/Abdominal: Reports: no symptoms Subjective generalized weakness Objective Last 24 Hour Vital Signs Date Time Temp Pulse Resp B/P Pulse Ox O2 Delivery O2 Flow Rate FiO2 09/22/16 08:31 143/56 09/22/16 08:13 97.5 63 20 143/56 99 Room Air 09/22/16 03:42 98.0 73 18 154/77 96 Room Air 09/22/16 01:00 74 70 76 09/22/16 00:00 98.1 74 18 135/64 98 Room Air 09/21/16 20:03 89 140/75 09/21/16 20:00 98.4 76 22 167/86 96 Room Air 09/21/16 17:00 79 80 77 09/21/16 16:00 97.2 89 20 140/75 97 09/21/16 12:02 97.0 83 18 130/79 98 Room Air Intake and Output 09/21/16 09/22/16 19:00 07:00 Intake Total 442 ml 1230 ml Output Total 600 ml Balance 442 ml 630 ml Intake Oral 242 ml 780 ml IV Total 200 ml 450 ml Output Urine Total 600 ml # Voids 1 8 Laboratory Tests Test 09/21/16 22:00 09/22/16 02:45 09/22/16 05:40 Stool Occult Blood Negative (NEGATIVE) Urine Color Yellow Urine Appearance Clear Urine pH 7 (4.5-8.0) Urine Specific [place] 1.005 (1.005-1.035) Urine Protein Negative (NEGATIVE) Urine Glucose (UA) Negative (NEGATIVE) Urine Ketones Negative (NEGATIVE) Urine Occult Blood Negative (NEGATIVE) Urine Nitrite Negative (NEGATIVE) Urine Bilirubin Negative (NEGATIVE) Urine Urobilinogen Normal MG/DL (0.0-1.0) Urine Leukocyte Esterase Negative (NEGATIVE) Urine RBC 0-2 /HPF (0 - 2) Urine WBC 0-2 /HPF (0 - 2) Urine Squamous Epithelial Cells Occasional /LPF Urine Bacteria Occasional /HPF (NONE) Urine Eosinophils None seen Urine Osmolality Pending Urine Random Sodium 116 mmol/L Urine Random Chloride 105 mmol/L Urine Potassium Timed 11 mmol/L White Blood Count 6.2 K/UL (4.8-10.8) Red Blood Count 3.27 M/UL (4.20-5.40) L Hemoglobin 10.0 G/DL (12.0-16.0) L Hematocrit 30.9 % (37.0-47.0) L Mean Corpuscular Volume 95 FL (80-99) Mean Corpuscular Hemoglobin 30.5 PG (27.0-31.0) Mean Corpuscular Hemoglobin Concent 32.2 G/DL (32.0-36.0) Red Cell Distribution Width 13.5 % (11.6-14.8) Platelet Count 294 K/UL (150-450) Mean Platelet Volume 6.7 FL (6.5-10.1) Neutrophils (%) (Auto) % (45.0-75.0) Lymphocytes (%) (Auto) % (20.0-45.0) Monocytes (%) (Auto) % (1.0-10.0) Eosinophils (%) (Auto) % (0.0-3.0) Basophils (%) (Auto) % (0.0-2.0) Differential Total Cells Counted 100 Neutrophils % (Manual) 67 % (45-75) Lymphocytes % (Manual) 29 % (20-45) Monocytes % (Manual) 4 % (1-10) Eosinophils % (Manual) 0 % (0-3) Basophils % (Manual) 0 % (0-2) Band Neutrophils 0 % (0-8) Platelet Estimate Adequate Platelet Morphology Normal Hypochromasia 1+ Erythrocyte Sedimentation Rate 10 MM/HR (0-42) Reticulocyte Count Pending Prothrombin Time 10.1 SEC (9.30-11.50) Prothromb Time International Ratio 1.0 (0.9-1.1) Activated Partial Thromboplast Time 28 SEC (23-33) Sodium Level 137 mEQ/L (135-145) Potassium Level 3.9 mEQ/L (3.4-4.9) Chloride Level 96 mEQ/L (98-107) L Carbon Dioxide Level 27 mEQ/L (20-30) Anion Gap 14 (5-15) Blood Urea Nitrogen 11 mg/dL (7-23) Creatinine 1.3 mg/dL (0.5-0.9) H Estimat Glomerular Filtration Rate mL/min (>60) Glucose Level 115 mg/dL (74-106) H Plasma/Serum Osmolality Pending Uric Acid 6.1 mg/dL (3.0-7.5) Calcium Level 9.5 mg/dL (8.6-10.2) Magnesium Level 2.2 mg/dL (1.7-2.5) Total Bilirubin 0.5 mg/dL (0.0-1.2) Aspartate Amino Transf (AST/SGOT) 20 U/L (5-40) Alanine Aminotransferase (ALT/SGPT) 18 U/L (3-33) Alkaline Phosphatase 50 U/L (35-104) Lactate Dehydrogenase 251 U/L (135-230) H Total Creatine Kinase 90 U/L (26-140) Total Protein 5.8 g/dL (6.6-8.7) L Albumin 3.7 g/dL (3.5-5.2) Globulin 2.1 g/dL Albumin/Globulin Ratio 1.7 (1.0-2.7) Thyroid Stimulating Hormone (TSH) 0.674 uIU/mL (0.300-4.500) Free Thyroxine 1.52 ng/dL (0.86-1.85) Free Triiodothyronine 2.5 pg/mL (2.3-4.2) Cortisol Pending Height (Feet): 5 Height (Inches): 3.00 Weight (Pounds): 169 General Appearance: no apparent distress, alert, overweight Cardiovascular: normal rate Respiratory/Chest: normal breath sounds, no respiratory distress Abdominal Exam: normal bowel sounds, non tender, soft Extremities: normal range of motion Soo Doyle N.P. Sep 22, 2016 11:04 VISHAL CHAMPION Sep 22, 2016 13:04
[2016-09-22 12:00] VITALS: BP 151/74
[2016-09-22] MEDS: Benzonatate 100mg Perles ORAL SCH ×2 (13:48→17:42)
[2016-09-22 14:18] LABS: ABNORMAL PROTEIN BAND 1 Not Observed g/dL (Not Observed); ALBUMIN 3.8 g/dL (2.9-4.4); ALPHA-1 GLOBULIN 0.2 g/dL (0.0-0.4); ALPHA-2 GLOBULIN 0.5 g/dL (0.4-1.0); BETA GLOBULIN 0.7 g/dL (0.7-1.3); GAMMA GLOBULIN 0.5 g/dL (0.4-1.8); GLOBULIN, TOTAL 1.9 g/dL (2.2-3.9); TOTAL PROTEIN 5.7 g/dL (6.0-8.5)
--- NOTE | 2016-09-22 14:50 | Neurology Progress Note ---
Interim History Interim History Interim History Ms. Urbano feels better. She is sitting up in a chair. The mind is clearer. The fatigue is better. The generalized body pain is also better. She was able to walk better today with the PT. She denies any new neurologic symptoms. Review of Systems Neuro Review of Systems Benign. Objective Physical Exam Last Vital Signs Date Time Temp Pulse Resp B/P Pulse Ox O2 Delivery O2 Flow Rate FiO2 09/22/16 12:05 97.5 09/22/16 12:00 63 22 151/74 99 Room Air Laboratory Tests Test 09/21/16 22:00 09/22/16 02:45 09/22/16 05:40 Stool Occult Blood Negative (NEGATIVE) Urine Color Yellow Urine Appearance Clear Urine pH 7 (4.5-8.0) Urine Specific [place] 1.005 (1.005-1.035) Urine Protein Negative (NEGATIVE) Urine Glucose (UA) Negative (NEGATIVE) Urine Ketones Negative (NEGATIVE) Urine Occult Blood Negative (NEGATIVE) Urine Nitrite Negative (NEGATIVE) Urine Bilirubin Negative (NEGATIVE) Urine Urobilinogen Normal MG/DL (0.0-1.0) Urine Leukocyte Esterase Negative (NEGATIVE) Urine RBC 0-2 /HPF (0 - 2) Urine WBC 0-2 /HPF (0 - 2) Urine Squamous Epithelial Cells Occasional /LPF Urine Bacteria Occasional /HPF (NONE) Urine Eosinophils None seen Urine Osmolality Pending Urine Random Sodium 116 mmol/L Urine Random Chloride 105 mmol/L Urine Potassium Timed 11 mmol/L White Blood Count 6.2 K/UL (4.8-10.8) Red Blood Count 3.27 M/UL (4.20-5.40) L Hemoglobin 10.0 G/DL (12.0-16.0) L Hematocrit 30.9 % (37.0-47.0) L Mean Corpuscular Volume 95 FL (80-99) Mean Corpuscular Hemoglobin 30.5 PG (27.0-31.0) Mean Corpuscular Hemoglobin Concent 32.2 G/DL (32.0-36.0) Red Cell Distribution Width 13.5 % (11.6-14.8) Platelet Count 294 K/UL (150-450) Mean Platelet Volume 6.7 FL (6.5-10.1) Neutrophils (%) (Auto) % (45.0-75.0) Lymphocytes (%) (Auto) % (20.0-45.0) Monocytes (%) (Auto) % (1.0-10.0) Eosinophils (%) (Auto) % (0.0-3.0) Basophils (%) (Auto) % (0.0-2.0) Differential Total Cells Counted 100 Neutrophils % (Manual) 67 % (45-75) Lymphocytes % (Manual) 29 % (20-45) Monocytes % (Manual) 4 % (1-10) Eosinophils % (Manual) 0 % (0-3) Basophils % (Manual) 0 % (0-2) Band Neutrophils 0 % (0-8) Platelet Estimate Adequate Platelet Morphology Normal Hypochromasia 1+ Erythrocyte Sedimentation Rate 10 MM/HR (0-42) Reticulocyte Count 0.9 % (0.0-2.0) Prothrombin Time 10.1 SEC (9.30-11.50) Prothromb Time International Ratio 1.0 (0.9-1.1) Activated Partial Thromboplast Time 28 SEC (23-33) Sodium Level 137 mEQ/L (135-145) Potassium Level 3.9 mEQ/L (3.4-4.9) Chloride Level 96 mEQ/L (98-107) L Carbon Dioxide Level 27 mEQ/L (20-30) Anion Gap 14 (5-15) Blood Urea Nitrogen 11 mg/dL (7-23) Creatinine 1.3 mg/dL (0.5-0.9) H Estimat Glomerular Filtration Rate mL/min (>60) Glucose Level 115 mg/dL (74-106) H Plasma/Serum Osmolality Pending Uric Acid 6.1 mg/dL (3.0-7.5) Calcium Level 9.5 mg/dL (8.6-10.2) Magnesium Level 2.2 mg/dL (1.7-2.5) Total Bilirubin 0.5 mg/dL (0.0-1.2) Aspartate Amino Transf (AST/SGOT) 20 U/L (5-40) Alanine Aminotransferase (ALT/SGPT) 18 U/L (3-33) Alkaline Phosphatase 50 U/L (35-104) Lactate Dehydrogenase 251 U/L (135-230) H Total Creatine Kinase 90 U/L (26-140) Total Protein 5.8 g/dL (6.6-8.7) L Albumin 3.7 g/dL (3.5-5.2) Globulin 2.1 g/dL Albumin/Globulin Ratio 1.7 (1.0-2.7) Thyroid Stimulating Hormone (TSH) 0.674 uIU/mL (0.300-4.500) Free Thyroxine 1.52 ng/dL (0.86-1.85) Free Triiodothyronine 2.5 pg/mL (2.3-4.2) Cortisol Pending Neurologic Exam Objective PHYSICAL EXAMINATION: GENERAL: She is a well-developed, well-nourished, slightly obese, black lady, sitting up in a chair, in no acute distress. HEAD: Normocephalic and atraumatic. EENT: Examination benign. NECK: No neck rigidity was observed. NEUROLOGICAL EXAMINATION: MENTAL STATUS EXAMINATION: She was alert and awake. She was oriented to person, place, and time except for the exact date. She was able to recall 3/3 words immediately, but could only remember 2/3 words in 1 minute and 3 minutes.. She was able to remember presidents Trump and Obama, but could not remember presidents prior to that. Her mathematical skills were impaired. Her visuospatial function was also impaired. SPEECH: She had no dysarthria. LANGUAGE: She had anomia for low-frequency words. CRANIAL NERVE EXAMINATION: II: The visual yusuf were intact to confrontation testing. III, IV & : External ocular movements were full and the pupils 3 mm in diameter, equal, round, regular, and reactive to light. V: She had normal facial sensations and the temporales, masseters, and pterygoids functioned normally. VII: She had normal facial expressions and no facial asymmetry. VIII: She was able to hear well bilaterally and had no nystagmus. IX: The palate moved symmetrically on phonation. X: She had no hoarseness of voice. XI: The sternocleidomastoids and trapezii functioned normally. XII: The tongue was in the midline without any fasciculations or atrophy. MOTOR SYSTEM: The tone was normal in all four extremities. Examination of muscle mass revealed no focal wasting. Examination of power revealed grade 5/5 power in all muscle groups tested except for both shoulders where the motion was limited by pain. She also had grade 5-/5 power in the left finger extensors and iliopsoas. SENSORY EXAMINATION: She had intact sensations to pinprick, light touch, and graphesthesia. COORDINATION: She performed well on [id number] and [id number] testing. REFLEXES: Trace+ and bilaterally symmetrical at the biceps, triceps, brachioradialis, and knees. 0 at both ankles. The plantar responses were flexor bilaterally. STANCE: She stood up with support. GAIT: She walked with support with mildly left paretic gait. She was steadier on her feet. Impression/Recommendations Diagnostic Impression 1. Ms. Gayatri Urbano is an 81-year-old, right-handed, black lady, who does have a past history of hypertension, dyslipidemia, hypothyroidism, coronary artery disease - status post percutaneous intervention and stent placement, stroke associated with left hemiparesis, and arthritis involving multiple joints, who a few months ago started to have periods where she felt tired but had generalized body aches and would feel unwell. This was worked up when she was in [place] with no definite diagnosis. She then moved back to [place] and felt well for some time, but then 3 weeks ago, she started to have the same symptoms. 2. She feels much better today with less malaise and less body pain. 3. On neurological examination, at this time, she does have mild problems with orientation, recent and remote memory, visuospatial function, higher cognitive function and language. She also has decreased shoulder movements due to pain and arthritis involving the joints, a mild left paresis involving the face and upper and lower extremities, and globally diminished deep tendon reflexes. She walks with mildly left paretic gait. 4. Laboratory data on my initial evaluation revealed that she was anemic with hemoglobin of 10.0. The chemistry panel revealed a creatinine elevated to 1.7. The CK was elevated to 258. Her total protein was down at 6.2. Her TSH, T3, and T4 were within normal range. Her urinalysis was benign. 5 At this point in time, it is unclear as to what is causing the patient's generalized body aches and pains, malaise, and feeling of being ill. It is unclear if the problem that she has represents a rheumatological problem or myopathic problem. She also is demonstrating signs of cognitive dysfunction. 6. She is generally better today. Recommendations 1. Continue present management. 2. Await complete work up for treatable causes of malaise, muscle pain, and cognitive decline. 3. It may be worth getting a rheumatological evaluation to determine if she has connective tissue disorder that could be causing her symptoms. 4. The patient was encouraged to stay as active as possible. Martell Mojica M.D., M.S.P.H. MARTELL MOJICA Sep 22, 2016 14:50
[2016-09-22 16:00] VITALS: BP 138/85
[2016-09-22] MEDS: Memantine 5 MG TAB ORAL SCH (17:42)
--- NOTE | 2016-09-22 19:35 | Cardiology Progress Note ---
Assessment/Plan Assessment/Plan toxic metablic encephalopathy abd pain nausea chronic chhough hyponatermia ? 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 like to send home soon if varghese bm Subjective Cardiovascular: Denies: chest pain, lightheadedness Respiratory: Denies: shortness of breath Gastrointestinal/Abdominal: Reports: constipated Genitourinary: Denies: burning Objective Last 24 Hour Vital Signs Date Time Temp Pulse Resp B/P Pulse Ox O2 Delivery O2 Flow Rate FiO2 09/22/16 17:00 64 64 92 09/22/16 16:00 98.2 68 20 138/85 98 Room Air 09/22/16 12:05 97.5 09/22/16 12:00 98.0 63 22 151/74 99 Room Air 09/22/16 09:00 63 61 91 09/22/16 08:31 143/56 09/22/16 08:13 97.5 63 20 143/56 99 Room Air 09/22/16 03:42 98.0 73 18 154/77 96 Room Air 09/22/16 01:00 74 70 76 09/22/16 00:00 98.1 74 18 135/64 98 Room Air 09/21/16 20:03 89 140/75 09/21/16 20:00 98.4 76 22 167/86 96 Room Air General Appearance: no apparent distress, alert Neck: supple Cardiovascular: normal rate, regular rhythm, regularly irregular Respiratory/Chest: lungs clear, normal breath sounds Abdomen: normal bowel sounds, non tender, soft Extremities: no swelling Intake and Output 09/21/16 09/22/16 19:00 07:00 Intake Total 442 ml 1230 ml Output Total 600 ml Balance 442 ml 630 ml Intake Oral 242 ml 780 ml IV Total 200 ml 450 ml Output Urine Total 600 ml # Voids 1 8 Laboratory Tests Test 09/21/16 22:00 09/22/16 02:45 09/22/16 05:40 Stool Occult Blood Negative (NEGATIVE) Urine Color Yellow Urine Appearance Clear Urine pH 7 (4.5-8.0) Urine Specific [place] 1.005 (1.005-1.035) Urine Protein Negative (NEGATIVE) Urine Glucose (UA) Negative (NEGATIVE) Urine Ketones Negative (NEGATIVE) Urine Occult Blood Negative (NEGATIVE) Urine Nitrite Negative (NEGATIVE) Urine Bilirubin Negative (NEGATIVE) Urine Urobilinogen Normal MG/DL (0.0-1.0) Urine Leukocyte Esterase Negative (NEGATIVE) Urine RBC 0-2 /HPF (0 - 2) Urine WBC 0-2 /HPF (0 - 2) Urine Squamous Epithelial Cells Occasional /LPF Urine Bacteria Occasional /HPF (NONE) Urine Eosinophils None seen Urine Osmolality Pending Urine Random Sodium 116 mmol/L Urine Random Chloride 105 mmol/L Urine Potassium Timed 11 mmol/L White Blood Count 6.2 K/UL (4.8-10.8) Red Blood Count 3.27 M/UL (4.20-5.40) L Hemoglobin 10.0 G/DL (12.0-16.0) L Hematocrit 30.9 % (37.0-47.0) L Mean Corpuscular Volume 95 FL (80-99) Mean Corpuscular Hemoglobin 30.5 PG (27.0-31.0) Mean Corpuscular Hemoglobin Concent 32.2 G/DL (32.0-36.0) Red Cell Distribution Width 13.5 % (11.6-14.8) Platelet Count 294 K/UL (150-450) Mean Platelet Volume 6.7 FL (6.5-10.1) Neutrophils (%) (Auto) % (45.0-75.0) Lymphocytes (%) (Auto) % (20.0-45.0) Monocytes (%) (Auto) % (1.0-10.0) Eosinophils (%) (Auto) % (0.0-3.0) Basophils (%) (Auto) % (0.0-2.0) Differential Total Cells Counted 100 Neutrophils % (Manual) 67 % (45-75) Lymphocytes % (Manual) 29 % (20-45) Monocytes % (Manual) 4 % (1-10) Eosinophils % (Manual) 0 % (0-3) Basophils % (Manual) 0 % (0-2) Band Neutrophils 0 % (0-8) Platelet Estimate Adequate Platelet Morphology Normal Hypochromasia 1+ Erythrocyte Sedimentation Rate 10 MM/HR (0-42) Reticulocyte Count 0.9 % (0.0-2.0) Prothrombin Time 10.1 SEC (9.30-11.50) Prothromb Time International Ratio 1.0 (0.9-1.1) Activated Partial Thromboplast Time 28 SEC (23-33) Sodium Level 137 mEQ/L (135-145) Potassium Level 3.9 mEQ/L (3.4-4.9) Chloride Level 96 mEQ/L (98-107) L Carbon Dioxide Level 27 mEQ/L (20-30) Anion Gap 14 (5-15) Blood Urea Nitrogen 11 mg/dL (7-23) Creatinine 1.3 mg/dL (0.5-0.9) H Estimat Glomerular Filtration Rate mL/min (>60) Glucose Level 115 mg/dL (74-106) H Plasma/Serum Osmolality Pending Uric Acid 6.1 mg/dL (3.0-7.5) Calcium Level 9.5 mg/dL (8.6-10.2) Magnesium Level 2.2 mg/dL (1.7-2.5) Total Bilirubin 0.5 mg/dL (0.0-1.2) Aspartate Amino Transf (AST/SGOT) 20 U/L (5-40) Alanine Aminotransferase (ALT/SGPT) 18 U/L (3-33) Alkaline Phosphatase 50 U/L (35-104) Lactate Dehydrogenase 251 U/L (135-230) H Total Creatine Kinase 90 U/L (26-140) Total Protein 5.8 g/dL (6.6-8.7) L Albumin 3.7 g/dL (3.5-5.2) Globulin 2.1 g/dL Albumin/Globulin Ratio 1.7 (1.0-2.7) Thyroid Stimulating Hormone (TSH) 0.674 uIU/mL (0.300-4.500) Free Thyroxine 1.52 ng/dL (0.86-1.85) Free Triiodothyronine 2.5 pg/mL (2.3-4.2) Cortisol Pending Microbiology Date/Time Source Procedure Growth Status 09/19/16 23:18 Nasal Nares Influenza Types A,B Antigen (MARIA LUISA) - Final Complete ARNULFO VIDALES Sep 22, 2016 19:35
[2016-09-22 20:00] VITALS: BP 156/79
[2016-09-22] MEDS ORDERED: Lactulose 10gm/15ml UDC ORAL ONE (20:00)
[2016-09-22] MEDS ORDERED: Fleet's Enema 133ml RECTAL ONE (20:00)
[2016-09-22] MEDS: ALPRAZolam 0.5mg tab ORAL SCH (20:11)
[2016-09-22] MEDS: TraZODone 50mg tab ORAL PRN (23:31)
[2016-09-23] VITALS: BP 173/90
[2016-09-23 04:00] VITALS: BP 135/77
[2016-09-23 08:00] VITALS: BP 135/70
[2016-09-23 08:08] LABS: CORTISOL LC 11.5 ug/dL (.)
[2016-09-23 08:29] LABS: BASOPHILS % (AUTO) 0.8 % (0.0-2.0); EOSINOPHILS % (AUTO) 2.2 % (0.0-3.0); LYMPHOCYTES % (AUTO) 24.7 % (20.0-45.0); MEAN CORPUSCULAR HGB CONC 32.6 G/DL (32.0-36.0); MEAN CORPUSCULAR VOLUME 95 FL (80-99); MEAN PLATELET VOLUME 6.5 FL (6.5-10.1); NEUTROPHILS % (AUTO) 62.3 % (45.0-75.0); PLATELET COUNT 324 K/UL (150-450); RED BLOOD COUNT 3.43 M/UL (4.20-5.40); RED CELL DISTRIBUTION WIDTH 13.6 % (11.6-14.8); WHITE BLOOD COUNT 6.7 K/UL (4.8-10.8)
[2016-09-23 08:59] LABS: ANION GAP 12 (5-15); CALCIUM 9.4 mg/dL (8.6-10.2); CARBON DIOXIDE 28 mEQ/L (20-30); CHLORIDE 96 mEQ/L (98-107); CREATININE 1.5 mg/dL (0.5-0.9); HEMOLYSIS 9; POTASSIUM 3.4 mEQ/L (3.4-4.9); SODIUM 136 mEQ/L (135-145)
[2016-09-23] MEDS: Irbesartan 150mg tablet ORAL SCH (09:00)
[2016-09-23] MEDS: Sertraline 50mg tab ORAL SCH (09:01)
[2016-09-23] MEDS: Memantine 5 MG TAB ORAL SCH ×2 (09:01→18:36)
[2016-09-23] MEDS: Benzonatate 100mg Perles ORAL SCH ×3 (09:01→18:37)
[2016-09-23] MEDS: Magnesium Oxide 400mg tab ORAL SCH ×2 (09:01→18:36)
[2016-09-23] MEDS: Aspirin EC 81mg tab ORAL SCH (09:01)
[2016-09-23] MEDS: Heparin 5000 units/ml inj SUBQ SCH ×2 (09:02→20:25)
[2016-09-23 12:00] VITALS: BP 107/60
--- NOTE | 2016-09-23 12:15 | General Progress Note ---
Assessment/Plan Problem List: (1) Hypertension ICD Codes: I10 - Essential (primary) hypertension SNOMED: 03413326 (2) Abdominal pain ICD Codes: R10.9 - Unspecified abdominal pain SNOMED: 97662431 (3) Anemia ICD Codes: D64.9 - Anemia, unspecified SNOMED: 484181835 Assessment/Plan abd pain of unknown etiology stable H&H D/W the patient regarding colonoscopy and she agreed plan for EGD and colonoscopy on Sunday Subjective ROS Limited/Unobtainable: Yes Allergies: Coded Allergies: No Known Allergies (Verified , 04/23/15) Subjective feeling better Objective Last 24 Hour Vital Signs Date Time Temp Pulse Resp B/P Pulse Ox O2 Delivery O2 Flow Rate FiO2 09/23/16 09:00 135/70 09/23/16 08:00 97.7 65 18 135/70 98 Room Air 09/23/16 04:00 55 65 88 09/23/16 04:00 97.3 65 20 135/77 97 Room Air 09/23/16 00:30 97.7 09/23/16 00:00 97.7 64 20 173/90 97 Room Air 09/22/16 20:11 66 156/79 09/22/16 20:00 97.0 66 20 156/79 95 Room Air 09/22/16 17:00 64 64 92 09/22/16 16:00 98.2 68 20 138/85 98 Room Air Intake and Output 09/22/16 09/23/16 19:00 07:00 Intake Total 480 ml 360 ml Balance 480 ml 360 ml Intake Oral 480 ml 360 ml # Voids 3 # Bowel Movements 2 Laboratory Tests 09/23/16 08:10: White Blood Count 6.7, Red Blood Count 3.43L, Hemoglobin 10.6L, Hematocrit 32.6L , Mean Corpuscular Volume 95, Mean Corpuscular Hemoglobin 31.0, Mean Corpuscular Hemoglobin Concent 32.6, Red Cell Distribution Width 13.6, Platelet Count 324, Mean Platelet Volume 6.5, Neutrophils (%) (Auto) 62.3, Lymphocytes (% ) (Auto) 24.7, Monocytes (%) (Auto) 10.0, Eosinophils (%) (Auto) 2.2, Basophils (%) (Auto) 0.8, Sodium Level 136, Potassium Level 3.4, Chloride Level 96L, Carbon Dioxide Level 28, Anion Gap 12, Blood Urea Nitrogen 11, Creatinine 1.5H, Estimat Glomerular Filtration Rate , Glucose Level 96, Calcium Level 9.4 Height (Feet): 5 Height (Inches): 3.00 Weight (Pounds): 169 General Appearance: alert EENT: normal ENT inspection Neck: supple Cardiovascular: normal rate Respiratory/Chest: decreased breath sounds Abdomen: normal bowel sounds, non tender, soft Extremities: non-tender Objective Procedure: CT Abdomen Pelvis WO Contrast Indication: Abdominal pain x1 month Technique: Spiral acquisitions obtained through the abdomen and pelvis. No oral contrast utilized, per emergency room physician request No IV contrast utilized, per referring physician request.. Multiplanar reconstructions were generated. Total dose length product 829 mGycm. CTDIvol(s) 18 mGy Comparison: 09/06/2011 contrast study Findings: The appendix is not clearly identified, but there are no findings to suggest acute appendicitis. No evidence of diverticulosis or diverticulitis. No small bowel distention. No free or loculated intraperitoneal air or fluid is evident. There is a fusiform infrarenal abdominal aortic aneurysm, measuring 31 mm maximal diameter. This is also reported previously. No evidence of leakage or rupture. There is also ectasia of the bilateral common iliac arteries, particularly the right. Likely contrast limits assessment of the solid organs. The gallbladder is surgically absent. The liver demonstrates scattered punctate calcifications. There is ectasia of the extrahepatic bile ducts, common bile duct measuring approximately 8 mm diameter. No downstream obstructive lesion demonstrated. The pancreas is unremarkable. Calcifications are again demonstrated within the spleen. The adrenals and kidneys are unremarkable. No mesenteric or retroperitoneal mass or adenopathy. No pelvic mass or adenopathy. The uterus is absent, presumably surgically. The included lung bases demonstrate minimal dependent atelectatic changes. The heart is enlarged. The bones demonstrate marked degenerative spondylosis changes. There are anterior wedge compression fracture deformities of T9 and T10. These were not demonstrated on the prior study Impression: No definite acute process 31 mm fusiform infrarenal abdominal aortic aneurysm, also reported previously, stable. No evidence of leakage or rupture Evidence of old granulomatous disease within the liver and spleen T9 and T10 compression fracture deformities. New since 09/06/2011, acuity otherwise indeterminate although suspect not acute. Consider MRI for further correlation if this is considered clinically relevant. Ectatic extrahepatic bile ducts, probably related to age and postcholecystectomy state. Downstream obstruction not completely excludable, however. Recommend correlation with liver function tests Cardiomegaly Other findings as noted, including degenerative spondylosis, evidence of prior hysterectomy, evidence of prior cholecystectomy, dependent pulmonary parenchymal atelectasis This agrees with the preliminary interpretation provided overnight by [facility] teleradiology service. The CT scanner at [facility] is accredited by the [employer] and the scans are performed using protocols designed to limit radiation exposure to as low as reasonably achievable to attain images of sufficient resolution adequate for diagnostic evaluation. Dictated By: BOUBACAR LAGUERRE M.D. Electronically Signed By: BOUBACAR LAGUERRE M.D. Signed Date/Time 09/20/16 0930 RAMIREZ WHITE Sep 23, 2016 12:15
--- NOTE | 2016-09-23 12:29 | Pulmonology Progress Note ---
Assessment/Plan Assessment/Plan ASSESSMENT generalized weakness dehydration chronic cough abdominal pain anemia of chronic disease hyponatremia -resolved ATN on CRI - improved hypothyroidism fibromyalgia ? myopathy PLAN OF CARE MS floor gentle IVF creat up to 1.5 today renal US pending likely ATN 2 to dehydration Na up to normal, likely depletional CXR negative for any acute cardiopulmonary disease no wheezing, no hemoptysis O2 HHN prn antitussive prn trial of Tessalon pearls confine ASA, Plavix BP management with ARB and BB neuro follows CT head no acute intracranial pathology but evidence of old R frontal CVA DVT, GI prophylaxis GI follows pain management CT A/P noted elevated CEA , normal Ca 19-9 , stable LFT, lipase consider GI procedure - per GI discretion monitor HH, transfuse prn stool OB pending, adermia workup with stable iron, B 12 and folate SPEP pending thyroid panel stable, continue current dose of levothyroxine PT/OT case discussed and evaluated by supervising physician Subjective Allergies: Coded Allergies: No Known Allergies (Verified , 04/23/15) Subjective anemic, no SOB, no chest pain + cough, dry, non productive, no wheezing, no hemoptysis on RA sat stable, no signs of respiratory distress Objective Last 24 Hour Vital Signs Date Time Temp Pulse Resp B/P Pulse Ox O2 Delivery O2 Flow Rate FiO2 09/23/16 09:00 135/70 09/23/16 08:00 97.7 65 18 135/70 98 Room Air 09/23/16 04:00 55 65 88 09/23/16 04:00 97.3 65 20 135/77 97 Room Air 09/23/16 00:30 97.7 09/23/16 00:00 97.7 64 20 173/90 97 Room Air 09/22/16 20:11 66 156/79 09/22/16 20:00 97.0 66 20 156/79 95 Room Air 09/22/16 17:00 64 64 92 09/22/16 16:00 98.2 68 20 138/85 98 Room Air Intake and Output 09/22/16 09/23/16 19:00 07:00 Intake Total 480 ml 360 ml Balance 480 ml 360 ml Intake Oral 480 ml 360 ml # Voids 3 # Bowel Movements 2 Objective General Appearance: no acute distress, other - awake, alert, oriented AA female in NAD HEENT: normocephalic, atraumatic, anicteric, mucous membranes moist Respiratory/Chest: lungs clear, no respiratory distress, no accessory muscle use Cardiovascular: normal peripheral pulses, normal rate, regular rhythm, no JVD Abdomen: normal bowel sounds, soft, non tender, non distended Genitourinary: normal external genitalia Extremities: no edema, pedal pulses normal Neurologic/Psychiatric: alert, responsive Musculoskeletal: atrophy - BLE Laboratory Tests 09/23/16 08:10: White Blood Count 6.7, Red Blood Count 3.43L, Hemoglobin 10.6L, Hematocrit 32.6L , Mean Corpuscular Volume 95, Mean Corpuscular Hemoglobin 31.0, Mean Corpuscular Hemoglobin Concent 32.6, Red Cell Distribution Width 13.6, Platelet Count 324, Mean Platelet Volume 6.5, Neutrophils (%) (Auto) 62.3, Lymphocytes (% ) (Auto) 24.7, Monocytes (%) (Auto) 10.0, Eosinophils (%) (Auto) 2.2, Basophils (%) (Auto) 0.8, Sodium Level 136, Potassium Level 3.4, Chloride Level 96L, Carbon Dioxide Level 28, Anion Gap 12, Blood Urea Nitrogen 11, Creatinine 1.5H, Estimat Glomerular Filtration Rate , Glucose Level 96, Calcium Level 9.4 Current Medications Medications (Trade) Dose Ordered Sig/Laura Route PRN Reason Start Time Stop Time Status Last Admin Dose Admin Acetaminophen (Tylenol) 650 mg Q6H PRN ORAL Mild Pain/Temp > 100.5 09/20/16 11:15 10/20/16 11:14 09/22/16 23:31 Alprazolam (Xanax) 0.5 mg BEDTIME ORAL 09/21/16 00:15 09/28/16 00:14 09/22/16 20:11 Aspirin (Ecotrin) 81 mg DAILY ORAL 09/20/16 09:00 10/20/16 08:59 09/23/16 09:01 Benzonatate (Tessalon Perles) 100 mg THREE TIMES A DAY ORAL 09/22/16 13:00 10/22/16 12:59 09/23/16 09:01 Clopidogrel Bisulfate (Plavix) 75 mg DAILY ORAL 09/20/16 09:00 10/20/16 08:59 09/23/16 09:01 Diphenhydramine HCl (Benadryl) 25 mg Q6H PRN ORAL Itching 09/21/16 17:45 10/21/16 17:44 Heparin Sodium (Porcine) (Heparin 5000 units/ml) 5,000 units EVERY 12 HOURS SUBQ 09/20/16 09:00 10/20/16 08:59 09/23/16 09:02 Irbesartan (Avapro) 150 mg DAILY ORAL 09/20/16 09:00 10/20/16 08:59 09/23/16 09:00 Levothyroxine Sodium (Synthroid) 50 mcg ACBREAKFAST ORAL 09/20/16 06:30 10/20/16 06:29 09/23/16 07:42 Magnesium Hydroxide (Mom) 30 ml TIDPRN PRN ORAL Constipation 09/21/16 17:45 10/21/16 17:44 09/21/16 17:39 Magnesium Oxide (Mag-Ox 400mg) 400 mg BID ORAL 09/21/16 18:00 09/24/16 17:59 09/23/16 09:01 Memantine (Namenda) 5 mg BID ORAL 09/22/16 18:00 10/22/16 17:59 09/23/16 09:01 Metoprolol Succinate (Toprol XL) 25 mg BEDTIME ORAL 09/20/16 21:00 10/20/16 20:59 09/22/16 20:11 Ondansetron HCl (Zofran) 4 mg Q6H PRN ORAL Nausea & Vomiting 09/20/16 01:30 10/20/16 01:29 09/22/16 19:34 Pantoprazole (Protonix) 40 mg DAILY ORAL 09/20/16 09:00 10/20/16 08:59 09/23/16 09:02 Sertraline HCl (Zoloft) 50 mg DAILY ORAL 09/23/16 09:00 10/23/16 08:59 09/23/16 09:01 Sodium Phosphate (Fleet's Sodium Phosl Enema) 133 ml DAILY PRN RECTAL Constipation 09/21/16 20:00 10/21/16 19:59 09/21/16 21:44 Trazodone HCl (Desyrel) 50 mg BEDTIME PRN ORAL insomnia 09/21/16 19:45 10/21/16 19:44 09/22/16 23:31 Ben ([facility])Patricia NP Sep 23, 2016 12:29
[2016-09-23] MEDS ORDERED: D5 1/2NS 1000ml IV ONE (14:10)
--- NOTE | 2016-09-23 14:12 | Neurology Progress Note ---
Interim History Interim History Interim History Ms. Urbano feels better. She is sitting up at the edge of her bed. The mind is clearer. The fatigue is better. The generalized body pain is also better. She has been able to walk better. She denies any new neurologic symptoms. Review of Systems Neuro Review of Systems Benign. Objective Physical Exam Last Vital Signs Date Time Temp Pulse Resp B/P Pulse Ox O2 Delivery O2 Flow Rate FiO2 09/23/16 12:00 88 72 86 09/23/16 12:00 97.7 18 107/60 94 Room Air Laboratory Tests Test 09/23/16 08:10 White Blood Count 6.7 K/UL (4.8-10.8) Red Blood Count 3.43 M/UL (4.20-5.40) L Hemoglobin 10.6 G/DL (12.0-16.0) L Hematocrit 32.6 % (37.0-47.0) L Mean Corpuscular Volume 95 FL (80-99) Mean Corpuscular Hemoglobin 31.0 PG (27.0-31.0) Mean Corpuscular Hemoglobin Concent 32.6 G/DL (32.0-36.0) Red Cell Distribution Width 13.6 % (11.6-14.8) Platelet Count 324 K/UL (150-450) Mean Platelet Volume 6.5 FL (6.5-10.1) Neutrophils (%) (Auto) 62.3 % (45.0-75.0) Lymphocytes (%) (Auto) 24.7 % (20.0-45.0) Monocytes (%) (Auto) 10.0 % (1.0-10.0) Eosinophils (%) (Auto) 2.2 % (0.0-3.0) Basophils (%) (Auto) 0.8 % (0.0-2.0) Sodium Level 136 mEQ/L (135-145) Potassium Level 3.4 mEQ/L (3.4-4.9) Chloride Level 96 mEQ/L (98-107) L Carbon Dioxide Level 28 mEQ/L (20-30) Anion Gap 12 (5-15) Blood Urea Nitrogen 11 mg/dL (7-23) Creatinine 1.5 mg/dL (0.5-0.9) H Estimat Glomerular Filtration Rate mL/min (>60) Glucose Level 96 mg/dL (74-106) Calcium Level 9.4 mg/dL (8.6-10.2) Neurologic Exam Objective PHYSICAL EXAMINATION: GENERAL: She is a well-developed, well-nourished, slightly obese, black lady, sitting up at the edge of her bed, in no acute distress. HEAD: Normocephalic and atraumatic. EENT: Examination benign. NECK: No neck rigidity was observed. NEUROLOGICAL EXAMINATION: MENTAL STATUS EXAMINATION: She was alert and awake. She was oriented to person, place, and time except for the exact date. She was able to recall 3/3 words immediately, but could only remember 2/3 words in 1 minute and 3 minutes.. She was able to remember presidents Trump and Obama, but could not remember presidents prior to that. Her mathematical skills were impaired. Her visuospatial function was also impaired. SPEECH: She had no dysarthria. LANGUAGE: She had anomia for low-frequency words. CRANIAL NERVE EXAMINATION: II: The visual yusuf were intact to confrontation testing. III, IV & : External ocular movements were full and the pupils 3 mm in diameter, equal, round, regular, and reactive to light. V: She had normal facial sensations and the temporales, masseters, and pterygoids functioned normally. VII: She had normal facial expressions and no facial asymmetry. VIII: She was able to hear well bilaterally and had no nystagmus. IX: The palate moved symmetrically on phonation. X: She had no hoarseness of voice. XI: The sternocleidomastoids and trapezii functioned normally. XII: The tongue was in the midline without any fasciculations or atrophy. MOTOR SYSTEM: The tone was normal in all four extremities. Examination of muscle mass revealed no focal wasting. Examination of power revealed grade 5/5 power in all muscle groups tested except for both shoulders where the motion was limited by pain. She also had grade 5-/5 power in the left finger extensors and iliopsoas. SENSORY EXAMINATION: She had intact sensations to pinprick, light touch, and graphesthesia. COORDINATION: She performed well on yhmwkm-rc-lads and kczv-hz-vgih testing. REFLEXES: Trace+ and bilaterally symmetrical at the biceps, triceps, brachioradialis, and knees. 0 at both ankles. The plantar responses were flexor bilaterally. STANCE: She stood up with support. GAIT: She walked with support with mildly left paretic gait. She was steadier on her feet. Impression/Recommendations Diagnostic Impression 1. Ms. Gayatri Urbano is an 81-year-old, right-handed, black lady, who does have a past history of hypertension, dyslipidemia, hypothyroidism, coronary artery disease - status post percutaneous intervention and stent placement, stroke associated with left hemiparesis, and arthritis involving multiple joints, who a few months ago started to have periods where she felt tired but had generalized body aches and would feel unwell. This was worked up when she was in [place] with no definite diagnosis. She then moved back to [place] and felt well for some time, but then 3 weeks ago, she started to have the same symptoms. 2. She continues to feel much better with less malaise and less body pain. 3. On neurological examination, at this time, she does have mild problems with orientation, recent and remote memory, visuospatial function, higher cognitive function and language. She also has decreased shoulder movements due to pain and arthritis involving the joints, a mild left paresis involving the face and upper and lower extremities, and globally diminished deep tendon reflexes. She walks with mildly left paretic gait. 4. Laboratory data on my initial evaluation revealed that she was anemic with hemoglobin of 10.0. The chemistry panel revealed a creatinine elevated to 1.7. The CK was elevated to 258. Her total protein was down at 6.2. Her TSH, T3, and T4 were within normal range. Her urinalysis was benign. 5 At this point in time, it is unclear as to what is causing the patient's generalized body aches and pains, malaise, and feeling of being ill. It is unclear if the problem that she has represents a rheumatological problem or myopathic problem. She also is demonstrating signs of cognitive dysfunction. 6. She is improving generally. Recommendations 1. Continue present management. 2. Await complete work up for treatable causes of malaise, muscle pain, and cognitive decline. 3. The patient was encouraged to stay as active as possible. Martell Mojica M.D., M.S.MARTELL SOLARES Sep 23, 2016 14:12
[2016-09-23 16:00] VITALS: BP 117/65
[2016-09-23 18:08] LABS: ALDOLASE 4.8 U/L (3.3-10.3); VITAMIN D 25-OH TOTAL 39 ng/mL (.)
--- NOTE | 2016-09-23 18:32 | Cardiology Progress Note ---
Assessment/Plan Assessment/Plan improving mental status hypokalemia, replace Subjective Subjective the patient is earint dinner good appeatie she has mild pain her mentation is better Objective Last 24 Hour Vital Signs Date Time Temp Pulse Resp B/P Pulse Ox O2 Delivery O2 Flow Rate FiO2 09/23/16 16:00 97.5 67 20 117/65 99 Room Air 09/23/16 12:00 88 72 86 09/23/16 12:00 97.7 72 18 107/60 94 Room Air 09/23/16 09:00 88 72 86 09/23/16 09:00 88 72 86 09/23/16 09:00 135/70 09/23/16 08:00 97.7 65 18 135/70 98 Room Air 09/23/16 04:00 55 65 88 09/23/16 04:00 97.3 65 20 135/77 97 Room Air 09/23/16 00:30 97.7 09/23/16 00:00 97.7 64 20 173/90 97 Room Air 09/22/16 20:11 66 156/79 09/22/16 20:00 97.0 66 20 156/79 95 Room Air General Appearance: other EENT: PERRL/EOMI Neck: supple, limited range of motion Rhythm: NSR Cardiovascular: normal rate Respiratory/Chest: lungs clear Abdomen: soft, decreased bowel sounds Extremities: no swelling Intake and Output 09/22/16 09/23/16 19:00 07:00 Intake Total 480 ml 360 ml Balance 480 ml 360 ml Intake Oral 480 ml 360 ml # Voids 3 # Bowel Movements 2 Laboratory Tests Test 09/23/16 08:10 White Blood Count 6.7 K/UL (4.8-10.8) Red Blood Count 3.43 M/UL (4.20-5.40) L Hemoglobin 10.6 G/DL (12.0-16.0) L Hematocrit 32.6 % (37.0-47.0) L Mean Corpuscular Volume 95 FL (80-99) Mean Corpuscular Hemoglobin 31.0 PG (27.0-31.0) Mean Corpuscular Hemoglobin Concent 32.6 G/DL (32.0-36.0) Red Cell Distribution Width 13.6 % (11.6-14.8) Platelet Count 324 K/UL (150-450) Mean Platelet Volume 6.5 FL (6.5-10.1) Neutrophils (%) (Auto) 62.3 % (45.0-75.0) Lymphocytes (%) (Auto) 24.7 % (20.0-45.0) Monocytes (%) (Auto) 10.0 % (1.0-10.0) Eosinophils (%) (Auto) 2.2 % (0.0-3.0) Basophils (%) (Auto) 0.8 % (0.0-2.0) Sodium Level 136 mEQ/L (135-145) Potassium Level 3.4 mEQ/L (3.4-4.9) Chloride Level 96 mEQ/L (98-107) L Carbon Dioxide Level 28 mEQ/L (20-30) Anion Gap 12 (5-15) Blood Urea Nitrogen 11 mg/dL (7-23) Creatinine 1.5 mg/dL (0.5-0.9) H Estimat Glomerular Filtration Rate mL/min (>60) Glucose Level 96 mg/dL (74-106) Calcium Level 9.4 mg/dL (8.6-10.2) GURDEEP LOZANO Sep 23, 2016 18:32
[2016-09-23 19:00] VITALS: BP 112/63
[2016-09-23] MEDS ORDERED: KCl 10% 40mEq/30ml liquid NG ONE (19:00)
[2016-09-23] MEDS: ALPRAZolam 0.5mg tab ORAL SCH (20:24)
[2016-09-23] MEDS: TraZODone 50mg tab ORAL PRN (21:23)
[2016-09-24 07:31] LABS: EOSINOPHILS % (AUTO) 2.2 % (0.0-3.0); LYMPHOCYTES % (AUTO) 32.8 % (20.0-45.0); MEAN CORPUSCULAR HGB CONC 32.3 G/DL (32.0-36.0); MEAN CORPUSCULAR VOLUME 96 FL (80-99); MEAN PLATELET VOLUME 6.6 FL (6.5-10.1); MONOCYTES % (AUTO) 10.7 % (1.0-10.0); NEUTROPHILS % (AUTO) 53.3 % (45.0-75.0); PLATELET COUNT 293 K/UL (150-450); RED BLOOD COUNT 3.34 M/UL (4.20-5.40); RED CELL DISTRIBUTION WIDTH 13.8 % (11.6-14.8); WHITE BLOOD COUNT 7.1 K/UL (4.8-10.8)
[2016-09-24 07:48] LABS: ANION GAP 13 (5-15); CALCIUM 9.5 mg/dL (8.6-10.2); CARBON DIOXIDE 28 mEQ/L (20-30); CHLORIDE 94 mEQ/L (98-107); CREATININE 1.7 mg/dL (0.5-0.9); HEMOLYSIS 7; POTASSIUM 4.3 mEQ/L (3.4-4.9); SODIUM 135 mEQ/L (135-145)
[2016-09-24 08:00] VITALS: BP 140/63
[2016-09-24] MEDS: Memantine 5 MG TAB ORAL SCH ×2 (09:00→17:41)
[2016-09-24] MEDS: Heparin 5000 units/ml inj SUBQ SCH ×2 (09:00→20:06)
[2016-09-24] MEDS: Aspirin EC 81mg tab ORAL SCH (09:37)
[2016-09-24] MEDS: Sertraline 50mg tab ORAL SCH (09:38)
[2016-09-24] MEDS: Benzonatate 100mg Perles ORAL SCH ×3 (09:38→17:41)
[2016-09-24] MEDS: Magnesium Oxide 400mg tab ORAL SCH (09:38)
[2016-09-24] MEDS: Irbesartan 150mg tablet ORAL SCH (09:38)
[2016-09-24 12:00] VITALS: BP 137/56
--- NOTE | 2016-09-24 13:51 | Pulmonology Progress Note ---
Assessment/Plan Assessment/Plan ASSESSMENT generalized weakness dehydration chronic cough abdominal pain of unknown etiology anemia of chronic disease hyponatremia -resolved ATN on CRI - improved hypothyroidism fibromyalgia ? myopathy PLAN OF CARE MS floor gentle IVF creat up to 1.7 today renal US pending likely ATN 2 to dehydration Na up to normal, likely depletional CXR negative for any acute cardiopulmonary disease no wheezing, no hemoptysis O2 HHN prn antitussive prn trial of Tessalon pearls confine ASA, Plavix BP management with ARB and BB neuro follows CT head no acute intracranial pathology but evidence of old R frontal CVA DVT, GI prophylaxis GI follows EGD and colon in am, patient agreed prep as ordered by GI pain management CT A/P noted elevated CEA , normal Ca 19-9 , stable LFT, lipase, consider GI procedure - per GI discretion monitor HH, transfuse prn stool OB negative anemia workup with stable iron, B 12 and folate SPEP pending thyroid panel stable, continue current dose of levothyroxine PT/OT case discussed and evaluated by supervising physician Subjective Allergies: Coded Allergies: No Known Allergies (Verified , 04/23/15) Subjective anemic, no SOB, no chest pain + intermittent cough, dry, non productive, no wheezing, no hemoptysis on RA sat stable, no signs of respiratory distress creat up again to 1.7 reports being hungry on liquid diet ( prep for colonoscopy for am) Objective Last 24 Hour Vital Signs Date Time Temp Pulse Resp B/P Pulse Ox O2 Delivery O2 Flow Rate FiO2 09/24/16 12:00 98.1 55 18 137/56 97 Room Air 09/24/16 09:38 140/63 09/24/16 09:00 57 59 53 09/24/16 08:00 97.9 54 18 140/63 97 Room Air 09/24/16 06:05 58 61 71 09/24/16 01:00 58 61 71 09/23/16 20:24 70 114/60 09/23/16 19:00 98.2 71 20 112/63 96 Room Air 09/23/16 17:00 64 64 92 09/23/16 16:00 97.5 67 20 117/65 99 Room Air Intake and Output 09/23/16 09/24/16 19:00 07:00 Intake Total 480 ml Balance 480 ml Intake Oral 480 ml # Voids 2 1 Objective General Appearance: no acute distress, other - awake, alert, oriented AA female in NAD HEENT: normocephalic, atraumatic, anicteric, mucous membranes moist Respiratory/Chest: lungs clear, no respiratory distress, no accessory muscle use Cardiovascular: normal peripheral pulses, normal rate, regular rhythm, no JVD Abdomen: normal bowel sounds, soft, non tender, non distended Genitourinary: normal external genitalia Extremities: no edema, pedal pulses normal Neurologic/Psychiatric: alert, responsive Musculoskeletal: atrophy - BLE Laboratory Tests 09/24/16 05:35: White Blood Count 7.1, Red Blood Count 3.34L, Hemoglobin 10.3L, Hematocrit 31.9L , Mean Corpuscular Volume 96, Mean Corpuscular Hemoglobin 31.0, Mean Corpuscular Hemoglobin Concent 32.3, Red Cell Distribution Width 13.8, Platelet Count 293, Mean Platelet Volume 6.6, Neutrophils (%) (Auto) 53.3, Lymphocytes (% ) (Auto) 32.8, Monocytes (%) (Auto) 10.7H, Eosinophils (%) (Auto) 2.2, Basophils (%) (Auto) 1.0, Sodium Level 135, Potassium Level 4.3, Chloride Level 94L, Carbon Dioxide Level 28, Anion Gap 13, Blood Urea Nitrogen 16, Creatinine 1.7H, Estimat Glomerular Filtration Rate , Glucose Level 100, Calcium Level 9.5 Current Medications Medications (Trade) Dose Ordered Sig/Laura Route PRN Reason Start Time Stop Time Status Last Admin Dose Admin Acetaminophen (Tylenol) 650 mg Q6H PRN ORAL Mild Pain/Temp > 100.5 09/20/16 11:15 10/20/16 11:14 09/24/16 13:14 Alprazolam (Xanax) 0.5 mg BEDTIME ORAL 09/21/16 00:15 09/28/16 00:14 09/23/16 20:24 Aspirin (Ecotrin) 81 mg DAILY ORAL 09/20/16 09:00 10/20/16 08:59 09/24/16 09:37 Benzonatate (Tessalon Perles) 100 mg THREE TIMES A DAY ORAL 09/22/16 13:00 10/22/16 12:59 09/24/16 09:38 Clopidogrel Bisulfate (Plavix) 75 mg DAILY ORAL 09/20/16 09:00 10/20/16 08:59 09/24/16 09:38 Diphenhydramine HCl (Benadryl) 25 mg Q6H PRN ORAL Itching 09/21/16 17:45 10/21/16 17:44 Heparin Sodium (Porcine) (Heparin 5000 units/ml) 5,000 units EVERY 12 HOURS SUBQ 09/20/16 09:00 10/20/16 08:59 09/23/16 20:25 Irbesartan (Avapro) 150 mg DAILY ORAL 09/20/16 09:00 10/20/16 08:59 09/24/16 09:38 Levothyroxine Sodium (Synthroid) 50 mcg ACBREAKFAST ORAL 09/20/16 06:30 10/20/16 06:29 09/24/16 05:52 Magnesium Hydroxide (Mom) 30 ml TIDPRN PRN ORAL Constipation 09/21/16 17:45 10/21/16 17:44 09/21/16 17:39 Magnesium Oxide (Mag-Ox 400mg) 400 mg BID ORAL 09/21/16 18:00 09/24/16 17:59 09/24/16 09:38 Memantine (Namenda) 5 mg BID ORAL 09/22/16 18:00 10/22/16 17:59 09/24/16 09:00 Metoprolol Succinate (Toprol XL) 25 mg BEDTIME ORAL 09/20/16 21:00 10/20/16 20:59 09/23/16 20:24 Ondansetron HCl (Zofran) 4 mg Q6H PRN ORAL Nausea & Vomiting 09/20/16 01:30 10/20/16 01:29 09/22/16 19:34 Pantoprazole (Protonix) 40 mg DAILY ORAL 09/20/16 09:00 10/20/16 08:59 09/24/16 09:00 Sertraline HCl (Zoloft) 50 mg DAILY ORAL 09/23/16 09:00 10/23/16 08:59 09/24/16 09:38 Sodium Phosphate (Fleet's Sodium Phosl Enema) 133 ml DAILY PRN RECTAL Constipation 09/21/16 20:00 10/21/16 19:59 09/21/16 21:44 Trazodone HCl (Desyrel) 50 mg BEDTIME PRN ORAL insomnia 09/21/16 19:45 10/21/16 19:44 09/23/16 21:23 Ben ([facility])Patricia NP Sep 24, 2016 13:51
--- NOTE | 2016-09-24 14:00 | Neurology Progress Note ---
Interim History Interim History Interim History Ms. Urbano feels better. She is sitting in a chair. The arthritis is "acting up." The mind is clearer. The fatigue is better. The generalized body pain is also better. She has been able to walk better. She denies any new neurologic symptoms. Review of Systems Neuro Review of Systems Benign. Objective Physical Exam Last Vital Signs Date Time Temp Pulse Resp B/P Pulse Ox O2 Delivery O2 Flow Rate FiO2 09/24/16 12:00 98.1 55 18 137/56 97 Room Air Laboratory Tests Test 09/24/16 05:35 White Blood Count 7.1 K/UL (4.8-10.8) Red Blood Count 3.34 M/UL (4.20-5.40) L Hemoglobin 10.3 G/DL (12.0-16.0) L Hematocrit 31.9 % (37.0-47.0) L Mean Corpuscular Volume 96 FL (80-99) Mean Corpuscular Hemoglobin 31.0 PG (27.0-31.0) Mean Corpuscular Hemoglobin Concent 32.3 G/DL (32.0-36.0) Red Cell Distribution Width 13.8 % (11.6-14.8) Platelet Count 293 K/UL (150-450) Mean Platelet Volume 6.6 FL (6.5-10.1) Neutrophils (%) (Auto) 53.3 % (45.0-75.0) Lymphocytes (%) (Auto) 32.8 % (20.0-45.0) Monocytes (%) (Auto) 10.7 % (1.0-10.0) H Eosinophils (%) (Auto) 2.2 % (0.0-3.0) Basophils (%) (Auto) 1.0 % (0.0-2.0) Sodium Level 135 mEQ/L (135-145) Potassium Level 4.3 mEQ/L (3.4-4.9) Chloride Level 94 mEQ/L (98-107) L Carbon Dioxide Level 28 mEQ/L (20-30) Anion Gap 13 (5-15) Blood Urea Nitrogen 16 mg/dL (7-23) Creatinine 1.7 mg/dL (0.5-0.9) H Estimat Glomerular Filtration Rate mL/min (>60) Glucose Level 100 mg/dL (74-106) Calcium Level 9.5 mg/dL (8.6-10.2) Neurologic Exam Objective PHYSICAL EXAMINATION: GENERAL: She is a well-developed, well-nourished, slightly obese, black lady, sitting up in a chair, in no acute distress. HEAD: Normocephalic and atraumatic. EENT: Examination benign. NECK: No neck rigidity was observed. NEUROLOGICAL EXAMINATION: MENTAL STATUS EXAMINATION: She was alert and awake. She was oriented to person, place, and time. She was able to recall 3/3 words immediately, but could only remember 2/3 words in 1 minute and 3 minutes.. She was able to remember presidents Trump and Obama, but could not remember presidents prior to that. Her mathematical skills were impaired. Her visuospatial function was also impaired. SPEECH: She had no dysarthria. LANGUAGE: She had anomia for low-frequency words. CRANIAL NERVE EXAMINATION: II: The visual yusuf were intact to confrontation testing. III, IV & : External ocular movements were full and the pupils 3 mm in diameter, equal, round, regular, and reactive to light. V: She had normal facial sensations and the temporales, masseters, and pterygoids functioned normally. VII: She had normal facial expressions and no facial asymmetry. VIII: She was able to hear well bilaterally and had no nystagmus. IX: The palate moved symmetrically on phonation. X: She had no hoarseness of voice. XI: The sternocleidomastoids and trapezii functioned normally. XII: The tongue was in the midline without any fasciculations or atrophy. MOTOR SYSTEM: The tone was normal in all four extremities. Examination of muscle mass revealed no focal wasting. Examination of power revealed grade 5/5 power in all muscle groups tested except for both shoulders where the motion was limited by pain. She also had grade 5-/5 power in the left finger extensors and iliopsoas. SENSORY EXAMINATION: She had intact sensations to pinprick, light touch, and graphesthesia. COORDINATION: She performed well on alalrt-by-xmhr and [id number] testing. REFLEXES: Trace+ and bilaterally symmetrical at the biceps, triceps, brachioradialis, and knees. 0 at both ankles. The plantar responses were flexor bilaterally. STANCE: She stood up with support. GAIT: She walked with support with mildly left paretic gait. She was steadier on her feet. Impression/Recommendations Diagnostic Impression 1. Ms. Gayatri Urbano is an 81-year-old, right-handed, black lady, who does have a past history of hypertension, dyslipidemia, hypothyroidism, coronary artery disease - status post percutaneous intervention and stent placement, stroke associated with left hemiparesis, and arthritis involving multiple joints, who a few months ago started to have periods where she felt tired but had generalized body aches and would feel unwell. This was worked up when she was in [place] with no definite diagnosis. She then moved back to [place] and felt well for some time, but then 3 weeks ago, she started to have the same symptoms. 2. She continues to feel much better with less malaise and less body pain, however her joints are painful today. 3. On neurological examination, at this time, she does have problems recent and remote memory, visuospatial function, higher cognitive function and language. She also has decreased shoulder movements due to pain and arthritis involving the joints, a mild left paresis involving the face and upper and lower extremities, and globally diminished deep tendon reflexes. She walks with mildly left paretic gait. 4. Laboratory data on my initial evaluation revealed that she was anemic with hemoglobin of 10.0. The chemistry panel revealed a creatinine elevated to 1.7. The CK was elevated to 258. Her total protein was down at 6.2. Her TSH, T3, and T4 were within normal range. Her urinalysis was benign. 5 At this point in time, it is unclear as to what is causing the patient's generalized body aches and pains, malaise, and feeling of being ill. It is unclear if the problem that she has represents a rheumatological problem or myopathic problem. She also is demonstrating signs of cognitive dysfunction. 6. She is improving generally. In addition her muscle pain is better and so is the malaise.. Recommendations 1. Continue present management. 2. Await complete work up for treatable causes of malaise, muscle pain, and cognitive decline. 3. The patient was encouraged to stay as active as possible. Martell Mojica M.D., M.SMARTELL CARDONA Sep 24, 2016 14:00
[2016-09-24 16:00] VITALS: BP 110/46
--- NOTE | 2016-09-24 16:02 | General Progress Note ---
Assessment/Plan Problem List: (1) Hypertension ICD Codes: I10 - Essential (primary) hypertension SNOMED: 32199320 (2) Abdominal pain ICD Codes: R10.9 - Unspecified abdominal pain SNOMED: 06329939 (3) Anemia ICD Codes: D64.9 - Anemia, unspecified SNOMED: 606686866 Assessment/Plan abd pain of unknown etiology stable H&H D/W the patient regarding colonoscopy and she agreed plan for EGD and colonoscopy on Sunday Subjective ROS Limited/Unobtainable: Yes Allergies: Coded Allergies: No Known Allergies (Verified , 04/23/15) All Systems: reviewed and negative except above Subjective feeling better Objective Last 24 Hour Vital Signs Date Time Temp Pulse Resp B/P Pulse Ox O2 Delivery O2 Flow Rate FiO2 09/24/16 14:13 98.1 09/24/16 12:00 98.1 55 18 137/56 97 Room Air 09/24/16 09:38 140/63 09/24/16 09:00 57 59 53 09/24/16 08:00 97.9 54 18 140/63 97 Room Air 09/24/16 06:05 58 61 71 09/24/16 01:00 58 61 71 09/23/16 20:24 70 114/60 09/23/16 19:00 98.2 71 20 112/63 96 Room Air 09/23/16 17:00 64 64 92 Intake and Output 09/23/16 09/24/16 19:00 07:00 Intake Total 480 ml Balance 480 ml Intake Oral 480 ml # Voids 2 1 Laboratory Tests 09/24/16 05:35: White Blood Count 7.1, Red Blood Count 3.34L, Hemoglobin 10.3L, Hematocrit 31.9L , Mean Corpuscular Volume 96, Mean Corpuscular Hemoglobin 31.0, Mean Corpuscular Hemoglobin Concent 32.3, Red Cell Distribution Width 13.8, Platelet Count 293, Mean Platelet Volume 6.6, Neutrophils (%) (Auto) 53.3, Lymphocytes (% ) (Auto) 32.8, Monocytes (%) (Auto) 10.7H, Eosinophils (%) (Auto) 2.2, Basophils (%) (Auto) 1.0, Sodium Level 135, Potassium Level 4.3, Chloride Level 94L, Carbon Dioxide Level 28, Anion Gap 13, Blood Urea Nitrogen 16, Creatinine 1.7H, Estimat Glomerular Filtration Rate , Glucose Level 100, Calcium Level 9.5 Height (Feet): 5 Height (Inches): 3.00 Weight (Pounds): 169 General Appearance: alert EENT: normal ENT inspection Neck: supple Cardiovascular: normal rate Respiratory/Chest: decreased breath sounds Abdomen: normal bowel sounds, non tender, soft Extremities: non-tender Objective Procedure: CT Abdomen Pelvis WO Contrast Indication: Abdominal pain x1 month Technique: Spiral acquisitions obtained through the abdomen and pelvis. No oral contrast utilized, per emergency room physician request No IV contrast utilized, per referring physician request.. Multiplanar reconstructions were generated. Total dose length product 829 mGycm. CTDIvol(s) 18 mGy Comparison: 09/06/2011 contrast study Findings: The appendix is not clearly identified, but there are no findings to suggest acute appendicitis. No evidence of diverticulosis or diverticulitis. No small bowel distention. No free or loculated intraperitoneal air or fluid is evident. There is a fusiform infrarenal abdominal aortic aneurysm, measuring 31 mm maximal diameter. This is also reported previously. No evidence of leakage or rupture. There is also ectasia of the bilateral common iliac arteries, particularly the right. Likely contrast limits assessment of the solid organs. The gallbladder is surgically absent. The liver demonstrates scattered punctate calcifications. There is ectasia of the extrahepatic bile ducts, common bile duct measuring approximately 8 mm diameter. No downstream obstructive lesion demonstrated. The pancreas is unremarkable. Calcifications are again demonstrated within the spleen. The adrenals and kidneys are unremarkable. No mesenteric or retroperitoneal mass or adenopathy. No pelvic mass or adenopathy. The uterus is absent, presumably surgically. The included lung bases demonstrate minimal dependent atelectatic changes. The heart is enlarged. The bones demonstrate marked degenerative spondylosis changes. There are anterior wedge compression fracture deformities of T9 and T10. These were not demonstrated on the prior study Impression: No definite acute process 31 mm fusiform infrarenal abdominal aortic aneurysm, also reported previously, stable. No evidence of leakage or rupture Evidence of old granulomatous disease within the liver and spleen T9 and T10 compression fracture deformities. New since 09/06/2011, acuity otherwise indeterminate although suspect not acute. Consider MRI for further correlation if this is considered clinically relevant. Ectatic extrahepatic bile ducts, probably related to age and postcholecystectomy state. Downstream obstruction not completely excludable, however. Recommend correlation with liver function tests Cardiomegaly Other findings as noted, including degenerative spondylosis, evidence of prior hysterectomy, evidence of prior cholecystectomy, dependent pulmonary parenchymal atelectasis This agrees with the preliminary interpretation provided overnight by [facility] teleradiology service. The CT scanner at [facility] is accredited by the [employer] and the scans are performed using protocols designed to limit radiation exposure to as low as reasonably achievable to attain images of sufficient resolution adequate for diagnostic evaluation. Dictated By: BOUBACAR LAGUERRE M.D. Electronically Signed By: BOUBACAR LAGUERRE M.D. Signed Date/Time 09/20/16 0930 RAMIREZ WHITE Sep 24, 2016 16:02
[2016-09-24] MEDS ORDERED: Nulytely 4L ORAL ONE (16:30)
[2016-09-24] MEDS ORDERED: Bisacodyl EC 5mg tab ORAL ONE (16:30)
--- NOTE | 2016-09-24 16:36 | Cardiology Progress Note ---
Assessment/Plan Assessment/Plan follow lytes Subjective Subjective the patient is sitting in the chair feels better no pain beside "usual arthritis pain" Objective Last 24 Hour Vital Signs Date Time Temp Pulse Resp B/P Pulse Ox O2 Delivery O2 Flow Rate FiO2 09/24/16 14:13 98.1 09/24/16 12:00 98.1 55 18 137/56 97 Room Air 09/24/16 09:38 140/63 09/24/16 09:00 57 59 53 09/24/16 08:00 97.9 54 18 140/63 97 Room Air 09/24/16 06:05 58 61 71 09/24/16 01:00 58 61 71 09/23/16 20:24 70 114/60 09/23/16 19:00 98.2 71 20 112/63 96 Room Air 09/23/16 17:00 64 64 92 General Appearance: other - elderly and frial, but not in any distress EENT: PERRL/EOMI Neck: supple Rhythm: NSR Cardiovascular: normal rate Respiratory/Chest: decreased breath sounds Abdomen: non tender Intake and Output 09/23/16 09/24/16 19:00 07:00 Intake Total 480 ml Balance 480 ml Intake Oral 480 ml # Voids 2 1 Laboratory Tests Test 09/24/16 05:35 White Blood Count 7.1 K/UL (4.8-10.8) Red Blood Count 3.34 M/UL (4.20-5.40) L Hemoglobin 10.3 G/DL (12.0-16.0) L Hematocrit 31.9 % (37.0-47.0) L Mean Corpuscular Volume 96 FL (80-99) Mean Corpuscular Hemoglobin 31.0 PG (27.0-31.0) Mean Corpuscular Hemoglobin Concent 32.3 G/DL (32.0-36.0) Red Cell Distribution Width 13.8 % (11.6-14.8) Platelet Count 293 K/UL (150-450) Mean Platelet Volume 6.6 FL (6.5-10.1) Neutrophils (%) (Auto) 53.3 % (45.0-75.0) Lymphocytes (%) (Auto) 32.8 % (20.0-45.0) Monocytes (%) (Auto) 10.7 % (1.0-10.0) H Eosinophils (%) (Auto) 2.2 % (0.0-3.0) Basophils (%) (Auto) 1.0 % (0.0-2.0) Sodium Level 135 mEQ/L (135-145) Potassium Level 4.3 mEQ/L (3.4-4.9) Chloride Level 94 mEQ/L (98-107) L Carbon Dioxide Level 28 mEQ/L (20-30) Anion Gap 13 (5-15) Blood Urea Nitrogen 16 mg/dL (7-23) Creatinine 1.7 mg/dL (0.5-0.9) H Estimat Glomerular Filtration Rate mL/min (>60) Glucose Level 100 mg/dL (74-106) Calcium Level 9.5 mg/dL (8.6-10.2) GURDEEP LOZANO Sep 24, 2016 16:36
[2016-09-24 18:29] LABS: ANION GAP 16 (5-15); CALCIUM 9.6 mg/dL (8.6-10.2); CARBON DIOXIDE 24 mEQ/L (20-30); CHLORIDE 94 mEQ/L (98-107); CREATININE 1.6 mg/dL (0.5-0.9); HEMOLYSIS 25; POTASSIUM 4.3 mEQ/L (3.4-4.9); SODIUM 134 mEQ/L (135-145)
[2016-09-24 20:00] VITALS: BP 142/64
[2016-09-24] MEDS: ALPRAZolam 0.5mg tab ORAL SCH (20:05)
[2016-09-24] MEDS: TraZODone 50mg tab ORAL PRN (21:45)
[2016-09-25] VITALS (10 sets, daily range): BP systolic 140–179; BP diastolic 57–80
--- NOTE | 2016-09-25 07:02 | Anethesia Preoperative Eval ---
Anesthesia Pre-op PMH/ROS General Date of Evaluation: Sep 25, 2016 Anesthesiologist: Alcides ASA Score: ASA 3 Mallampati Score Class I : Soft palate, uvula, fauces, pillars visible Class II: Soft palate, uvula, fauces visible Class III: Soft palate, base of uvula visible Class IV: Only hard plate visible Mallampati Classification: Class II Surgeon: Jaycee Diagnosis: GI bleed Surgical Procedure: EGD Anesthesia History: none Family History: no anesthesia problems Allergies: Coded Allergies: No Known Allergies (Verified , 04/23/15) Medications: see eMAR Past Medical History Cardiovascular: Reports: CAD, HTN, [place], other - HLD, PVD, Denies: arrhythmia, valve dz Pulmonary: Denies: COPD, PAM, asthma, other Gastrointestinal/Genitourinary: Reports: GERD, Denies: CRI, ESRD, other Neurologic/Psychiatric: Reports: CVA, depression/anxiety, Denies: TIA, dementia, other Endocrine: Reports: hypothyroidism, Denies: DM, other, steroids HEENT: Denies: LOWER ELWHA (L), LOWER ELWHA (R), cataract (L), cataract (R), glaucoma, other Hematology/Immune: Reports: anemia, Denies: DVT, bleeding disorder, other Musculoskeletal/Integumentary: Reports: OA, Denies: DDD, DJD, RA, edema, other Other: obesity PSxH Narrative: IMELDA, lap rhianna Anesthesia Pre-op Phys. Exam Physician Exam Last Vital Signs Date Time Temp Pulse Resp B/P Pulse Ox O2 Delivery O2 Flow Rate FiO2 09/25/16 02:28 97.3 09/25/16 01:02 61 68 83 09/25/16 00:00 20 140/69 94 Room Air Constitutional: NAD Cardiovascular: RRR Respiratory: CTA Airway Exam Mallampati Score: Class II MO: full ROM: full Teeth: intact Anesthesia Pre-op A/P Labs Hematology Test 09/25/16 05:40 White Blood Count Pending Red Blood Count Pending Hemoglobin Pending Hematocrit Pending Mean Corpuscular Volume Pending Mean Corpuscular Hemoglobin Pending Mean Corpuscular Hemoglobin Concent Pending Red Cell Distribution Width Pending Platelet Count Pending Mean Platelet Volume Pending Neutrophils (%) (Auto) Pending Lymphocytes (%) (Auto) Pending Monocytes (%) (Auto) Pending Eosinophils (%) (Auto) Pending Basophils (%) (Auto) Pending Chemistry Test 09/24/16 17:50 09/25/16 05:40 Sodium Level 134 mEQ/L (135-145) L Pending Potassium Level 4.3 mEQ/L (3.4-4.9) Pending Chloride Level 94 mEQ/L (98-107) L Pending Carbon Dioxide Level 24 mEQ/L (20-30) Pending Anion Gap 16 (5-15) H Blood Urea Nitrogen 16 mg/dL (7-23) Pending Creatinine 1.6 mg/dL (0.5-0.9) H Pending Estimat Glomerular Filtration Rate mL/min (>60) Pending Glucose Level 123 mg/dL (74-106) H Pending Calcium Level 9.6 mg/dL (8.6-10.2) Pending Risk Assessment & Plan Assessment: ASA III Plan: MAC Status Change Before Surgery: No Pre-Antibiotics Drug: N/A GOLDY ECKERT M.D. Sep 25, 2016 07:01
[2016-09-25 07:12] LABS: BASOPHILS % (AUTO) 0.6 % (0.0-2.0); EOSINOPHILS % (AUTO) 3.2 % (0.0-3.0); LYMPHOCYTES % (AUTO) 30.3 % (20.0-45.0); MEAN CORPUSCULAR HEMOGLOBIN 30.5 PG (27.0-31.0); MEAN CORPUSCULAR HGB CONC 32.1 G/DL (32.0-36.0); MEAN CORPUSCULAR VOLUME 95 FL (80-99); MEAN PLATELET VOLUME 6.4 FL (6.5-10.1); MONOCYTES % (AUTO) 12.6 % (1.0-10.0); NEUTROPHILS % (AUTO) 53.2 % (45.0-75.0); PLATELET COUNT 278 K/UL (150-450); RED BLOOD COUNT 3.05 M/UL (4.20-5.40); RED CELL DISTRIBUTION WIDTH 13.5 % (11.6-14.8); WHITE BLOOD COUNT 5.8 K/UL (4.8-10.8)
[2016-09-25 07:31] LABS: ANION GAP 11 (5-15); CALCIUM 9.8 mg/dL (8.6-10.2); CARBON DIOXIDE 27 mEQ/L (20-30); CHLORIDE 98 mEQ/L (98-107); CREATININE 1.4 mg/dL (0.5-0.9); HEMOLYSIS 1; SODIUM 136 mEQ/L (135-145)
[2016-09-25] MEDS: Heparin 5000 units/ml inj SUBQ SCH ×2 (09:00→21:44)
[2016-09-25] MEDS: Benzonatate 100mg Perles ORAL SCH ×3 (09:00→17:34)
[2016-09-25] MEDS: Irbesartan 150mg tablet ORAL SCH (09:00)
[2016-09-25] MEDS: Aspirin EC 81mg tab ORAL SCH (09:00)
[2016-09-25] MEDS: Sertraline 50mg tab ORAL SCH (09:00)
[2016-09-25] MEDS: Memantine 5 MG TAB ORAL SCH ×2 (09:00→17:34)
[2016-09-25] MEDS ORDERED: LR 1000ml 1,000 ML IVLG SCH (09:53)
--- NOTE | 2016-09-25 09:53 | 48 Hour Post Anesthesia Eval ---
Post Anesthesia Evaluation Procedure: EGD Date of Evaluation: Sep 25, 2016 Blood Pressure Systolic: 144 0: 82 Pulse Rate: 72 Respiratory Rate: 17 O2 Sat by Pulse Oximetry: 99 Airway: patent Nausea: No Vomiting: No Pain Intensity: 0 Hydration Status: adequate Cardiopulmonary Status: at baseline Mental Status/LOC: patient returned to baseline Post-Anesthesia Complications: 0 Follow-up care needed: N/A - further care as per primary team GOLDY ECKERT M.D. Sep 25, 2016 09:53
--- NOTE | 2016-09-25 09:53 | Immediate Post-Op Evaluation ---
Immediate Post-Op Evalulation Immediate Post-Op Evalulation Procedure: EGD Date of Evaluation: Sep 25, 2016 Time of Evaluation: 12:08 IV Fluids: 100 Blood Products: 0 Estimated Blood Loss: 0 Urinary Output: 0 Blood Pressure Systolic: 156 Blood Pressure Diastolic: 79 Pulse Rate: 70 Respiratory Rate: 16 O2 Sat by Pulse Oximetry: 100 Temperature (Fahrenheit): 97.6 Pain Score (1-10): 0 Nausea: No Vomiting: No Complications 0 Patient Status: awake, reacts, patent, none Hydration Status: adequate Drug: N/A GOLDY ECKERT M.D. Sep 25, 2016 09:53
[2016-09-25] MEDS ORDERED: DiphenhydrAMINE 50mg/ml Inj IVP PRN (10:00)
[2016-09-25] MEDS ORDERED: Labetalol 5mg/ml 20ml vial IV PRN (10:00)
[2016-09-25] MEDS ORDERED: Propofol 10mg/ml 20ml IV ONE (11:30)
[2016-09-25] MEDS ORDERED: Lidocaine 1% MPF 10mg/ml 5ml ONE (11:30)
[2016-09-25] MEDS ORDERED: LR 1000ml ONE (11:30)
--- NOTE | 2016-09-25 11:47 | Pre-Procedure Note/Attestation ---
Pre-Procedure Note/Attestation Complete Prior to Procedure Planned Procedure: not applicable Procedure Narrative: egd Indications for Procedure Pre-Operative Diagnosis: anemia Attestation I attest that I discussed the nature of the procedure; its benefits; risks and complications; and alternatives (and the risks and benefits of such alternatives ), prior to the procedure, with the patient (or the patient's legal quality assurance representative). I attest that, if there was a reasonable possibility of needing a blood transfusion, the patient (or the patient's legal quality assurance representative) was given the [facility] standardized written summary, pursuant to the [place] Blood Safety Act ([place] Health and Safety Code # 1645, as amended). I attest that I re-evaluated the patient just prior to the surgery and that there has been no change in the patient's H&P, except as documented below: RAMIREZ WHITE Sep 25, 2016 11:47
[2016-09-25] MEDS ORDERED: NS 550ML IV ONE ×2 (11:50→14:59)
--- NOTE | 2016-09-25 11:59 | Endoscopy Procedure Note ---
Endoscopy Procedure Note Indication for Procedure: abd pain Procedures Performed: EGD Operative Findings/Diagnosis: gu Specimen: yes Pt Tolerated Procedure Well: Yes Estimated Blood Loss: none Anesthesiologist: yolanda Anesthesia: MAC Implant(s) used?: No 50 yrs or older w/o bx or poly: Not Applicable 10yrs. F/U not recommended: Not Applicable RAMIREZ WHITE Sep 25, 2016 11:59
--- NOTE | 2016-09-25 14:31 | Neurology Progress Note ---
Interim History Interim History Interim History Ms. Urbano feels better generally. She just got back from an upper GI endoscopy.. She is sitting at the edge of her bed eating her lunch. The mind is clear. The fatigue is better. The generalized body pain is better. She has been able to walk better. She denies any new neurologic symptoms. Review of Systems Neuro Review of Systems Benign. Objective Physical Exam Last Vital Signs Date Time Temp Pulse Resp B/P Pulse Ox O2 Delivery O2 Flow Rate FiO2 09/25/16 13:07 97.0 55 146/74 97 Room Air 09/25/16 12:20 20 09/25/16 12:13 8.0 Laboratory Tests Test 09/24/16 17:50 09/25/16 05:40 Sodium Level 134 mEQ/L (135-145) L 136 mEQ/L (135-145) Potassium Level 4.3 mEQ/L (3.4-4.9) 4.0 mEQ/L (3.4-4.9) Chloride Level 94 mEQ/L (98-107) L 98 mEQ/L (98-107) Carbon Dioxide Level 24 mEQ/L (20-30) 27 mEQ/L (20-30) Anion Gap 16 (5-15) H 11 (5-15) Blood Urea Nitrogen 16 mg/dL (7-23) 15 mg/dL (7-23) Creatinine 1.6 mg/dL (0.5-0.9) H 1.4 mg/dL (0.5-0.9) H Estimat Glomerular Filtration Rate mL/min (>60) mL/min (>60) Glucose Level 123 mg/dL (74-106) H 95 mg/dL (74-106) Calcium Level 9.6 mg/dL (8.6-10.2) 9.8 mg/dL (8.6-10.2) White Blood Count 5.8 K/UL (4.8-10.8) Red Blood Count 3.05 M/UL (4.20-5.40) L Hemoglobin 9.3 G/DL (12.0-16.0) L Hematocrit 29.0 % (37.0-47.0) L Mean Corpuscular Volume 95 FL (80-99) Mean Corpuscular Hemoglobin 30.5 PG (27.0-31.0) Mean Corpuscular Hemoglobin Concent 32.1 G/DL (32.0-36.0) Red Cell Distribution Width 13.5 % (11.6-14.8) Platelet Count 278 K/UL (150-450) Mean Platelet Volume 6.4 FL (6.5-10.1) L Neutrophils (%) (Auto) 53.2 % (45.0-75.0) Lymphocytes (%) (Auto) 30.3 % (20.0-45.0) Monocytes (%) (Auto) 12.6 % (1.0-10.0) H Eosinophils (%) (Auto) 3.2 % (0.0-3.0) H Basophils (%) (Auto) 0.6 % (0.0-2.0) Neurologic Exam Objective PHYSICAL EXAMINATION: GENERAL: She is a well-developed, well-nourished, slightly obese, black lady, sitting up at the edge of her bed, in no acute distress. HEAD: Normocephalic and atraumatic. EENT: Examination benign. NECK: No neck rigidity was observed. NEUROLOGICAL EXAMINATION: MENTAL STATUS EXAMINATION: She was alert and awake. She was oriented to person, place, and time. She was able to recall 3/3 words immediately, but could only remember 2/3 words in 1 minute and 3 minutes.. She was able to remember presidents Trump and Obama, but could not remember presidents prior to that. Her mathematical skills were impaired. Her visuospatial function was also impaired. SPEECH: She had no dysarthria. LANGUAGE: She had anomia for low-frequency words. CRANIAL NERVE EXAMINATION: II: The visual yusuf were intact to confrontation testing. III, IV & : External ocular movements were full and the pupils 3 mm in diameter, equal, round, regular, and reactive to light. V: She had normal facial sensations and the temporales, masseters, and pterygoids functioned normally. VII: She had normal facial expressions and no facial asymmetry. VIII: She was able to hear well bilaterally and had no nystagmus. IX: The palate moved symmetrically on phonation. X: She had no hoarseness of voice. XI: The sternocleidomastoids and trapezii functioned normally. XII: The tongue was in the midline without any fasciculations or atrophy. MOTOR SYSTEM: The tone was normal in all four extremities. Examination of muscle mass revealed no focal wasting. Examination of power revealed grade 5/5 power in all muscle groups tested except for both shoulders where the motion was limited by pain. She also had grade 5-/5 power in the left finger extensors and iliopsoas. SENSORY EXAMINATION: She had intact sensations to pinprick, light touch, and graphesthesia. COORDINATION: She performed well on [id number] and [id number] testing. REFLEXES: Trace+ and bilaterally symmetrical at the biceps, triceps, brachioradialis, and knees. 0 at both ankles. The plantar responses were flexor bilaterally. STANCE: She stood up with support. GAIT: She walked with support with mildly left paretic gait. She was steadier on her feet. Impression/Recommendations Diagnostic Impression 1. Ms. Gayatri Urbano is an 81-year-old, right-handed, black lady, who does have a past history of hypertension, dyslipidemia, hypothyroidism, coronary artery disease - status post percutaneous intervention and stent placement, stroke associated with left hemiparesis, and arthritis involving multiple joints, who a few months ago started to have periods where she felt tired but had generalized body aches and would feel unwell. This was worked up when she was in [place] with no definite diagnosis. She then moved back to [place] and felt well for some time, but then 3 weeks ago, she started to have the same symptoms. 2. She continues to feel much better with less malaise and less body pain. 3. On neurological examination, at this time, she does have problems recent and remote memory, visuospatial function, higher cognitive function and language. She also has decreased shoulder movements due to pain and arthritis involving the joints, a mild left paresis involving the face and upper and lower extremities, and globally diminished deep tendon reflexes. She walks with mildly left paretic gait. 4. Laboratory data on my initial evaluation revealed that she was anemic with hemoglobin of 10.0. The chemistry panel revealed a creatinine elevated to 1.7. The CK was elevated to 258. Her total protein was down at 6.2. Her TSH, T3, and T4 were within normal range. Her urinalysis was benign. 5 At this point in time, it is unclear as to what is causing the patient's generalized body aches and pains, malaise, and feeling of being ill. It is unclear if the problem that she has represents a rheumatological problem or myopathic problem. She also is demonstrating signs of cognitive dysfunction. 6. She is improving generally. In addition her muscle pain is better and so is the malaise.. Recommendations 1. Continue present management. 2. Encourage to stay cognitively challenged. 3. Encourage to stay physically active. Martell Mojica M.D., M.S.P.H. MARTELL MOJICA Sep 25, 2016 14:31
--- NOTE | 2016-09-25 21:12 | Cardiology Progress Note ---
Assessment/Plan Assessment/Plan toxic metablic encephalopathy abd pain nausea chronic chhough hyponatermia ? 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 high dose of lipitor given in [place] which i recently decreased constipation lab all noted nothign sig remarkable s/p egdcolonoscopy seem stress is better h9ome tmorrow if all is well labs in am [place] Subjective Cardiovascular: Denies: chest pain Respiratory: Denies: shortness of breath Gastrointestinal/Abdominal: Denies: abdominal pain Genitourinary: Denies: burning Subjective had collsnocpy not been ut of be much feels better Objective Last 24 Hour Vital Signs Date Time Temp Pulse Resp B/P Pulse Ox O2 Delivery O2 Flow Rate FiO2 09/25/16 16:00 97.7 64 17 142/57 97 Room Air 09/25/16 13:07 97.0 55 146/74 97 Room Air 09/25/16 12:20 98.0 54 20 179/79 100 Room Air 09/25/16 12:18 54 20 179/79 100 Room Air 09/25/16 12:13 55 20 165/80 100 Simple Mask 8.0 09/25/16 12:08 62 20 162/73 100 Simple Mask 8.0 09/25/16 12:08 72 17 99 09/25/16 12:06 70 16 100 09/25/16 12:03 97.6 64 20 156/79 100 Simple Mask 8.0 09/25/16 11:52 98.2 62 20 143/71 97 Room Air 09/25/16 09:00 62 65 68 09/25/16 09:00 152/84 09/25/16 02:28 97.3 09/25/16 01:02 61 68 83 09/25/16 00:00 97.3 61 20 140/69 94 Room Air General Appearance: no apparent distress Neck: normal inspection Cardiovascular: normal rate, regular rhythm, no gallop/murmur Respiratory/Chest: lungs clear, normal breath sounds Abdomen: normal bowel sounds, non tender, soft Extremities: no swelling Intake and Output 09/24/16 09/25/16 19:00 07:00 Intake Total 360 ml Balance 360 ml Intake Oral 360 ml # Voids 2 3 # Bowel Movements 1 Laboratory Tests Test 09/25/16 05:40 White Blood Count 5.8 K/UL (4.8-10.8) Red Blood Count 3.05 M/UL (4.20-5.40) L Hemoglobin 9.3 G/DL (12.0-16.0) L Hematocrit 29.0 % (37.0-47.0) L Mean Corpuscular Volume 95 FL (80-99) Mean Corpuscular Hemoglobin 30.5 PG (27.0-31.0) Mean Corpuscular Hemoglobin Concent 32.1 G/DL (32.0-36.0) Red Cell Distribution Width 13.5 % (11.6-14.8) Platelet Count 278 K/UL (150-450) Mean Platelet Volume 6.4 FL (6.5-10.1) L Neutrophils (%) (Auto) 53.2 % (45.0-75.0) Lymphocytes (%) (Auto) 30.3 % (20.0-45.0) Monocytes (%) (Auto) 12.6 % (1.0-10.0) H Eosinophils (%) (Auto) 3.2 % (0.0-3.0) H Basophils (%) (Auto) 0.6 % (0.0-2.0) Sodium Level 136 mEQ/L (135-145) Potassium Level 4.0 mEQ/L (3.4-4.9) Chloride Level 98 mEQ/L (98-107) Carbon Dioxide Level 27 mEQ/L (20-30) Anion Gap 11 (5-15) Blood Urea Nitrogen 15 mg/dL (7-23) Creatinine 1.4 mg/dL (0.5-0.9) H Estimat Glomerular Filtration Rate mL/min (>60) Glucose Level 95 mg/dL (74-106) Calcium Level 9.8 mg/dL (8.6-10.2) ARNULFO VIDALES Sep 25, 2016 21:12
[2016-09-25] MEDS: ALPRAZolam 0.5mg tab ORAL SCH (21:43)
[2016-09-25] MEDS: TraZODone 50mg tab ORAL PRN (22:53)
--- NOTE | 2016-09-25 23:12 | Pulmonology Progress Note ---
Assessment/Plan Problems: (1) Anemia (2) Abdominal pain (3) CVA (cerebral infarction) (4) Hypertension (5) Pedal edema (6) Failure to thrive (7) Weakness Assessment/Plan Assessment/Plan PLAN OF CARE MS floor gentle IVF renal US pending likely ATN 2 to dehydration Na up to normal, likely depletional CXR negative for any acute cardiopulmonary disease no wheezing, no hemoptysis O2 HHN prn antitussive prn Subjective ROS Limited/Unobtainable: Yes Constitutional: Reports: anorexia, fatigue Neurologic: Reports: confusion, weakness Allergies: Coded Allergies: No Known Allergies (Verified , 04/23/15) Objective Last 24 Hour Vital Signs Date Time Temp Pulse Resp B/P Pulse Ox O2 Delivery O2 Flow Rate FiO2 09/25/16 21:43 64 142/57 09/25/16 20:00 97.9 69 18 160/79 96 Room Air 09/25/16 16:00 97.7 64 17 142/57 97 Room Air 09/25/16 13:07 97.0 55 146/74 97 Room Air 09/25/16 12:20 98.0 54 20 179/79 100 Room Air 09/25/16 12:18 54 20 179/79 100 Room Air 09/25/16 12:13 55 20 165/80 100 Simple Mask 8.0 09/25/16 12:08 62 20 162/73 100 Simple Mask 8.0 09/25/16 12:08 72 17 99 09/25/16 12:06 70 16 100 09/25/16 12:03 97.6 64 20 156/79 100 Simple Mask 8.0 09/25/16 11:52 98.2 62 20 143/71 97 Room Air 09/25/16 09:00 62 65 68 09/25/16 09:00 152/84 09/25/16 02:28 97.3 09/25/16 01:02 61 68 83 09/25/16 00:00 97.3 61 20 140/69 94 Room Air Intake and Output 09/24/16 09/25/16 19:00 07:00 Intake Total 360 ml Balance 360 ml Intake Oral 360 ml # Voids 2 3 # Bowel Movements 1 General Appearance: no acute distress HEENT: normocephalic, atraumatic, PERRL Respiratory/Chest: chest wall non-tender, normal breath sounds, no respiratory distress Breasts: no masses Cardiovascular: normal peripheral pulses, normal rate, regular rhythm, no JVD Abdomen: normal bowel sounds, soft, non tender, no organomegaly, non distended Genitourinary: normal external genitalia Extremities: no cyanosis Skin: other - pedal edema Neurologic/Psychiatric: responsive, abnormal CN, motor weakness, disoriented, aphasia Laboratory Tests 09/25/16 05:40: White Blood Count 5.8, Red Blood Count 3.05L, Hemoglobin 9.3L, Hematocrit 29.0L , Mean Corpuscular Volume 95, Mean Corpuscular Hemoglobin 30.5, Mean Corpuscular Hemoglobin Concent 32.1, Red Cell Distribution Width 13.5, Platelet Count 278, Mean Platelet Volume 6.4L, Neutrophils (%) (Auto) 53.2, Lymphocytes ( %) (Auto) 30.3, Monocytes (%) (Auto) 12.6H, Eosinophils (%) (Auto) 3.2H, Basophils (%) (Auto) 0.6, Sodium Level 136, Potassium Level 4.0, Chloride Level 98, Carbon Dioxide Level 27, Anion Gap 11, Blood Urea Nitrogen 15, Creatinine 1.4H, Estimat Glomerular Filtration Rate , Glucose Level 95, Calcium Level 9.8 Current Medications Medications (Trade) Dose Ordered Sig/Laura Route PRN Reason Start Time Stop Time Status Last Admin Dose Admin Acetaminophen (Tylenol) 650 mg Q6H PRN ORAL Mild Pain/Temp > 100.5 09/20/16 11:15 10/20/16 11:14 09/25/16 01:29 Alprazolam (Xanax) 0.5 mg BEDTIME ORAL 09/21/16 00:15 09/28/16 00:14 09/25/16 21:43 Aspirin (Ecotrin) 81 mg DAILY ORAL 09/20/16 09:00 10/20/16 08:59 09/24/16 09:37 Benzonatate (Tessalon Perles) 100 mg THREE TIMES A DAY ORAL 09/22/16 13:00 10/22/16 12:59 09/25/16 17:34 Clopidogrel Bisulfate (Plavix) 75 mg DAILY ORAL 09/20/16 09:00 10/20/16 08:59 09/24/16 09:38 Diphenhydramine HCl (Benadryl) 25 mg Q6H PRN ORAL Itching 09/21/16 17:45 10/21/16 17:44 Heparin Sodium (Porcine) (Heparin 5000 units/ml) 5,000 units EVERY 12 HOURS SUBQ 09/20/16 09:00 10/20/16 08:59 09/25/16 21:44 Irbesartan (Avapro) 150 mg DAILY ORAL 09/20/16 09:00 10/20/16 08:59 09/24/16 09:38 Levothyroxine Sodium (Synthroid) 50 mcg ACBREAKFAST ORAL 09/20/16 06:30 10/20/16 06:29 09/25/16 05:46 Magnesium Hydroxide (Mom) 30 ml TIDPRN PRN ORAL Constipation 09/21/16 17:45 10/21/16 17:44 09/21/16 17:39 Memantine (Namenda) 5 mg BID ORAL 09/22/16 18:00 10/22/16 17:59 09/25/16 17:34 Metoprolol Succinate (Toprol XL) 25 mg BEDTIME ORAL 09/20/16 21:00 10/20/16 20:59 09/25/16 21:43 Ondansetron HCl (Zofran) 4 mg Q6H PRN ORAL Nausea & Vomiting 09/20/16 01:30 10/20/16 01:29 09/22/16 19:34 Pantoprazole (Protonix) 40 mg DAILY ORAL 09/20/16 09:00 10/20/16 08:59 09/24/16 09:00 Sertraline HCl (Zoloft) 50 mg DAILY ORAL 09/23/16 09:00 10/23/16 08:59 09/24/16 09:38 Sodium Phosphate (Fleet's Sodium Phosl Enema) 133 ml DAILY PRN RECTAL Constipation 09/21/16 20:00 10/21/16 19:59 09/21/16 21:44 Trazodone HCl (Desyrel) 50 mg BEDTIME PRN ORAL insomnia 09/21/16 19:45 10/21/16 19:44 09/25/16 22:53 NANO WU Sep 25, 2016 23:12
[2016-09-26] VITALS: BP 144/56
[2016-09-26 03:49] VITALS: BP 138/69
[2016-09-26 05:31] LABS: BASOPHILS % (AUTO) 0.7 % (0.0-2.0); EOSINOPHILS % (AUTO) 2.4 % (0.0-3.0); LYMPHOCYTES % (AUTO) 30.3 % (20.0-45.0); MEAN CORPUSCULAR HEMOGLOBIN 30.8 PG (27.0-31.0); MEAN CORPUSCULAR HGB CONC 32.3 G/DL (32.0-36.0); MEAN CORPUSCULAR VOLUME 95 FL (80-99); MEAN PLATELET VOLUME 6.7 FL (6.5-10.1); MONOCYTES % (AUTO) 11.6 % (1.0-10.0); NEUTROPHILS % (AUTO) 55.1 % (45.0-75.0); PLATELET COUNT 283 K/UL (150-450); RED BLOOD COUNT 3.08 M/UL (4.20-5.40); RED CELL DISTRIBUTION WIDTH 13.5 % (11.6-14.8); WHITE BLOOD COUNT 5.9 K/UL (4.8-10.8)
[2016-09-26 05:45] LABS: ANION GAP 10 (5-15); CARBON DIOXIDE 28 mEQ/L (20-30); CHLORIDE 97 mEQ/L (98-107); CREATININE 1.4 mg/dL (0.5-0.9); HEMOLYSIS 1; SODIUM 135 mEQ/L (135-145)
--- NOTE | 2016-09-26 07:48 | Procedure Note ---
DATE OF PROCEDURE: 09/25/2016 SURGEON: Vishal Champion M.D. PROCEDURE: Post upper endoscopy with biopsy. ANESTHESIOLOGIST: INSTRUMENT: Olympus adult flexible endoscope. INDICATION: Abdominal pain and anemia. REASON FOR PROCEDURE: The procedure, risks, benefits, and possible consequences, including hemorrhage, aspiration, perforation and infection, and alternative treatments, were explained to the patient/legal guardian by Dr. Vishal Champion and the patient/legal guardian understood and accepted these risks. PROCEDURE: After informed consent was obtained and the patient was adequately sedated, Olympus upper endoscope was advanced from the mouth into the second portion of the duodenum and retroflexion was performed in the stomach. The patient had diffuse atrophic gastritis. There was a linear ulceration in the gastric body along the lesser curvature clean base . There was evidence of small hiatal hernia. Random biopsy from antrum was obtained to rule out H. pylori infection. SUMMARY OF FINDINGS: 1. Shallow gastric ulceration see above for detail. 2. Atrophic gastritis status post biopsy. 3. Small hiatal hernia. RECOMMENDATIONS: Follow up biopsies and treat accordingly. Vishal Champion M.D. DR: Boni JOB#: [id number] CC:
[2016-09-26 08:00] VITALS: BP 127/66
[2016-09-26] MEDS: Benzonatate 100mg Perles ORAL SCH ×3 (10:30→17:41)
[2016-09-26] MEDS: Memantine 5 MG TAB ORAL SCH ×2 (10:30→17:41)
[2016-09-26] MEDS: Aspirin EC 81mg tab ORAL SCH (10:31)
[2016-09-26] MEDS: Sertraline 50mg tab ORAL SCH (10:31)
[2016-09-26] MEDS: Irbesartan 150mg tablet ORAL SCH (10:35)
[2016-09-26] MEDS: Heparin 5000 units/ml inj SUBQ SCH (10:41)
[2016-09-26 12:00] VITALS: BP 121/48
--- NOTE | 2016-09-26 12:48 | GI Progress Note ---
Assessment/Plan Problems: (1) Failure to thrive SNOMED: 95552889 (2) Anemia ICD Codes: D64.9 - Anemia, unspecified SNOMED: 860780852 (3) Abdominal pain ICD Codes: R10.9 - Unspecified abdominal pain SNOMED: 50036667 (4) Weakness ICD Codes: R53.1 - Weakness SNOMED: 60098727 Status: stable Status Narrative Discussed with Dr. Champion. Assessment/Plan ok DC per GI standpoint SUMMARY OF FINDINGS: 1. Shallow gastric ulceration see above for detail. 2. Atrophic gastritis status post biopsy. 3. Small hiatal hernia. APCT unremarkable chronic anemia 2/2 kidney disease OB stool negative symptomatic treatment fu H. Pylori biopsy stable H&H, transfuse prn cardiac diet, tolerating ppi pain mgmt PT eval fu labs Subjective Subjective generalized weakness Objective Last 24 Hour Vital Signs Date Time Temp Pulse Resp B/P Pulse Ox O2 Delivery O2 Flow Rate FiO2 09/26/16 12:00 97.0 65 18 121/48 98 Room Air 09/26/16 10:35 144/77 09/26/16 09:10 59 09/26/16 09:05 62 09/26/16 09:00 59 09/26/16 08:00 97.9 56 18 127/66 97 Room Air 09/26/16 03:49 97.6 67 18 138/69 98 Room Air 09/26/16 02:05 97.8 09/26/16 00:30 68 74 86 09/26/16 00:00 97.8 68 18 144/56 97 Room Air 09/25/16 21:43 64 142/57 09/25/16 20:00 97.9 69 18 160/79 96 Room Air 09/25/16 17:00 69 71 98 09/25/16 16:00 97.7 64 17 142/57 97 Room Air 09/25/16 13:07 97.0 55 146/74 97 Room Air Intake and Output 09/25/16 09/26/16 19:00 07:00 Intake Total 220 ml 500 ml Output Total 2 ml Balance 220 ml 498 ml Intake Oral 120 ml 200 ml IV Total 100 ml Other 300 ml Output Urine Total 2 ml # Voids 1 3 Laboratory Tests Test 09/26/16 04:10 White Blood Count 5.9 K/UL (4.8-10.8) Red Blood Count 3.08 M/UL (4.20-5.40) L Hemoglobin 9.5 G/DL (12.0-16.0) L Hematocrit 29.4 % (37.0-47.0) L Mean Corpuscular Volume 95 FL (80-99) Mean Corpuscular Hemoglobin 30.8 PG (27.0-31.0) Mean Corpuscular Hemoglobin Concent 32.3 G/DL (32.0-36.0) Red Cell Distribution Width 13.5 % (11.6-14.8) Platelet Count 283 K/UL (150-450) Mean Platelet Volume 6.7 FL (6.5-10.1) Neutrophils (%) (Auto) 55.1 % (45.0-75.0) Lymphocytes (%) (Auto) 30.3 % (20.0-45.0) Monocytes (%) (Auto) 11.6 % (1.0-10.0) H Eosinophils (%) (Auto) 2.4 % (0.0-3.0) Basophils (%) (Auto) 0.7 % (0.0-2.0) Sodium Level 135 mEQ/L (135-145) Potassium Level 4.0 mEQ/L (3.4-4.9) Chloride Level 97 mEQ/L (98-107) L Carbon Dioxide Level 28 mEQ/L (20-30) Anion Gap 10 (5-15) Blood Urea Nitrogen 18 mg/dL (7-23) Creatinine 1.4 mg/dL (0.5-0.9) H Estimat Glomerular Filtration Rate mL/min (>60) Glucose Level 89 mg/dL (74-106) Calcium Level 10.0 mg/dL (8.6-10.2) Height (Feet): 5 Height (Inches): 2.00 Weight (Pounds): 168 General Appearance: no apparent distress, alert Cardiovascular: normal rate Respiratory/Chest: normal breath sounds, no accessory muscle use Abdominal Exam: normal bowel sounds, non tender, soft Objective DATE OF PROCEDURE: 09/25/2016 SURGEON: Vishal Champion M.D. PROCEDURE: Post upper endoscopy with biopsy. SUMMARY OF FINDINGS: 1. Shallow gastric ulceration see above for detail. 2. Atrophic gastritis status post biopsy. 3. Small hiatal hernia. RECOMMENDATIONS: Follow up biopsies and treat accordingly. Soo Doyle N.P. Sep 26, 2016 12:48
--- NOTE | 2016-09-26 14:08 | Diagnostic Imaging Report ---
Indication:Elevated Bun and Creatinine. Technique: Grayscale and duplex Doppler imaging of the kidneys performed. Comparison: None Findings: The size, contour, and echogenicity of both kidneys are within normal limits. There is no hydronephrosis. The IVC is unremarkable. Urinary bladder is distended. Cortical echogenicity and volume are normal. Both kidneys measure about 9 cm in length. Impression: Distended urinary bladder.
[2016-09-26] MEDS ORDERED: NS 275ml ONE ×2 (15:51→19:29)
--- NOTE | 2016-09-26 16:15 | Discharge Summary ---
Discharge Summary Hospital Course Date of Admission Sep 19, 2016 at 22:14 Date of Discharge Admitting Diagnosis weakness, viral syndrome, Failure to Thrive HPI Gayatri Urbano is a 81 year old female who was admitted on Sep 19, 2016 at 22: 14 for Weakness,Viral Syndrome,Failure To Thrive Hospital Course [id number] Discharge Discharge Disposition Patient was discharged to Discharge Diagnoses: ARNULFO VIDALES Sep 26, 2016 16:15
[2016-09-26] MEDS ORDERED: XANAX0.5 MG ORAL (16:19)
[2016-09-26] MEDS ORDERED: NAMENDA10 MG ORAL (16:19)
[2016-09-26] MEDS ORDERED: ZOLOFT50 MG ORAL (16:19)
--- NOTE | 2016-09-26 16:20 | Discharge Instructions ---
Discharge Instructions Discharge Instructions Special Instructions SEE DR VIDALES WITH IN 1 WEEK For Congestive Heart Failure Reminder Report to your physician any weight gain of 5 pounds or more in one week. ARNULFO VIDALES Sep 26, 2016 16:20
[2016-09-26] MEDS ORDERED: Tubing IV Secondary IV ONE (19:29)
--- NOTE | 2016-09-26 22:40 | Pulmonology Progress Note ---
Assessment/Plan Problems: (1) Anemia (2) Abdominal pain (3) CVA (cerebral infarction) (4) Hypertension (5) Pedal edema (6) Failure to thrive (7) Weakness (8) Dyspnea Assessment/Plan Breathing Tx PRN sob Titrate FiO2 up maintain O2 sat above 92 percent Anti-tussives PRN Aspiration precautions High risk aspiration 2nd CVA Tight BP and BG control Subjective ROS Limited/Unobtainable: Yes Constitutional: Reports: anorexia, fatigue Respiratory: Reports: dry cough, shortness of breath Neurologic: Reports: confusion, weakness Allergies: Coded Allergies: No Known Allergies (Verified , 04/23/15) Objective Last 24 Hour Vital Signs Date Time Temp Pulse Resp B/P Pulse Ox O2 Delivery O2 Flow Rate FiO2 09/26/16 12:00 97.0 65 18 121/48 98 Room Air 09/26/16 10:35 144/77 09/26/16 09:10 59 09/26/16 09:05 62 09/26/16 09:00 59 09/26/16 08:00 97.9 56 18 127/66 97 Room Air 09/26/16 03:49 97.6 67 18 138/69 98 Room Air 09/26/16 02:05 97.8 09/26/16 00:30 68 74 86 09/26/16 00:00 97.8 68 18 144/56 97 Room Air Intake and Output 09/25/16 09/26/16 19:00 07:00 Intake Total 220 ml 500 ml Output Total 2 ml Balance 220 ml 498 ml Intake Oral 120 ml 200 ml IV Total 100 ml Other 300 ml Output Urine Total 2 ml # Voids 1 3 General Appearance: no acute distress HEENT: normocephalic, atraumatic, PERRL Respiratory/Chest: chest wall non-tender, decreased breath sounds, accessory muscle use, rhonchi, expiratory wheezing Breasts: no masses Cardiovascular: normal peripheral pulses, normal rate, regular rhythm, no JVD Abdomen: normal bowel sounds, soft, non tender, no organomegaly, non distended Genitourinary: normal external genitalia Extremities: no cyanosis Skin: no rash, no lesions 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, no motor/sensory deficits Laboratory Tests 09/26/16 04:10: White Blood Count 5.9, Red Blood Count 3.08L, Hemoglobin 9.5L, Hematocrit 29.4L , Mean Corpuscular Volume 95, Mean Corpuscular Hemoglobin 30.8, Mean Corpuscular Hemoglobin Concent 32.3, Red Cell Distribution Width 13.5, Platelet Count 283, Mean Platelet Volume 6.7, Neutrophils (%) (Auto) 55.1, Lymphocytes (% ) (Auto) 30.3, Monocytes (%) (Auto) 11.6H, Eosinophils (%) (Auto) 2.4, Basophils (%) (Auto) 0.7, Sodium Level 135, Potassium Level 4.0, Chloride Level 97L, Carbon Dioxide Level 28, Anion Gap 10, Blood Urea Nitrogen 18, Creatinine 1.4H, Estimat Glomerular Filtration Rate , Glucose Level 89, Calcium Level 10.0 Current Medications Medications (Trade) Dose Ordered Sig/Laura Route PRN Reason Start Time Stop Time Status Last Admin Dose Admin Acetaminophen (Tylenol) 650 mg Q6H PRN ORAL Mild Pain/Temp > 100.5 09/20/16 11:15 10/20/16 11:14 09/26/16 01:04 Alprazolam (Xanax) 0.5 mg BEDTIME ORAL 09/21/16 00:15 09/28/16 00:14 09/25/16 21:43 Aspirin (Ecotrin) 81 mg DAILY ORAL 09/20/16 09:00 10/20/16 08:59 09/26/16 10:31 Benzonatate (Tessalon Perles) 100 mg THREE TIMES A DAY ORAL 09/22/16 13:00 10/22/16 12:59 09/26/16 17:41 Clopidogrel Bisulfate (Plavix) 75 mg DAILY ORAL 09/20/16 09:00 10/20/16 08:59 09/26/16 10:31 Diphenhydramine HCl (Benadryl) 25 mg Q6H PRN ORAL Itching 09/21/16 17:45 10/21/16 17:44 Heparin Sodium (Porcine) (Heparin 5000 units/ml) 5,000 units EVERY 12 HOURS SUBQ 09/20/16 09:00 10/20/16 08:59 09/26/16 10:41 Irbesartan (Avapro) 150 mg DAILY ORAL 09/20/16 09:00 10/20/16 08:59 09/26/16 10:35 Levothyroxine Sodium (Synthroid) 50 mcg ACBREAKFAST ORAL 09/20/16 06:30 10/20/16 06:29 09/26/16 06:47 Magnesium Hydroxide (Mom) 30 ml TIDPRN PRN ORAL Constipation 09/21/16 17:45 10/21/16 17:44 09/21/16 17:39 Memantine (Namenda) 5 mg BID ORAL 09/22/16 18:00 10/22/16 17:59 09/26/16 17:41 Metoprolol Succinate (Toprol XL) 25 mg BEDTIME ORAL 09/20/16 21:00 10/20/16 20:59 09/25/16 21:43 Ondansetron HCl (Zofran) 4 mg Q6H PRN ORAL Nausea & Vomiting 09/20/16 01:30 10/20/16 01:29 09/22/16 19:34 Pantoprazole (Protonix) 40 mg DAILY ORAL 09/20/16 09:00 10/20/16 08:59 09/26/16 10:30 Sertraline HCl (Zoloft) 50 mg DAILY ORAL 09/23/16 09:00 10/23/16 08:59 09/26/16 10:31 Sodium Phosphate (Fleet's Sodium Phosl Enema) 133 ml DAILY PRN RECTAL Constipation 09/21/16 20:00 10/21/16 19:59 09/21/16 21:44 Trazodone HCl (Desyrel) 50 mg BEDTIME PRN ORAL insomnia 09/21/16 19:45 10/21/16 19:44 09/25/16 22:53 NANO WU Sep 26, 2016 22:40
--- NOTE | 2016-09-27 02:48 | Discharge Summary ---
DATE OF ADMISSION: 09/19/2016 DATE OF DISCHARGE: 09/26/2016 DISCHARGE DIAGNOSES: 1. Toxic metabolic encephalopathy. 2. Abdominal pain and nausea, related to constipation. 3. Chronic cough. 4. Hyponatremia possibly related to Lexapro. 5. Chronic renal insufficiency. 6. Fibromyalgia. 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 8. Constipation. HOSPITAL COURSE: performed endoscopy and colonoscopy. Physicians seen. The patient was seen in consultation with Pulmonary, Dr. Zimmer. She was seen by Dr. Markus Mojica for Neurology and was seen by Dr. Champion for GI, and was seen by Psychiatry, covering for Dr. Isa Farr. The patient was admitted to the hospital because of recurrent episodes of mentation changes and weakness. It was felt that labs were okay. She underwent neuro imaging with a CT scan, which was negative. She had abdominal pelvic CT as well, as well as renal ultrasound and was seen in GI consultation. It was felt that her symptoms are mainly related to possible depression and anxiety. Psychiatry was involved. Zoloft was started. The patient was also started on medication for possible dementia and those medications were continued. She did improve during the hospitalization. She will be discharged on medications including Xanax at nighttime, aspirin 81 mg daily, Plavix 75 mg daily, and her usual blood pressure medication will be continued. She will be on Synthroid as well. She was started on Namenda 5 mg twice daily and she was started on Zoloft 50 mg on a daily basis. She has medication at nighttime of trazodone was continued. She was taken off Lexapro that she was getting for a short period of time. The patient will be discharged home. I have instructed the patient to see me as outpatient as soon as possible. She will have home health and seen as outpatient as well. Olayinka Albert M.D. DR: Alejandro JOB#: [id number] CC:
--- NOTE | 2016-10-06 09:30 | Consultation ---
DATE OF CONSULTATION: 09/22/2016 PSYCHOTHERAPY CONSULTATION PROGRESS NOTE CONSULTING PHYSICIAN: Brisa Granger M.D. TREATING ATTENDING PHYSICIAN: Olayinka Albert M.D. HISTORY OF PRESENT ILLNESS: The patient is an 81-year-old female. The patient was brought into the hospital for weakness and general failure to thrive. Appears to be very helpless and hopeless. Continues to be depressed and for this reason was referred for psychotherapeutic services. The patient presented to the therapist's office with anxiety, weakness, fatigue, and abdominal pain. When this clinician assessed this patient, the patient states that she has been feeling depressed, anxious, and has some difficulty sleeping. The patient states that her sister has been diagnosed with Alzheimer disease and her medical illness has been progressing and this is resulting in stresses for the patient resulting in anxiety, depression, and difficulty sleeping. The patient states she has been fatigued and weak as well. Denies suicidal or homicidal thoughts or ideation. Denies auditory or visual hallucinations. PAST MEDICAL HISTORY: History of coronary artery disease, hypertension, chronic renal insufficiency, degenerative joint disease, osteoporosis, hypertension, and hyperlipidemia. ALLERGIES: The patient has no known drug allergies. SUBSTANCE USE HISTORY: The patient denies any history of alcohol use, illicit substance use, or smoking cigarettes. PSYCHIATRIC HISTORY: The patient denies history of mental illness. SOCIAL HISTORY: The patient is an 81-year-old female, is retired from the [employer]. The patient states that she lives with her daughter and her three grandchildren. MENTAL STATUS EXAMINATION: The patient is alert and oriented x2 to person and place. Her mood is depressed. Affect is blunted. Thought process is slightly disorganized. The patient has poor attention and concentration. Fair insight. Poor judgment and poor impulse control. Denies suicidal or homicidal thoughts or ideation. Denies auditory or visual hallucinations. DIAGNOSES: AXIS I: 1. Generalized anxiety disorder. 2. Rule out major depressive disorder, mild without psychotic features. AXIS II: Deferred. AXIS III: Per History and Physical. AXIS IV: Problems with primary support. PLAN: This clinician assessed the patient and provided the patient with supportive psychotherapy, reality orientation, and coping skills. I asked the patient to follow up in session. Encouraging the patient to participate in treatment. Addressing the patient's current symptoms of depression and anxiety. Continue with medication management and behavioral management. This clinician has reviewed the patient's chart. Discussed the treatment with nursing staff. Brisa Granger PsyD. DR: DARRON JOB#: [id number] CC:
== END 2016-09-26 19:30 | disposition home health service (06) | DRG 91 ==
LOC: EMR 21:00 → 4W 22:14 → EDBEDREQ 22:31
PROC: 0DB68ZX Excision of Stomach, Via Natural or Artificial Opening Endoscopic, Diagnostic (ICD-10-PCS; principal; 2016-09-25 11:54)
DX: G92 Toxic encephalopathy (principal); N17.0 Acute kidney failure with tubular necrosis; E87.1 Hypo-osmolality and hyponatremia; I69.354 Hemiplegia and hemiparesis following cerebral infarction affecting left non-dominant side; F41.9 Anxiety disorder, unspecified; I25.10 Atherosclerotic heart disease of native coronary artery without angina pectoris; Z95.5 Presence of coronary angioplasty implant and graft; E86.0 Dehydration; G72.9 Myopathy, unspecified; M79.7 Fibromyalgia; R10.9 Unspecified abdominal pain; K59.00 Constipation, unspecified; N18.9 Chronic kidney disease, unspecified; I12.9 Hypertensive chronic kidney disease with stage 1 through stage 4 chronic kidney disease, or unspecified chronic kidney disease; E78.5 Hyperlipidemia, unspecified; Z79.02 Long term (current) use of antithrombotics/antiplatelets; E03.9 Hypothyroidism, unspecified; M19.90 Unspecified osteoarthritis, unspecified site; K44.9 Diaphragmatic hernia without obstruction or gangrene; K29.40 Chronic atrophic gastritis without bleeding; R62.7 Adult failure to thrive; D63.1 Anemia in chronic kidney disease; F41.8 Other specified anxiety disorders; F03.90 Unspecified dementia, unspecified severity, without behavioral disturbance, psychotic disturbance, mood disturbance, and anxiety; I71.4 Abdominal aortic aneurysm, without rupture
CPT/HCPCS: 36415; 70450; 71010; 74176; 76775; 80048; 80053; 81001; 81003; 82085; 82270; 82306; 82378; 82436; 82533; 82550; 82607; 82746; 83036; 83540; 83550; 83615; 83690; 83735; 83930; 83935; 84100; 84133; 84165; 84300; 84439; 84443; 84481; 84484; 84550; 85007; 85025; 85044; 85060; 85610; 85651; 85730; 86140; 86301; 86592; 86710; 89050; 94003; 94150

== ENCOUNTER 2016-10-06 17:03 | Inpatient (IN) | payer MEDICARE ==
[~2016-10-06] VITALS: Ht 157.5 cm; Wt 68.0 kg
[~2016-10-06 17:03] MED LIST changes: +METOPROLOL SUCC25 MG ORAL; +NAMENDA10 MG ORAL; +TRAZODONE HCL50 MG ORAL; +XANAX0.5 MG ORAL; +ZOLOFT50 MG ORAL
[2016-10-06] MEDS ORDERED: Morphine Sulfate 2mg/ml Inj IVP ONE (17:15)
--- NOTE | 2016-10-06 17:24 | Emergency Room Report ---
History of Present Illness General Chief Complaint: Generalized Weakness Source: Patient, Medical Record Present Illness HPI Patient presents with 2 problems. One is that she has increased left-sided weakness that began earlier today around noon. She usually is able to ambulate and is having difficulty doing that. She's had a history of a stroke in the past. She is on Plavix but has not been taking the medication until today. She missed several days. The second problem is that she has a bruise in the right lower part of her abdomen. She feels a knot in there. She does notice that today. She denies getting injections in that area. She denies any trauma. The patient also complains about bilateral shoulder pain from arthritis. She denies any headache, fever, vomiting. She's felt nauseated. She been moving her bowels without any diarrhea. There is no dysuria. She did not eat today. Allergies: Coded Allergies: No Known Allergies (Verified , 04/23/15) Patient History Social History Narrative home with son Nursing Documentation-H Hx Cardiac Problems: Yes Hx Hypertension: Yes Hx Pacemaker: No Hx Asthma: No Hx COPD: No Hx Diabetes: No Hx Cancer: No Hx Gastrointestinal Problems: No Hx Dialysis: No Hx Neurological Problems: Yes Hx Cerebrovascular Accident: Yes Hx Transient Ischemic Attacks: Yes Hx Seizures: No Hx Vertigo: Yes Hx Dizziness: Yes Hx Syncope: Yes Hx Headaches: Yes Hx Weakness: Yes Hx Fatigue: Yes Review of Systems All Other Systems: negative except mentioned in HPI Physical Exam Vital Signs Date Time Temp Pulse Resp B/P Pulse Ox O2 Delivery O2 Flow Rate FiO2 10/06/16 17:06 98.4 102 16 150/84 97 Sp02 EP Interpretation: reviewed, normal General Appearance: well appearing, no apparent distress, GCS 15 Head: normocephalic Eyes: bilateral eye normal inspection ENT: moist mucus membranes - poorly fitting plates Neck: supple Respiratory: lungs clear, normal breath sounds Cardiovascular #1: regular rate, rhythm Cardiovascular #2: 2+ radial (R) Gastrointestinal: normal inspection, normal bowel sounds, non tender, no mass, non-distended Musculoskeletal: back normal, normal range of motion Neurologic: alert, 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 no facial weakness, oriented - X2 Psychiatric: depressed affect Skin: normal inspection, warm/dry, hematoma - RLQ Medical Decision Making Diagnostic Impression: Primary Impression: Altered level of consciousness Additional Impressions: R/O CVA Hyponatremia Abdominal wall hematoma Qualified Codes: S30.1XXA - Contusion of abdominal wall, initial encounter Anxiety and depression ER Course Patient presents with increased left hand weakness and aloc. Differential includes CVA, bleed, ocular abnormality amongst others. Reevaluation with labs , EKG, chest x-ray and CT are undertaken. In addition such as a hematoma on her abdominal wall. Taxi to be checked for this. She is outside of the window for TPA. CT with atrophy. No bleed. Labs remarkable for + tox screen. Son reports she takes Xanax. Patient improved and ambulated to bathroom (at her insistence). Consider TIA versus CVA. Possible effect of benzodiazepines. Patient ate here. Admit telemetry Dr. Albert. Dr. Albert states complicated patient. He states that she was recently in [place] and hospitalized with possible depression/anxiety. She returned to [place] recently because they were unable to uncover any other pathology. Living with her family and the family called him today. He is uncertain whether she might have had heparin injected with recent hospitalizations in the lower abdomen. This is contrary to the patient's family christos is asserting that this just began today. Patient with agitation - "claustrophobic" with increased anxiety. Ativan ordered. Improved after ativan. Laboratory Tests Test 10/06/16 17:30 10/06/16 17:39 White Blood Count 7.3 K/UL (4.8-10.8) Red Blood Count 3.18 M/UL (4.20-5.40) L Hemoglobin 9.7 G/DL (12.0-16.0) L Hematocrit 30.2 % (37.0-47.0) L Mean Corpuscular Volume 95 FL (80-99) Mean Corpuscular Hemoglobin 30.6 PG (27.0-31.0) Mean Corpuscular Hemoglobin Concent 32.2 G/DL (32.0-36.0) Red Cell Distribution Width 13.1 % (11.6-14.8) Platelet Count 294 K/UL (150-450) Mean Platelet Volume 6.4 FL (6.5-10.1) L Neutrophils (%) (Auto) 72.8 % (45.0-75.0) Lymphocytes (%) (Auto) 18.0 % (20.0-45.0) L Monocytes (%) (Auto) 6.5 % (1.0-10.0) Eosinophils (%) (Auto) 1.1 % (0.0-3.0) Basophils (%) (Auto) 1.7 % (0.0-2.0) Prothrombin Time 9.6 SEC (9.30-11.50) Prothrombin Time INR 0.9 (0.9-1.1) PTT 25 SEC (23-33) Sodium Level 129 mEQ/L (135-145) L Potassium Level 4.4 mEQ/L (3.4-4.9) Chloride Level 89 mEQ/L (98-107) L Carbon Dioxide Level 24 mEQ/L (20-30) Anion Gap 16 (5-15) H Blood Urea Nitrogen 15 mg/dL (7-23) Creatinine 1.6 mg/dL (0.5-0.9) H Estimate Glomerular Filtration Rate mL/min (>60) Glucose Level 108 mg/dL (74-106) H Calcium Level 9.9 mg/dL (8.6-10.2) Total Bilirubin 0.3 mg/dL (0.0-1.2) Aspartate Amino Transferase (AST) 18 U/L (5-40) Alanine Aminotransferase (ALT) 15 U/L (3-33) Alkaline Phosphatase 78 U/L (35-104) Total Creatine Kinase 29 U/L (26-140) Troponin I < 0.30 ng/mL (<=0.30) Pro-B-Type Natriuretic Peptide 321 pg/mL (0-450) Total Protein 6.6 g/dL (6.6-8.7) Albumin 3.8 g/dL (3.5-5.2) Globulin 2.8 g/dL Albumin/Globulin Ratio 1.3 (1.0-2.7) Urine Color Pale yellow Urine Appearance Slightly cloudy Urine pH 6 (4.5-8.0) Urine Specific [place] 1.010 (1.005-1.035) Urine Protein Negative (NEGATIVE) Urine Glucose (UA) Negative (NEGATIVE) Urine Ketones Negative (NEGATIVE) Urine Occult Blood Negative (NEGATIVE) Urine Nitrite Negative (NEGATIVE) Urine Bilirubin Negative (NEGATIVE) Urine Urobilinogen Normal MG/DL (0.0-1.0) Urine Leukocyte Esterase 1+ (NEGATIVE) H Urine RBC 0-2 /HPF (0 - 2) Urine WBC 2-4 /HPF (0 - 2) Urine Squamous Epithelial Cells Many /LPF (NONE/OCC) H Urine Bacteria Few /HPF (NONE) Urine Opiates Screen Negative (NEGATIVE) Urine Barbiturates Screen Negative (NEGATIVE) Phencyclidine (PCP) Screen Negative (NEGATIVE) Urine Amphetamines Screen Negative (NEGATIVE) Urine Benzodiazepines Screen Positive (NEGATIVE) H Urine Cocaine Screen Negative (NEGATIVE) Urine Marijuana (THC) Screen Negative (NEGATIVE) EKG Diagnostic Results Rate: normal Rhythm: NSR ST Segments: no acute changes Rhythm Strip Diag. Results EP Interpretation: yes Rhythm: NSR, no PVC's, no ectopy Chest X-Ray Diagnostic Results EP Interpretation: Yes Findings: no consolidation, no effusion, no pneumothorax, other - atelectasis L base Number of Views: 1 CT/MRI/US Diagnostic Results CT/MRI/US Diagnostic Results : Imaging Test Ordered: head Impression involutional changes Last Vital Signs Date Time Temp Pulse Resp B/P Pulse Ox O2 Delivery O2 Flow Rate FiO2 10/06/16 20:23 98.4 87 16 143/78 97 Room Air Status: improved Disposition: ADMITTED INPATIENT Condition: Serious Jose Reina M.D. Oct 06, 2016 17:24
[2016-10-06 17:34] VITALS: BP 150/102
[2016-10-06 17:43] LABS: BASOPHILS % (AUTO) 1.7 % (0.0-2.0); EOSINOPHILS % (AUTO) 1.1 % (0.0-3.0); MEAN CORPUSCULAR HEMOGLOBIN 30.6 PG (27.0-31.0); MEAN CORPUSCULAR HGB CONC 32.2 G/DL (32.0-36.0); MEAN CORPUSCULAR VOLUME 95 FL (80-99); MEAN PLATELET VOLUME 6.4 FL (6.5-10.1); MONOCYTES % (AUTO) 6.5 % (1.0-10.0); NEUTROPHILS % (AUTO) 72.8 % (45.0-75.0); PLATELET COUNT 294 K/UL (150-450); RED BLOOD COUNT 3.18 M/UL (4.20-5.40); RED CELL DISTRIBUTION WIDTH 13.1 % (11.6-14.8); WHITE BLOOD COUNT 7.3 K/UL (4.8-10.8)
[2016-10-06 17:54] LABS: INR 0.9 (0.9-1.1); PROTHROMBIN TIME 9.6 SEC (9.30-11.50)
[2016-10-06 17:56] LABS: TROPONIN I < 0.30 ng/mL (<=0.30)
[2016-10-06 17:57] LABS: ALANINE AMINOTRANSFERASE 15 U/L (3-33); ALBUMIN/GLOBULIN RATIO 1.3 (1.0-2.7); ANION GAP 16 (5-15); ASPARTATE AMINO TRANSFERASE 18 U/L (5-40); CALCIUM 9.9 mg/dL (8.6-10.2); CARBON DIOXIDE 24 mEQ/L (20-30); CHLORIDE 89 mEQ/L (98-107); CREATININE 1.6 mg/dL (0.5-0.9); HEMOLYSIS 7; POTASSIUM 4.4 mEQ/L (3.4-4.9); SODIUM 129 mEQ/L (135-145); TOTAL PROTEIN 6.6 g/dL (6.6-8.7)
[2016-10-06 18:43] LABS: APPEARANCE,URINE SLIGHTLY CLOUDY; KETONES,URINE NEGATIVE (NEGATIVE); LEUKOCYTE ESTERASE ,URINE 1+ (NEGATIVE); NITRITE,URINE NEGATIVE (NEGATIVE); PH,URINE 6 (4.5-8.0); PROTEIN,URINE NEGATIVE (NEGATIVE); UROBILINOGEN,URINE NORMAL MG/DL (0.0-1.0)
[2016-10-06 19:17] LABS: RBC,URINE 0-2 /HPF (0 - 2)
[2016-10-06 19:18] LABS: BACTERIA,URINE FEW /HPF; SQUAMOUS EPITHELIAL CELL,UR MANY /LPF (NONE/OCC)
[2016-10-06 20:23] VITALS: BP 143/78
[2016-10-06] MEDS ORDERED: LORazepam Inj 2mg/ml 1ml IV ONE (21:30)
[2016-10-06 23:30] VITALS: BP 142/80
[2016-10-07] MEDS ORDERED: Lactulose 10gm/15ml UDC ORAL PRN (02:00)
[2016-10-07] MEDS ORDERED: ALPRAZolam 0.5mg tab ORAL PRN (02:00)
[2016-10-07 06:49] LABS: BASOPHILS % (AUTO) 1.3 % (0.0-2.0); LYMPHOCYTES % (AUTO) 19.4 % (20.0-45.0); MEAN CORPUSCULAR HEMOGLOBIN 30.9 PG (27.0-31.0); MEAN CORPUSCULAR HGB CONC 32.7 G/DL (32.0-36.0); MEAN CORPUSCULAR VOLUME 95 FL (80-99); MEAN PLATELET VOLUME 6.7 FL (6.5-10.1); MONOCYTES % (AUTO) 10.3 % (1.0-10.0); PLATELET COUNT 317 K/UL (150-450); RED CELL DISTRIBUTION WIDTH 13.2 % (11.6-14.8); WHITE BLOOD COUNT 6.3 K/UL (4.8-10.8)
[2016-10-07 07:15] LABS: ANION GAP 14 (5-15); CALCIUM 9.6 mg/dL (8.6-10.2); CARBON DIOXIDE 25 mEQ/L (20-30); CHLORIDE 93 mEQ/L (98-107); CREATININE 1.4 mg/dL (0.5-0.9); HEMOLYSIS 4; POTASSIUM 4.2 mEQ/L (3.4-4.9); SODIUM 132 mEQ/L (135-145)
[2016-10-07 08:15] VITALS: BP 172/93
[2016-10-07] MEDS: Heparin 5000 units/ml inj SUBQ SCH ×2 (09:00→21:37)
[2016-10-07] MEDS ORDERED: Aspirin Baby 81mg ORAL SCH (09:00)
[2016-10-07] MEDS ORDERED: Metoprolol 25mg tab ORAL SCH (09:00)
[2016-10-07] MEDS: Sertraline 50mg tab ORAL SCH (09:23)
[2016-10-07] MEDS: Memantine 5 MG TAB ORAL SCH ×2 (09:23→18:03)
[2016-10-07] MEDS: Aspirin EC 81mg tab ORAL SCH (09:23)
[2016-10-07] MEDS: Spironolactone 25mg tab ORAL SCH (09:26)
--- NOTE | 2016-10-07 11:00 | Diagnostic Imaging Report ---
Indication: Chest pain Technique: XRAY CHEST 1 V Comparison: 09/19/16 Findings: Cardiomediastinal silhouette is stable. There is left basilar atelectasis. Atherosclerotic changes are noted. Degenerative changes of the spine are seen. There is bilateral glenohumeral arthrosis. Impression: Left basilar atelectasis.
--- NOTE | 2016-10-07 11:02 | Diagnostic Imaging Report ---
Indication: Altered mental status Technique: Continuous helical CT scanning of the head was performed utilizing automated exposure control without intravenous contrast material. Axial and coronal reconstructions were obtained. Comparison: 09/19/16 CT dose: Total DLP 1319 mGycm; CTDI vol 70.4 mGy Findings: There is no acute intracranial hemorrhage, mass effect or cortical edema. The ventricles, cisterns and sulci are prominent consistent with atrophy. Periventricular and subcortical hypoattenuation are seen. There is an old infarct of the right frontal lobe. The posterior fossa and fourth ventricle are unremarkable. Sellar and suprasellar regions are grossly unremarkable. Visualized mastoid air cells and paranasal sinuses are unremarkable. No focal lesions of the bony calvarium or soft tissues of the scalp are seen. Impression: No evidence of acute intracranial hemorrhage, mass effect or cortical edema. MRI may be obtained for more sensitive evaluation as clinically indicated. Atrophy and nonspecific periventricular and subcortical hypoattenuation suggestive of chronic ischemic microvascular changes. Old infarct of the right frontal lobe. The CT scanner at [facility] is accredited by the [employer] and the scans are performed using protocols designed to limit radiation exposure to as low as reasonably achievable to attain images of sufficient resolution adequate for diagnostic evaluation.
[2016-10-07 16:00] VITALS: BP 124/63
[2016-10-07 20:00] VITALS: BP 152/92
[2016-10-07] MEDS: TraZODone 50mg tab ORAL SCH (21:34)
[2016-10-07] MEDS: Nortriptyline 25mg cap ORAL SCH (21:35)
--- NOTE | 2016-10-07 23:38 | History and Physical Report ---
DATE OF ADMISSION: 10/06/2016 This is being done as coverage for Dr. Olayinka Albert. REASON FOR ADMISSION: Generalized weakness. HISTORY OF PRESENT ILLNESS: History is obtained from the chart and the patient who is a fair historian. The patient is an 81-year-old woman with a history of hypertension, previous CVA, coronary artery disease with previous stent placement, hyperlipidemia, and arthritis. She presented to the emergency room yesterday with complaints of left-sided weakness, which began at noon on the day of admission. She reports generalized weakness and fatigue. She states that she had been visiting family in [place] and had similar symptoms of severe weakness and fatigue. There, she reports having been hospitalized, but details of this hospitalization is not available. In the emergency room, a head CT was performed showing no acute intracranial pathology. She was admitted for further treatment. MEDICATIONS: Atorvastatin 10 mg at bedtime, trazodone 50 mg at bedtime, Plavix 75 mg daily subcutaneous heparin 5000 units twice daily, aspirin 81 mg daily, Cymbalta 20 mg daily, Namenda 5 mg twice a day, metoprolol 25 mg daily, Zoloft 50 mg daily, spironolactone 25 mg daily, Lidoderm patch q.24 h., Synthroid 50 mcg daily, alprazolam 0.5 mg at bedtime p.r.n., Zofran as needed, and lactulose as needed. ALLERGIES: No known drug allergies. PAST MEDICAL HISTORY: As noted above. SOCIAL HISTORY: The patient is a nonsmoker. She does not drink alcohol. She lives with her son. PHYSICAL EXAMINATION: VITAL SIGNS: Blood pressure is 172/93, pulse 96 and regular, respirations 20, and afebrile. GENERAL: Alert, well-developed, female, in no acute distress. HEENT: Normocephalic and atraumatic. Pupils, status post bilateral iridectomies. Sclerae anicteric. Oral mucosa moist. NECK: Supple. There is no jugular venous distention. No carotid bruits. LUNGS: Clear to auscultation bilaterally. HEART: Regular rate and rhythm. S1 and S2 with no murmurs, rubs, S3, or S4. ABDOMEN: Soft, nontender, and nondistended. No palpable mass. EXTREMITIES: No cyanosis, clubbing, or edema. NEUROLOGIC: Alert. Oriented x3. No facial droop. No focal motor weakness. Light touch sensation intact. Ambulatory with walker. SKIN: There is an ecchymotic area with a subcutaneous hematoma of about 1 cm in the right lower abdomen. LABORATORY DATA: Hemoglobin 9.9, hematocrit 30, white blood count 6300, and platelets 317,000. Sodium 132, potassium 4.2, chloride 93, CO2 25, BUN 12, creatinine 1.4, and glucose 102. Troponin less than 0.3. Natriuretic peptide 321. Chest x-ray shows left basilar atelectasis. EKG is pending. ASSESSMENT AND RECOMMENDATIONS: The patient is an 81-year-old woman with a history of hypertension, coronary artery disease, and previous cerebrovascular accident who is admitted with generalized weakness and fatigue as well as possible left-sided weakness. She has had a negative head CT, and has no new symptoms today. She is hypertensive and was hyponatremic on admission, though this has resolved. I will continue her current medications including aspirin and Plavix given previous cerebrovascular accident. We will start beta-blockers for blood pressure control. We will check thyroid function tests. We will discuss possible neurology workup with Dr. Albert. Lali Burch M.D. DR: LIZ JOB#: [id number] CC:
[2016-10-08 04:18] VITALS: BP 147/67
[2016-10-08 08:00] VITALS: BP 134/69
[2016-10-08] MEDS: Spironolactone 25mg tab ORAL SCH (08:42)
[2016-10-08] MEDS: Memantine 5 MG TAB ORAL SCH ×2 (08:42→18:20)
[2016-10-08] MEDS: Sertraline 50mg tab ORAL SCH (08:42)
[2016-10-08] MEDS: Aspirin EC 81mg tab ORAL SCH (08:42)
[2016-10-08] MEDS: Heparin 5000 units/ml inj SUBQ SCH ×2 (08:43→21:18)
[2016-10-08 12:46] VITALS: BP_SYST 143; BP_SYST 156; BP_DIAS 58; BP_DIAS 67
--- NOTE | 2016-10-08 14:19 | Cardiology Progress Note ---
Assessment/Plan Status: stable, unchanged Status Narrative Hemodynamically stable. Uncertain cause of episode of weakness/ dizziness today No evidence for chf, acute MO or arrhythmia. Assessment/Plan Will check orthostatic VS. Carotid u/s - r/o carotid stenosis. Consider neuro evaluation. Subjective ROS Limited/Unobtainable: No Subjective Mrs. Urbano reports an episode of dizziness/ weakness this am. Per RN - rhythm was sinus and SBP 150 Sx resolved spontaneously. Objective Last 24 Hour Vital Signs Date Time Temp Pulse Resp B/P Pulse Ox O2 Delivery O2 Flow Rate FiO2 10/08/16 12:46 96.4 61 17 156/67 99 Room Air 10/08/16 08:42 64 134/69 10/08/16 08:00 58 10/08/16 08:00 98.1 64 16 134/69 99 Room Air 10/08/16 04:18 97.7 62 20 147/67 98 Room Air 10/08/16 04:00 75 10/08/16 00:00 69 10/07/16 20:00 87 10/07/16 20:00 96.4 77 18 152/92 100 Room Air 10/07/16 16:00 96.4 69 18 124/63 97 Room Air 10/07/16 16:00 90 General Appearance: WD/WN, no apparent distress, alert EENT: PERRL/EOMI Neck: non-tender, supple, no JVD Rhythm: NSR Cardiovascular: normal rate, regular rhythm, no gallop/murmur Respiratory/Chest: lungs clear Abdomen: normal bowel sounds, non tender, soft Extremities: no swelling Intake and Output 10/07/16 10/08/16 19:00 07:00 Intake Total 460 ml Balance 460 ml Intake Oral 460 ml # Voids 2 2 Microbiology Date/Time Source Procedure Growth Status 10/06/16 18:00 Rectum VRE Culture - Final NO VANCOMYCIN RESISTANT ENTEROCOCCUS ... Complete BRUNO EVANS Oct 08, 2016 14:19
[2016-10-08 16:00] VITALS: BP 122/55
[2016-10-08 20:00] VITALS: BP_SYST 137; BP_SYST 196; BP_DIAS 80; BP_DIAS 83
[2016-10-08] MEDS: Nortriptyline 25mg cap ORAL SCH (21:15)
[2016-10-08] MEDS: TraZODone 50mg tab ORAL SCH (21:16)
[2016-10-08] MEDS ORDERED: Tylenol #3 tab (300mg/30mg) ORAL PRN (23:45)
[2016-10-09 04:00] VITALS: BP 133/55
[2016-10-09 07:57] VITALS: BP 119/61
[2016-10-09 08:38] LABS: HEMOLYSIS 15; IRON 57 ug/dL (37-145); TOTAL IRON BINDING CAPACITY 216 ug/dL (250-400)
[2016-10-09] MEDS: Sertraline 50mg tab ORAL SCH (09:21)
[2016-10-09] MEDS: Spironolactone 25mg tab ORAL SCH (09:21)
[2016-10-09] MEDS: Memantine 5 MG TAB ORAL SCH ×2 (09:21→17:04)
[2016-10-09] MEDS: Aspirin EC 81mg tab ORAL SCH (09:21)
[2016-10-09] MEDS: Heparin 5000 units/ml inj SUBQ SCH ×2 (09:23→20:28)
[2016-10-09] MEDS ORDERED: ALPRAZolam 0.5mg tab ORAL ONE (11:30)
[2016-10-09 11:40] VITALS: BP 119/63
--- NOTE | 2016-10-09 13:01 | Consultation ---
Consult Note Consult Note DATE OF CONSULTATION: 10/09/2016 NEUROLOGY CONSULTATION CONSULTING PHYSICIAN: Martell Mojica M.D. REQUESTING PHYSICIAN: Olayinka Albert M.D. HISTORY: Ms. Gayatri Urbano is an 81-year-old, right-handed, black lady, who does have past history of hypertension, dyslipidemia, coronary artery disease - status post stent placement, a stroke a few years ago associated with left-sided weakness, and arthritis involving multiple joints especially both shoulders. She was living in [place] until a few months ago and while she was there, she would have days and weeks where she would feel tired, had generalized body aches and pains, and would feel unwell. She was worked up for the problem there and no specific etiology was discovered. She then moved back to [place] in August 2016 and then towards the end of August, she started to have similar symptoms and as a result of that was hospitalized at [facility] in September 2016. She was worked up for her problems and no definite etiology for her problem was discovered. Over time she improved and was sent home. At home she was not walking much and was deteriorating. She presented to the emergency room on 10/06/16 with complaints of left-sided weakness, generalized weakness and fatigue. This consultation was requested to evaluate her for her increased left sided weakness. At this point in time, she complains of a feeling unwell. She is having more problems with walking and feels generally weak. PAST MEDICAL HISTORY: Significant for high blood pressure, dyslipidemia, coronary artery disease - status post stent placement, stroke with left paresis a few years ago, arthritis, generalized weakness and malaise.. FAMILY HISTORY: Two of her sisters had breast cancer. One of her sisters had lung cancer. PERSONAL HISTORY: Home: She lives with her daughter and grandchildren. 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 Habits: She smoked for a few years numerous years ago. She denies the use of alcohol or illicit drugs. PHYSICAL EXAMINATION: GENERAL: She is a well-developed, well-nourished, slightly obese, black lady lying in bed in no acute distress. VITAL SIGNS: Pulse 68 per minute, blood pressure 119/63 mmHg, respirations 20 per minute, and temperature 97 degrees Fahrenheit. HEAD: Normocephalic and atraumatic. EENT: Examination benign. NECK: No neck rigidity was observed. NEUROLOGICAL EXAMINATION: MENTAL STATUS EXAMINATION: She was alert and awake. She was oriented to person, place, and time. She was able to recall 3/3 words immediately, but could only remember 2/3 words in 1 minute and 3 minutes even on the second trial. She was able to remember presidents Trump and Obama, but could not remember presidents prior to that. Her mathematical skills were impaired. Her visuospatial function was also impaired. SPEECH: She had no dysarthria. LANGUAGE: She had anomia for low-frequency words. CRANIAL NERVE EXAMINATION: II: The visual uysuf were intact to confrontation testing. III, IV & : External ocular movements were full and the pupils 3 mm in diameter, equal, round, regular, and reactive to light. V: She had normal facial sensations and the temporales, masseters, and pterygoids functioned normally. VII: She had a trace left VII central facial paresis. VIII: She was able to hear well bilaterally and had no nystagmus. IX: The palate moved symmetrically on phonation. X: She had no hoarseness of voice. XI: The sternocleidomastoids and trapezii functioned normally. XII: The tongue was in the midline without any fasciculations or atrophy. MOTOR SYSTEM: The tone was normal in all four extremities. Examination of muscle mass revealed no focal wasting. Examination of power revealed grade 5/5 power in all muscle groups tested except for both shoulders where the motion was limited by pain. She also had grade 4+/5 power in the left finger extensors and iliopsoas - she exhibited give-way weakness on the left side. SENSORY EXAMINATION: She had intact sensations to pinprick, light touch, and graphesthesia. COORDINATION: She performed well on [id number] and [id number] testing. REFLEXES: Trace+ and bilaterally symmetrical at the biceps, triceps, brachioradialis, and knees. 0 at both ankles. The plantar responses were flexor bilaterally. STANCE: She stood up with support. GAIT: She walked with support with mildly left paretic gait. DIAGNOSTIC IMPRESSION: 1. Ms. Gayarti Urbano is an 81-year-old, right-handed, black lady, who does have a past history of hypertension, dyslipidemia, hypothyroidism, coronary artery disease - status post percutaneous intervention and stent placement, stroke associated with left hemiparesis, and arthritis involving multiple joints, who a few months ago started to have periods where she felt tired but had generalized body aches and would feel unwell. This was worked up when she was in [place] with no definite diagnosis. She then moved back to [place] and felt well for some time, but then started to have the same symptoms. She was worked up for it and no definite etiology was discovered. She was then re-admitted on 10/06/16 for increased left sided weakness, generalized weakness and fatigue. 2. She continues to feel unwell, generally weak and weaker on the left. 3. On neurological examination, at this time, she does have mild problems with orientation, recent and remote memory, visuospatial function, higher cognitive function and language. She also has decreased shoulder movements due to pain and arthritis involving the joints, a mild left paresis involving the face and upper and lower extremities, and globally diminished deep tendon reflexes. She walks with left paretic gait. 4. A MRI of the brain done on 10/09/16 reveals an old right fronto-parietal stroke but no acute pathology. 5. Laboratory data have revealed that she is anemic with a HB of 9.9. Her Na is down at 132 and her CR is elevated to 1.4. Her UA reveals !+ leukocyte esterase, 0-2 RBCs and 2-4 WBCs/HPF 6. At this point in time, it is unclear as to what is causing the patient's generalized body weakness which is more marked on the left. It is unclear if the problem that she has represents a rheumatological problem. She continues to demonstrate signs of cognitive dysfunction. RECOMMENDATIONS: 1. Agree with management thus far. 2. It may be worth getting a rheumatological evaluation to determine if she has connective tissue disorder that could be causing her symptoms. 3. The patient was encouraged to stay as active as possible. 4. Mobilize with PT/OT. Thank you for entrusting me with the care of Ms. Urbano. I shall follow her with you. Martell Mojica M.D., M.S.P.MARTELL PHOENIX Oct 09, 2016 13:01
[2016-10-09 16:00] VITALS: BP 130/57
--- NOTE | 2016-10-09 16:20 | Diagnostic Imaging Report ---
Indication: Left-sided weakness Technique: sagittal T1 fast spin echo, axial T1 and T2 FLAIR PROPELLER, axial T2 FS PROPELLER, T2* GRE, axial diffusion weighted images, post contrast axial and coronal T1 FLAIR PROPELLER images. ADC and exponential ADC maps generated Comparison: 07/28/2014, also brain CT 10/06/2016 Findings: There is image degradation on a few sequences due to motion artifact.. No abnormal areas of restricted diffusion to suggest acute infarction. No acute hemorrhage or edema. No mass effect nor midline shift. No abnormal contrast enhancement. There is age-related enlargement of the ventricles and extra-axial CSF spaces. There is extensive confluent periventricular deep white matter low-attenuation, right greater than left. This is much more extensive than previously. There is some encephalomalacia in the high right parietal region near the vertex which was not evident the prior MRI, but present on recent CT. Visualized orbits and sinuses are unremarkable. . Impression: Negative for acute intracranial bleed, mass effect, infarct, or contrast enhancing lesion. High right parietal infarct, new since 2013 that also evident on recent the scans of 3 days earlier Other extensive chronic and age-related changes, progressive since previous study of 2013
[2016-10-09 20:00] VITALS: BP 137/75
--- NOTE | 2016-10-09 20:13 | Cardiology Progress Note ---
Assessment/Plan Assessment/Plan left weakness ? Chronic cough. Hyponatremia possibly related to Lexapro. Chronic renal insufficiency. Fibromyalgia. 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 appreciate neuro input ios beign trated for depression eveline consider increasing zoloft she does ok int hospital but nto sure what happens to her at home orthostatoc vital all lab last time ok tsh , b12 vit d , spep sedrate were all normal 2-weeks ago Subjective Cardiovascular: Denies: chest pain, lightheadedness Gastrointestinal/Abdominal: Denies: abdomen distended Objective Last 24 Hour Vital Signs Date Time Temp Pulse Resp B/P Pulse Ox O2 Delivery O2 Flow Rate FiO2 10/09/16 20:00 97.5 72 21 137/75 96 Room Air 10/09/16 16:00 97.5 68 21 130/57 95 Room Air 10/09/16 14:10 84 10/09/16 14:05 76 10/09/16 14:00 66 10/09/16 12:00 65 10/09/16 11:50 83 10/09/16 11:45 74 10/09/16 11:40 97.0 68 20 119/63 97 Nasal Cannula 2.0 10/09/16 11:40 68 10/09/16 09:21 62 119/61 10/09/16 08:00 32 10/09/16 07:57 97.9 62 18 119/61 97 Nasal Cannula 2.0 10/09/16 06:00 70 68 87 10/09/16 04:00 97.7 70 14 133/55 96 Room Air 10/09/16 00:00 75 10/08/16 20:51 70 66 93 General Appearance: no apparent distress Cardiovascular: normal rate, regular rhythm Respiratory/Chest: lungs clear Abdomen: normal bowel sounds, non tender, soft Extremities: no swelling Intake and Output 10/08/16 10/09/16 19:00 07:00 Intake Total 400 ml Balance 400 ml Intake Oral 400 ml # Voids 3 3 Laboratory Tests Test 10/09/16 06:35 Iron Level 57 ug/dL (37-145) Total Iron Binding Capacity 216 ug/dL (250-400) L Percent Iron Saturation 26 % (15-50) Unsaturated Iron Binding 159 ug/dL (112-346) ARNULFO VIDALES Oct 09, 2016 20:13
[2016-10-09] MEDS: TraZODone 50mg tab ORAL SCH (20:26)
[2016-10-09] MEDS: Nortriptyline 25mg cap ORAL SCH (20:26)
[2016-10-10 00:18] VITALS: BP 150/83
[2016-10-10 04:06] VITALS: BP 134/80
[2016-10-10 08:00] VITALS: BP 119/72
[2016-10-10 08:40] LABS: ANION GAP 13 (5-15); CALCIUM 9.9 mg/dL (8.6-10.2); CARBON DIOXIDE 26 mEQ/L (20-30); CHLORIDE 93 mEQ/L (98-107); CREATININE 1.4 mg/dL (0.5-0.9); HEMOLYSIS 4; POTASSIUM 4.5 mEQ/L (3.4-4.9); SODIUM 132 mEQ/L (135-145)
[2016-10-10] MEDS: Memantine 5 MG TAB ORAL SCH (08:59)
[2016-10-10] MEDS: Sertraline 50mg tab ORAL SCH (08:59)
[2016-10-10] MEDS: Spironolactone 25mg tab ORAL SCH (09:00)
[2016-10-10] MEDS: Aspirin EC 81mg tab ORAL SCH (09:01)
[2016-10-10] MEDS: Heparin 5000 units/ml inj SUBQ SCH (09:02)
--- NOTE | 2016-10-10 10:52 | Cardiology Progress Note ---
Assessment/Plan Assessment/Plan left weakness ? Chronic cough. Hyponatremia possibly related to Lexapro. Chronic renal insufficiency. Fibromyalgia. 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 appreciate neuro input d/w dr diaz who reviewed mri no acute finding ios beign trated for depression may consider increasing zoloft she does ok int hospital but nto sure what happens to her at home orthostatoc vital all lab last time ok tsh , b12 vit d , spep sedrate were all normal 2-weeks ago i will see about stopping cymbalta is already on lowest dose will chagne to every other day for 3 dose s then dc med reviewed [facility] to have gottern flu vaccine in my office but not such records will give flu vaccine if snf requries Subjective Cardiovascular: Denies: chest pain, lightheadedness, palpitations Genitourinary: Denies: burning Objective Last 24 Hour Vital Signs Date Time Temp Pulse Resp B/P Pulse Ox O2 Delivery O2 Flow Rate FiO2 10/10/16 09:00 79 81 79 10/10/16 09:00 81 119/72 10/10/16 08:12 83 10/10/16 08:00 96.8 81 17 119/72 96 Room Air 10/10/16 04:06 98.8 84 18 134/80 93 Room Air 10/10/16 04:00 82 10/10/16 04:00 78 80 82 10/10/16 00:18 98.7 78 19 150/83 97 Room Air 10/10/16 00:00 79 10/09/16 21:47 70 75 78 10/09/16 20:00 97.5 72 21 137/75 96 Room Air 10/09/16 20:00 67 10/09/16 16:00 65 10/09/16 16:00 97.5 68 21 130/57 95 Room Air 10/09/16 14:10 84 10/09/16 14:05 76 10/09/16 14:00 66 10/09/16 12:00 65 10/09/16 11:50 83 10/09/16 11:45 74 10/09/16 11:40 97.0 68 20 119/63 97 Nasal Cannula 2.0 10/09/16 11:40 68 General Appearance: alert Neck: no JVD Cardiovascular: normal rate, regular rhythm Respiratory/Chest: lungs clear, normal breath sounds Abdomen: normal bowel sounds, non tender, soft Extremities: no swelling Intake and Output 10/09/16 10/10/16 18:59 06:59 Intake Total 240 ml 260 ml Output Total 200 ml Balance 40 ml 260 ml Intake Oral 240 ml 260 ml Output Urine Total 200 ml # Voids 1 2 Laboratory Tests Test 10/10/16 07:40 Sodium Level 132 mEQ/L (135-145) L Potassium Level 4.5 mEQ/L (3.4-4.9) Chloride Level 93 mEQ/L (98-107) L Carbon Dioxide Level 26 mEQ/L (20-30) Anion Gap 13 (5-15) Blood Urea Nitrogen 19 mg/dL (7-23) Creatinine 1.4 mg/dL (0.5-0.9) H Estimat Glomerular Filtration Rate mL/min (>60) Glucose Level 115 mg/dL (74-106) H Calcium Level 9.9 mg/dL (8.6-10.2) Objective Current Medications Medications (Trade) Dose Ordered Sig/Laura Route PRN Reason Start Time Stop Time Status Last Admin Dose Admin Acetaminophen/ Codeine Phosphate (Tylenol #3) 1 tab Q6H PRN ORAL For Pain 10/08/16 23:45 10/15/16 23:44 Alprazolam (Xanax) 0.5 mg BEDTIME PRN ORAL For Anxiety 10/07/16 02:00 10/14/16 01:59 10/07/16 02:26 Aspirin (Ecotrin) 81 mg DAILY ORAL 10/07/16 09:00 11/06/16 08:59 10/10/16 09:01 Atorvastatin Calcium (Lipitor) 10 mg BEDTIME ORAL 10/07/16 21:00 11/06/16 20:59 10/09/16 20:26 Clopidogrel Bisulfate (Plavix) 75 mg DAILY ORAL 10/07/16 09:00 11/06/16 08:59 10/10/16 09:00 Dextrose (Dextrose 50%) STAT PRN IV Hypoglycemia 10/07/16 01:45 11/06/16 01:44 Duloxetine HCl (Cymbalta) 20 mg DAILY ORAL 10/07/16 09:00 11/06/16 08:59 10/10/16 09:01 Heparin Sodium (Porcine) (Heparin 5000 units/ml) 5,000 units EVERY 12 HOURS SUBQ 10/07/16 09:00 11/06/16 08:59 10/10/16 09:02 Lactulose (Cephulac) 10 gm DAILY PRN ORAL Constipation 10/07/16 02:00 11/06/16 01:59 10/08/16 18:20 Levothyroxine Sodium (Synthroid) 50 mcg ACBREAKFAST ORAL 10/07/16 06:30 11/06/16 06:29 10/10/16 06:37 Lidocaine (Lidoderm 5% PATCH) 1 patch Q24HRS TDERMAL 10/09/16 21:00 11/08/16 20:59 10/09/16 20:30 Memantine (Namenda) 5 mg BID ORAL 10/07/16 09:00 11/06/16 08:59 10/10/16 08:59 Metoprolol Succinate (Toprol XL) 25 mg DAILY ORAL 10/07/16 09:00 11/06/16 08:59 10/10/16 09:00 Nortriptyline HCl (Pamelor) 25 mg BEDTIME ORAL 10/07/16 21:00 11/06/16 20:59 10/09/16 20:26 Ondansetron HCl (Zofran) 4 mg Q6HR PRN ORAL Nausea & Vomiting 10/07/16 02:00 11/06/16 01:59 10/07/16 18:13 Sertraline HCl (Zoloft) 50 mg DAILY ORAL 10/07/16 09:00 11/06/16 08:59 10/10/16 08:59 Spironolactone (Aldactone) 25 mg DAILY ORAL 10/07/16 09:00 11/06/16 08:59 10/10/16 09:00 Trazodone HCl (Desyrel) 50 mg BEDTIME ORAL 10/07/16 21:00 11/06/16 20:59 10/09/16 20:26 ARNULFO VIDALES 7, 2017 10:52
[2016-10-10] MEDS ORDERED: Influenza Virus Vaccine 0.5ml IM ONE ×2 (11:00→17:00)
[2016-10-10 12:00] VITALS: BP 142/90
--- NOTE | 2016-10-10 12:01 | Diagnostic Imaging Report ---
APPROVED REPORT CPT Code: 80034 Vascular Symptoms Dizziness and Vertigo Comments: Note: Internal/external carotid arteries tortuosity bilaterally. Doppler Spectral Velocity Analysis RightLeft arteries. The Doppler spectral flow analysis indicates the degree of stenosis is minimal (10%) in the common carotid artery, mild (50%) in the internal carotid artery, and minimal (10%) in the external carotid artery. VERTEBRAL- The vertebral artery is patent, without evidence of stenosis or steal. arteries. The Doppler spectral flow analysis indicates the degree of stenosis is minimal (10%) in the common carotid artery, moderate (50% - 60%) in the internal carotid artery, and minimal (10%) in the external carotid artery. VERTEBRAL- The vertebral artery is patent, without evidence of stenosis or steal.
[2016-10-10 16:00] VITALS: BP 141/58
--- NOTE | 2016-10-12 15:35 | Discharge Summary ---
Discharge Summary Hospital Course Date of Admission Oct 06, 2016 at 17:43 Date of Discharge Oct 10, 2016 at 17:17 Admitting Diagnosis CVA HPI Gayatri Urbano is a 81 year old female who was admitted on Oct 06, 2016 at 17: 43 for Cerebral Vascular Accident Hospital Course [id number] Discharge Discharge Disposition Patient was discharged to SNF/Subacute Facility(03) Discharge Diagnoses: Kati Peña NP Oct 12, 2016 15:35
--- NOTE | 2016-10-12 23:48 | Discharge Summary 2 SIG ---
DATE OF ADMISSION: 10/06/2016 DATE OF DISCHARGE: 10/10/2016 ED TECH DOCTOR: Markus Mojica M.D. BRIEF HOSPITAL COURSE: The patient is an 81-year-old female with a history of hypertension, previous CVA, coronary artery disease with previous stent placement, hyperlipidemia, and arthritis, who presented to the emergency room with complaints of left-sided weakness with fatigue. In ED, head CT showed no acute intracranial pathology. She was admitted for further workup. Chest x-ray showed left basilar atelectasis. She was given aspirin and Plavix and was given beta-blockers for blood pressure control. She was seen by Neurology. MRI of the brain revealed an old right frontal parietal stroke, but no acute pathology. She presented with hyponatremia, possibly related to Lexapro. Myopathy was likely related to high doses of Lipitor. She will eventually need rheumatology evaluation, which can be done as an outpatient. She was eventually discharged to a SNF. FINAL DIAGNOSES: 1. Weakness, more on the left, secondary to rheumatologic process. 2. Chronic cough. 3. Hyponatremia. 4. Chronic renal insufficiency. 5. Fibromyalgia. 6. Myopathy. 7. Moderate left ICA stenosis. Olayinka Albert M.D. I have been assigned to dictate discharge summary on this account and I was not involved in the patient's management. Kati Peña N.P. DR: MARIA GUADALUPE JOB#: [id number] CC: AYLA
--- NOTE | 2016-10-16 08:47 | Cardiology Report ---
APPROVED REPORT EKG Measurement Heart [id number] Normal sinus rhythm Moderate voltage criteria for LVH, may be normal variant Borderline ECG
== END 2016-10-10 17:17 | DRG 92 ==
LOC: ENRESERVDT → ENRESERVTM → EMR 17:42 → 2E 17:43 → EDBEDREQ 23:03
DX: G72.0 Drug-induced myopathy (principal); E87.1 Hypo-osmolality and hyponatremia; D64.9 Anemia, unspecified; I12.9 Hypertensive chronic kidney disease with stage 1 through stage 4 chronic kidney disease, or unspecified chronic kidney disease; T46.6X5A Adverse effect of antihyperlipidemic and antiarteriosclerotic drugs, initial encounter; M79.7 Fibromyalgia; I25.10 Atherosclerotic heart disease of native coronary artery without angina pectoris; Z95.5 Presence of coronary angioplasty implant and graft; T43.225A Adverse effect of selective serotonin reuptake inhibitors, initial encounter; Y92.009 Unspecified place in unspecified non-institutional (private) residence as the place of occurrence of the external cause; Z86.73 Personal history of transient ischemic attack (TIA), and cerebral infarction without residual deficits; R05 Cough; N18.9 Chronic kidney disease, unspecified; I65.22 Occlusion and stenosis of left carotid artery; E78.5 Hyperlipidemia, unspecified; M19.90 Unspecified osteoarthritis, unspecified site; E03.9 Hypothyroidism, unspecified; Z23 Encounter for immunization
CPT/HCPCS: 36415; 70450; 70553; 71010; 80048; 80053; 80300; 81003; 82550; 83540; 83550; 83880; 84484; 85025; 85610; 85730; 87081; 93005; 93880; A9585; J2405; Q2036

== ENCOUNTER 2017-02-21 15:00 | Outpatient (RCR) | payer MEDICARE, MEDICAID | END 2017-03-05 | disposition home or self-care (01) | LOC: PTY 15:00 | DX: M19.012 Primary osteoarthritis, left shoulder (principal); M19.011 Primary osteoarthritis, right shoulder; I10 Essential (primary) hypertension; I25.2 Old myocardial infarction; Z86.73 Personal history of transient ischemic attack (TIA), and cerebral infarction without residual deficits | CPT/HCPCS: 97110; 97140; 97162; G0283; G8984; G8985 ==

== ENCOUNTER 2017-04-04 13:45 | Outpatient (RCR) | payer MEDICARE, MEDICAID | END 2017-04-05 | disposition home or self-care (01) | LOC: PTY 13:45 | DX: M19.011 Primary osteoarthritis, right shoulder (principal); M19.012 Primary osteoarthritis, left shoulder; M81.0 Age-related osteoporosis without current pathological fracture; M54.9 Dorsalgia, unspecified; E03.9 Hypothyroidism, unspecified; I10 Essential (primary) hypertension | CPT/HCPCS: 97110; 97140; G0283 ==

== ENCOUNTER 2017-04-20 13:00 | Outpatient (RCR) | payer MEDICARE, MEDICAID | END 2017-05-05 | disposition home or self-care (01) | LOC: PTY 13:00 | DX: M19.012 Primary osteoarthritis, left shoulder (principal); M19.011 Primary osteoarthritis, right shoulder | CPT/HCPCS: 97110; 97140; G0283 ==

== ENCOUNTER 2017-05-02 11:00 | Emergency (ER) | payer MEDICARE, MEDICAID ==
[~2017-05-02] VITALS: Ht 152.4 cm; Wt 81.6 kg
--- NOTE | 2017-05-02 11:27 | Emergency Room Report ---
History of Present Illness General Chief Complaint: Stroke Symptoms Source: Patient Present Illness HPI Patient is 82-year-old female who presented after increased left-sided weakness. Patient was having difficulty with movement of her left upper and lower extremity for approximately one hour. Patient currently had prior history of CVA however I was not noted to have residual deficit. Patient had onset of symptoms approximately one hour prior to arrival. Patient had previously been able to ambulate to the bathroom. The patient was reportedly unable to move her left upper extremity. Patient prior history of hypertension. Patient's primary care physician aline Albert Allergies: Coded Allergies: No Known Allergies (Verified , 04/23/15) Patient History Past Medical History: see triage record Reviewed Nursing Documentation: PMH: Agreed Nursing Documentation-PMH Past Medical History: No History, Except For Hx Cardiac Problems: No - hyperlipidemia,arthritis, shunts unsure where per daughter Hx Hypertension: Yes Hx Pacemaker: No Hx Asthma: No Hx COPD: No Hx Diabetes: No Hx Cancer: No Hx Gastrointestinal Problems: Yes Hx Dialysis: No Hx Neurological Problems: Yes Hx Cerebrovascular Accident: Yes Hx Transient Ischemic Attacks: Yes Hx Seizures: No Hx Vertigo: Yes Hx Dizziness: Yes Hx Syncope: Yes Hx Headaches: Yes Hx Weakness: Yes Hx Fatigue: Yes Review of Systems All Other Systems: negative except mentioned in HPI Physical Exam Vital Signs Date Time Temp Pulse Resp B/P (MAP) Pulse Ox O2 Delivery O2 Flow Rate FiO2 05/02/17 11:13 96.6 90 18 164/82 96 Room Air Sp02 EP Interpretation: reviewed, normal General Appearance: normal inspection, well appearing, no apparent distress, alert Head: atraumatic ENT: normal ENT inspection, hearing grossly normal, normal voice Neck: normal inspection, full range of motion, supple, no bony tend Respiratory: normal inspection, lungs clear, normal breath sounds, no respiratory distress, no retraction, no wheezing Cardiovascular #1: regular rate, rhythm, no edema Gastrointestinal: normal inspection, normal bowel sounds, non tender, soft, no guarding, no hernia Genitourinary: no CVA tenderness Musculoskeletal: normal inspection, back normal, normal range of motion Neurologic: normal inspection, alert, responsive, speech normal Psychiatric: normal inspection, judgement/insight normal, mood/affect normal Skin: normal inspection, normal color, no rash Procedures Critical Care Time Critical Care Time Patient had a critical medical condition which untreated could potentially result in life or limb threatening injury. Total critical care time excluding procedures approximately 35 minutes. Medical Decision Making Diagnostic Impression: Primary Impression: CVA (cerebral infarction) ER Course The patient presented for left sided weakness. Differential diagnosis included was not limited to CVA, intracranial hemorrhage, spinal cord infarction, aortic dissection and among others.Because of complexity of patient's case laboratory testing and imaging studies were ordered.The patient's initial blood sugar was noted to greater than 110. CT of the head was ordered due to patient's acute onset of neurologic deficit. Patient was noted to have some left-sided weakness to her upper extremity which he does not appear to be able to move as well as her left lower extremity. The patient's toes were upgoing on the right leg. But appeared be downgoing on the left side. Patient was discussed with Dr. Arnulfo Albert. CT the head read by radiology showed possible new internal capsule stroke compared baseline CT approximately 6 months prior. There is no evident acute hemorrhage. Patient was given aspirin by mouth. Laboratory testing was ordered but is currently pending. The patient noted have some improvement in her left-sided weakness during ER course with some residual left-sided weakness. The patient was not giving TPA due to rapid improvement in her symptoms. Patient was given by mouth aspirin Labs Test 05/02/17 11:40 White Blood Count 7.3 K/UL (4.8-10.8) Red Blood Count 3.24 M/UL (4.20-5.40) Hemoglobin 10.0 G/DL (12.0-16.0) Hematocrit 30.3 % (37.0-47.0) Mean Corpuscular Volume 94 FL (80-99) Mean Corpuscular Hemoglobin 30.8 PG (27.0-31.0) Mean Corpuscular Hemoglobin Concent 32.9 G/DL (32.0-36.0) Red Cell Distribution Width 13.8 % (11.6-14.8) Platelet Count 265 K/UL (150-450) Mean Platelet Volume 6.5 FL (6.5-10.1) Neutrophils (%) (Auto) 60.6 % (45.0-75.0) Lymphocytes (%) (Auto) 27.8 % (20.0-45.0) Monocytes (%) (Auto) 7.4 % (1.0-10.0) Eosinophils (%) (Auto) 2.3 % (0.0-3.0) Basophils (%) (Auto) 1.9 % (0.0-2.0) Prothrombin Time 9.7 SEC (9.30-11.50) Prothromb Time International Ratio 0.9 (0.9-1.1) Activated Partial Thromboplast Time 25 SEC (23-33) Sodium Level 136 mEQ/L (135-145) Potassium Level 5.1 mEQ/L (3.4-4.9) Chloride Level 101 mEQ/L (98-107) Carbon Dioxide Level 23 mEQ/L (20-30) Anion Gap 12 (5-15) Blood Urea Nitrogen 35 mg/dL (7-23) Creatinine 2.0 mg/dL (0.5-0.9) Estimat Glomerular Filtration Rate mL/min (>60) Glucose Level 117 mg/dL (74-106) Calcium Level 10.1 mg/dL (8.6-10.2) Total Bilirubin 0.2 mg/dL (0.0-1.2) Aspartate Amino Transf (AST/SGOT) 17 U/L (5-40) Alanine Aminotransferase (ALT/SGPT) 16 U/L (3-33) Alkaline Phosphatase 106 U/L (35-104) Total Protein 6.8 g/dL (6.6-8.7) Albumin 3.9 g/dL (3.5-5.2) Globulin 2.9 g/dL Albumin/Globulin Ratio 1.3 (1.0-2.7) Triglycerides Level 68 mg/dL (< 150) Cholesterol Level 204 mg/dL (< 200) LDL Cholesterol 119 mg/dL (60-99) HDL Cholesterol 71 mg/dL (> 60) Cholesterol/HDL Ratio 2.9 (3.3-4.4) Last Vital Signs Date Time Temp Pulse Resp B/P (MAP) Pulse Ox O2 Delivery O2 Flow Rate FiO2 05/02/17 11:13 96.6 90 18 164/82 96 Room Air Status: improved Disposition: XFER SHT-TRM HOSP Condition: Critical Referrals: ARNULFO ALBERT (PCP) Jules Urbano May 02, 2017 11:27
[2017-05-02 11:50] VITALS: BP 138/79
[2017-05-02 11:50] LABS: BASOPHILS % (AUTO) 1.9 % (0.0-2.0); EOSINOPHILS % (AUTO) 2.3 % (0.0-3.0); LYMPHOCYTES % (AUTO) 27.8 % (20.0-45.0); MEAN CORPUSCULAR HEMOGLOBIN 30.8 PG (27.0-31.0); MEAN CORPUSCULAR HGB CONC 32.9 G/DL (32.0-36.0); MEAN CORPUSCULAR VOLUME 94 FL (80-99); MEAN PLATELET VOLUME 6.5 FL (6.5-10.1); MONOCYTES % (AUTO) 7.4 % (1.0-10.0); NEUTROPHILS % (AUTO) 60.6 % (45.0-75.0); PLATELET COUNT 265 K/UL (150-450); RED BLOOD COUNT 3.24 M/UL (4.20-5.40); RED CELL DISTRIBUTION WIDTH 13.8 % (11.6-14.8); WHITE BLOOD COUNT 7.3 K/UL (4.8-10.8)
[2017-05-02 11:59] LABS: INR 0.9 (0.9-1.1); PROTHROMBIN TIME 9.7 SEC (9.30-11.50)
--- NOTE | 2017-05-02 12:03 | Diagnostic Imaging Report ---
Indications: Weakness code stroke Technique: Spiral acquisitions obtained through the brain. Angled axial and coronal 5 x 5 mm slices were reconstructed. Total dose length product 1347 mGycm. CTDI vol(s) 70 mGy. Dose reduction achieved using automated exposure control Comparison: 10/06/2016 Findings: There is some encephalomalacia in the right high frontal lobe. There is extensive periventricular deep white matter chronic ischemic change. There is age-related enlargement of ventricles and extra axial CSF spaces. Lacunar infarcts are seen in the basal ganglia bilaterally. Questionable old lacunar infarct in the central midbrain. No acute hemorrhage or edema. No mass effect or midline shift. Intact calvarium. Visualized orbits and sinuses are unremarkable. Mastoids are hypoplastic on the left. No significant interim change Impression: Chronic and age-related changes. Old right frontal lobe infarct Negative for acute intracranial bleed or mass effect Stat code stroke results phoned to Dr. Urbano at 1140 on 05/02/[address] scanner at [facility] is accredited by the [employer] and the scans are performed using protocols designed to limit radiation exposure to as low as reasonably achievable to attain images of sufficient resolution adequate for diagnostic evaluation.
[2017-05-02 12:04] LABS: ALANINE AMINOTRANSFERASE 16 U/L (3-33); ALBUMIN/GLOBULIN RATIO 1.3 (1.0-2.7); ANION GAP 12 (5-15); ASPARTATE AMINO TRANSFERASE 17 U/L (5-40); CALCIUM 10.1 mg/dL (8.6-10.2); CARBON DIOXIDE 23 mEQ/L (20-30); CHLORIDE 101 mEQ/L (98-107); CHOLESTEROL 204 mg/dL (< 200); CHOLESTEROL/HDL RATIO 2.9 (3.3-4.4); HEMOLYSIS 10; LDL CHOLESTEROL (CALC.) 119 mg/dL (60-99); POTASSIUM 5.1 mEQ/L (3.4-4.9); SODIUM 136 mEQ/L (135-145); TOTAL PROTEIN 6.8 g/dL (6.6-8.7)
[2017-05-02] MEDS ORDERED: Alteplase 100mg Inj IV ONE ×4 (12:30)
[2017-05-02 12:51] VITALS: BP 144/69
== END 2017-05-02 12:55 | disposition short-term general hospital (02) ==
LOC: EMR 11:23
DX: I63.9 Cerebral infarction, unspecified (principal); I10 Essential (primary) hypertension; Z87.19 Personal history of other diseases of the digestive system; Z86.73 Personal history of transient ischemic attack (TIA), and cerebral infarction without residual deficits; Z86.69 Personal history of other diseases of the nervous system and sense organs; R42 Dizziness and giddiness; R55 Syncope and collapse; R51 Headache; R53.83 Other fatigue
CPT/HCPCS: 36415; 70450; 80053; 80061; 82962; 85025; 85610; 85730; 93005; 96374